=== PATIENT | female | born 1980 | race Caucasian/White ===

== ENCOUNTER 2020-06-18 11:08 | Outpatient (CLI) | payer OTHER, SELFPAY ==
--- NOTE | ~2020-06-18 | XR_ITS ---
XR hip RT min 2V 06/18/2020 11:34 Indication: Right hip pain Procedure: 3 views right hip Comparison: No prior studies for comparison. Findings: No acute fracture or traumatic malalignment. No significant soft tissue abnormality. Sacral foramen are symmetric. No significant joint space narrowing. Impression: 1: No significant bone or joint abnormality. Reviewed, dictated and finalized at location A. Impression: 1: No significant bone or joint abnormality.
[2020-06-18 12:43] LABS: Basophils Absolute Auto 0.1 K/mm3 (0.0-0.1); Basophils Percent Auto 0.9 % (0.2-1.2); Eosinophils Absolute Auto 0.1 K/mm3 (0-0.3); Eosinophils Percent Auto 1.7 % (0-4.4); Hematocrit 39.7 % (37.0-47.0); Hemoglobin 13.3 g/dL (12.0-15.0); Immature Granulocyte Absolute 0.01 K/mm3 (0.00-0.031); Immature Granulocyte Percent A 0.1 % (0-0.5); Lymphocytes Percent Auto 25.7 % (18.3-44.2); Mean Corpuscular HGB Conc 33.5 g/dl (32-36); Mean Corpuscular Hemoglobin 30.4 pg (26-34); Mean Corpuscular Volume 90.6 fl (80-100); Mean Platelet Volume 10.9 fl (7.4-10.4); Monocytes Absolute Auto 0.7 K/mm3 (0.1-0.6); Monocytes Percent Auto 8.5 % (2.6-8.5); Neutrophils Absolute Auto 4.9 K/mm3 (1.3-6.7); Neutrophils Percent Auto 63.1 % (45.5-73.1); Platelet Count Result 340 k/mm3 (150-375); Red Blood Count 4.38 M/mm3 (4.2-5.4); Red Cell Distribution Width 13.1 % (11.5-14.5); White Blood Count 7.8 K/mm3 (4.5-10.0)
[2020-06-18 13:00] LABS: Alanine Aminotransferase 18 U/L (4-35); Albumin Level 5.1 g/dL (3.5-5.1); Alkaline Phosphatase 57 U/L (38-126); Anion Gap 11 mmol/L (8-16); Aspartate Amino Transferase 26 U/L (14-36); Bilirubin,Total 0.3 mg/dL (0.2-1.3); Blood Urea Nitrogen 10 mg/dL (7-17); Carbon Dioxide 27 mmol/L (22-30); Chloride 98 mmol/L (98-107); Cholesterol 198 mg/dL (0-200); Estimated Glomerular Filt Rate > 60; Glucose 82 mg/dL (65-105); HDL Direct 92 mg/dL; Potassium 4.5 mmol/L (3.4-5.0); Sodium 136 mmol/L (137-145); Triglycerides 194 mg/dL (<150)
[2020-06-18 13:12] LABS: LDL Cholesterol Direct 85 mg/dL
[2020-06-18 13:16] LABS: Creatinine Urine 19.6 mg/dL
[2020-06-18 13:31] LABS: Total Triiodothyronine (T3) 1.22 NG/ML (0.97-1.69)
[2020-06-18 13:32] LABS: Free T4 Free Thyroxine 0.92 ng/mL (0.78-2.19); Vitamin D 25 Hydroxy 39.2 ng/mL
[2020-06-18 13:32] LABS: Microalbumin Urine Random < 6.0 mg/L (0-16.7)
== END 2020-06-18 11:09 | disposition home or self-care (01) ==
PROVIDERS: PCP Family Medicine; Visit Provider Nurse Practitioner
DX: Z00.01 Encounter for general adult medical examination with abnormal findings (principal); M25.551 Pain in right hip; I10 Essential (primary) hypertension; G35 Multiple sclerosis
CPT/HCPCS: 36415; 73502; 80053; 80061; 82043; 82306; 84439; 84443; 84480; 85025

== ENCOUNTER 2020-08-15 13:54 | Outpatient (CLI) | payer OTHER, SELFPAY ==
--- NOTE | ~2020-08-15 | MR_ITS ---
EXAMINATION: MR brain/brain stem wo/w con DATE: 08/15/2020 15:23 INDICATION: Multiple sclerosis. TECHNIQUE: Magnetic resonance imaging (MRI) of the brain and brainstem was performed without and with 10 mL MultiHance intravenous contrast. Sequences included sagittal and axial T1-weighted FLAIR, axia l T1-weighted FSE, axial diffusion-weighted FS EPI, sagittal T2-weighted FLAIR, axial T2*-weighted GR E, axial T2-weighted FLAIR Propeller, and axial T2-weighted Propeller. Postcontrast sequences include d axial, coronal, and sagittal T1-weighted FSE. Apparent diffusion coefficient (ADC) maps were create d. COMPARISON: Brain MRI 05/25/2013, 10/25/16 FINDINGS: There are greater than 20 total lesions of increased T2-weighted signal intensity in the br ain. Of these lesions, many are confluent in the periventricular region, several are juxtacortical, a nd one is infratentorial in the left midbrain. None of the lesions enhance. There is cystic encephalo malacia in the left occipital lobe periventricular white matter. There is no acute ischemic infarct o r intracranial hemorrhage. The ventricles are normal in size. The orbits are normal. There is mild mu cosal thickening in left maxillary sinus. The mastoid air cells are normal. IMPRESSION: 1. White matter lesions in the brain without change in number or distribution from 05/25/13, consistent with multiple sclerosis. Reviewed, dictated and finalized at location A. IMPRESSION: 1. White matter lesions in the brain without change in number or distribution f rom 05/25/13, consistent with multiple sclerosis.
--- NOTE | ~2020-08-15 | MR_ITS ---
EXAMINATION: MR cervical spine wo/w con DATE: 08/15/2020 15:40 INDICATION: Multiple sclerosis. TECHNIQUE: Magnetic resonance imaging (MRI) of the cervical spine was performed without and with 10 m L MultiHance intravenous contrast. Sequences included sagittal and axial T2-weighted FSE, sagittal ST IR FSE, and sagittal and axial T1-weighted FSE. Postcontrast sequences included sagittal and axial T1 -weighted FS FSE. COMPARISON: Cervical spine MRI 10/25/2016, 05/25/2013 FINDINGS: There is kyphosis of cervical spine and 10 degrees dextroscoliosis of cervicothoracic spine . Vertebral body heights are normal. There is mildly decreased disc height at C5-C6. There are approx imately 3 lesions of increased T2-weighted signal intensity in the cervical spinal cord. No abnormal contrast enhancement. The following disc levels are specifically discussed: C2-C3: The disc does not extend beyond the endplate margin. There is no uncovertebral joint osteoarth ritis. There is mild bilateral facet joint osteoarthritis. There is no neural foraminal stenosis. The re is no central canal stenosis. C3-C4: The disc does not extend beyond the endplate margin. There is no uncovertebral joint osteoarth ritis. There is no facet joint osteoarthritis. There is no neural foraminal stenosis. There is no roxie tral canal stenosis. C4-C5: The disc is mildly bulging. There is no uncovertebral joint osteoarthritis. There is no facet joint osteoarthritis. There is no neural foraminal stenosis. There is no central canal stenosis. C5-C6: The disc is bulging. There is mild bilateral uncovertebral joint osteoarthritis. There is mild left facet joint osteoarthritis. There is no neural foraminal stenosis. There is mild central canal stenosis with ventral indentation of the spinal cord. C6-C7: The disc does not extend beyond the endplate margin. There is no uncovertebral joint osteoarth ritis. There is no facet joint osteoarthritis. There is no neural foraminal stenosis. There is no roxie tral canal stenosis. C7-T1: The disc does not extend beyond the endplate margin. There is no uncovertebral joint osteoarth ritis. There is no facet joint osteoarthritis. There is no neural foraminal stenosis. There is no roxie tral canal stenosis. IMPRESSION: 1. Spinal cord lesions, stable from 05/25/2013, consistent with multiple sclerosis. 2. Mild cervical spondylosis. Reviewed, dictated and finalized at location A. IMPRESSION: 1. Spinal cord lesions, stable from 05/25/2013, consistent with multiple sclerosi s. 2. Mild cervical spondylosis.
== END 2020-08-15 13:55 | disposition home or self-care (01) ==
PROVIDERS: PCP Family Medicine; Visit Provider Psychiatry & Neurology Neurology
DX: G35 Multiple sclerosis (principal); M47.812 Spondylosis without myelopathy or radiculopathy, cervical region
CPT/HCPCS: 70553; 72156; A9577

== ENCOUNTER 2022-12-20 15:39 | Outpatient (CLI) | payer OTHER, SELFPAY ==
--- NOTE | ~2022-12-20 | XR_ITS ---
EXAMINATION: SACRUM/COCCYX DATE: 12/20/2022 16:12 INDICATION: Tail bone pain and low back pain after fall TECHNIQUE: Three views sacrum/coccyx FINDINGS: No prior studies There is no displaced fracture of the sacrum. The coccyx demonstrates overall normal morphology with out acute angulation. IMPRESSION: 1. No acute displaced osseous abnormality of the sacrum. Suspicion for occult or nondisplaced sacral fracture can either be evaluated with CT or MRI. 2. Grossly normal morphology to the coccyx without acute angulation. However, due to the wide range of normal variation of the coccyx, acute injury would be best evaluated by clinical examination and patient's symptoms. Reviewed, dictated and finalized at location L. R ENERGY SYSTEM INSTALLER
--- NOTE | ~2022-12-20 | XR_ITS ---
EXAMINATION: XR lumbar spine 2-3V DATE: 12/20/2022 16:11 INDICATION: Low back pain TECHNIQUE: Anteroposterior and lateral views of the lumbar spine, and cone-down lateral view of the l umbosacral junction were obtained. COMPARISON: None. FINDINGS: Bone alignment is normal. There is no fracture. There is mild loss of intervertebral disc s pace height at L5-S1. The vertebral body heights are maintained. IMPRESSION: 1. Mild lumbar spondylosis without acute findings. Reviewed, dictated and finalized at location F. INE ATTENDANT
== END 2022-12-20 15:40 | disposition home or self-care (01) ==
PROVIDERS: PCP Family Medicine; Visit Provider Nurse Practitioner Adult Health
DX: R25.2 Cramp and spasm (principal); M54.50 Low back pain, unspecified; M43.06 Spondylolysis, lumbar region
CPT/HCPCS: 72100; 72220

== ENCOUNTER 2024-09-14 11:39 | Emergency (ER) | payer OTHER, SELFPAY ==
[2024-09-14] VITALS (7 sets, daily range): BP systolic 110–141; BP diastolic 84–99; PULSE 77–146; RESP 13–20; TEMP 36.2–36.6; O2SAT 99–100
--- NOTE | ~2024-09-14 | CT_ITS ---
EXAMINATION: CT brain wo con DATE: 09/14/2024 18:41 INDICATION: paresthesias abdominal wall to thighs, hx of MS . TECHNIQUE: Computed tomography (CT) of the head was performed without intravenous contrast. The mA wa s adjusted according to patient size. Iterative reconstruction technique was employed. The dose-lengt h product was 605.33 mGy-cm. COMPARISON: MR brain 08/15/2020. FINDINGS: No acute intracranial hemorrhage or extra-axial fluid collection. No hydrocephalus, mass, or herniation. No acute ischemic infarct. Unremarkable dural venous sinus attenuation. No acute osseous abnormality. The aerated spaces are clear. Mild chronic white matter changes IMPRESSION: No acute intracranial process. Reviewed, dictated and finalized at location K. OF BUSINESS DEVELOPMENT
--- NOTE | 2024-09-14 13:03 | ECG_ITS ---
Test Date: 2024-09-14 13:12:41 Measurements Intervals [place] Rate: 108 P: 83 NH: 161 QRS: 79 QRSD: 68 T: 56 QT: 302 QTc: 406 Interpretive Statements SINUS TACHYCARDIA POSSIBLE RIGHT ATRIAL ENLARGEMENT POSSIBLE LEFT ATRIAL ENLARGEMENT POSSIBLE RIGHT VENTRICULAR CONDUCTION DELAY BORDERLINE ST ABNORMALITY- ANTEROLATERAL LEADS BASELINE ARTIFACT- I, III, AVR, AVL ,AVF, V1-V6 ABNORMAL ECG No previous ECG available for comparison Electronically Signed On 09-14-2024 13:35:00 PLANT INSPECTOR by Morales Cifuentes D.O.
--- NOTE | 2024-09-14 13:05 | ED.GENADULT ---
HPI - General Adult General Chief complaint: Unspecified <JHONATHAN Sanchez Last Filed: 09/14/24 13:13> Stated complaint: numbness to bilateral legs hx of MS. <JHONATAHN Sanchez Last Filed: 09/14/24 13:13> Time Seen by Provider: 09/14/24 13:05 <JHONATHAN Sanchez Last Filed: 09/14/24 13:13> Focused HPI: Patient is a 44 y/o female, with PMH of MS, who presents to the ED with c/o numbness. Patient reports having numbness in her upper abdomen radiating down to her thighs for the past few weeks. States it feels like novocaine in her body. States it has continued to worsen each day. Reports intermittent numbness/tingling in her arms, difficulty walking, intermittent racing heart palpations, increased SOB/dizziness with exertion over past couple weeks. States she was told her iron was low via outpatient blood work 2 weeks ago. She has been taking an OTC iron supplement. Denies focal weakness/numbness, vision changes, vision loss. States she is in between neurologists currently, planning to see someone at [facility] soon. She is not currently on any medications for MS, but states that is by choice. GENERAL: Well-appearing, thin, and in no acute distress. HEAD: Normocephalic, atraumatic. CHEST: Clear to auscultation. ?No respiratory distress. HEART: Borderline tachycardic with regular rhythm.? NEURO: ?Alert and oriented x3. No focal deficits. CN 2-12 intact. Equal fire services plumber strength phyllis. Patient screened in triage and initial orders placed.? ?Additional care and disposition to be based upon?diagnostic testing and treatment. <JHONATHAN Sanchez Last Filed: 09/14/24 13:13> Source: patient <JHONTAHAN Sanchez Last Filed: 09/14/24 13:13> Mode of arrival: ambulatory <JHONATHAN Sanchez Last Filed: 09/14/24 13:13> Limitations: no limitations <JHONATHAN Sanchez Last Filed: 09/14/24 13:13> History of Present Illness HPI narrative: Agree with above <Lona Norton MD - Last Filed: 09/14/24 19:37> Related Data Allergies/adverse reactions: Allergies Allergy/AdvReac Type Severity Reaction Status Date / Time No Known Allergies Allergy Unknown Unverified 09/14/24 14:26 <Chrissy Anderson PA-C - Last Filed: 09/14/24 13:13> Review of Systems Review of Systems: All systems reviewed & are unremarkable except as noted in HPI and below <Lona Norton MD - Last Filed: 09/14/24 19:37> Exam Narrative: GENERAL: Well-appearing, in no acute distress, pleasant cooperative HEAD: Normocephalic, atraumatic. EYES: PERRLA and EOMI. ENT: Mucous membranes moist. NECK: Supple. CHEST: No respiratory distress. HEART: Regular rate and rhythm ABDOMEN: Soft, nontender, nondistended EXTREMITIES: Normal range of motion. SKIN: Warm, dry, no rash. NEURO: + decreased sensation anterior abdominal wall extending to distal thighs, 5/5 strength in all extremities Alert and oriented x3. PSYCH: Normal mood and affect. <Lona Norton MD - Last Filed: 09/14/24 19:37> Course Vital Signs Vital signs: Vital Signs Temperature 97.2 F L 09/14/24 11:43 Pulse Rate 146 H 09/14/24 11:43 Respiratory Rate 18 09/14/24 11:43 Blood Pressure 141/99 H 09/14/24 11:43 Pulse Oximetry 99 09/14/24 11:43 Temperature 97.6 F 09/14/24 19:31 Pulse Rate 83 09/14/24 19:31 Respiratory Rate 13 09/14/24 19:31 Blood Pressure 111/95 H 09/14/24 19:31 Pulse Oximetry 100 09/14/24 19:31 <Chrissy Anderson PA-C - Last Filed: 09/14/24 13:13> Vital Signs Temperature 97.2 F L 09/14/24 11:43 Pulse Rate 146 H 09/14/24 11:43 Respiratory Rate 18 09/14/24 11:43 Blood Pressure 141/99 H 09/14/24 11:43 Pulse Oximetry 99 09/14/24 11:43 Temperature 97.6 F 09/14/24 19:31 Pulse Rate 83 09/14/24 19:31 Respiratory Rate 13 09/14/24 19:31 Blood Pressure 111/95 H 09/14/24 19:31 Pulse Oximetry 100 09/14/24 19:31 <Lona Norton MD - Last Filed: 09/14/24 19:37> Medical Decision Making MDM Narrative Medical decision making narrative: MSE by MARIN in triage. <Chrissy Anderson PA-C - Last Filed: 09/14/24 13:13> MSE by MARIN in triage. 44-year-old female presenting with numbness in her abdomen extending into her thighs. States that she just wants to make sure that it is related to her MS and not something else going on. Blood work is unremarkable. CT brain shows no acute abnormalities. Discussed with the patient that MRI is needed to evaluate for progression of her MS. Offered admission but she declines and states that she would like to go home and make an outpatient appointment. Feel that she is safe to do this. Appropriate return precautions given. Discharged in stable condition. <Lona Norton MD - Last Filed: 09/14/24 19:37> Vital Signs Vital Signs: Vital Signs Temperature 97.2 F L 09/14/24 11:43 Pulse Rate 146 H 09/14/24 11:43 Respiratory Rate 18 09/14/24 11:43 Blood Pressure 141/99 H 09/14/24 11:43 Pulse Oximetry 99 09/14/24 11:43 Temperature 97.6 F 09/14/24 19:31 Pulse Rate 83 09/14/24 19:31 Respiratory Rate 13 09/14/24 19:31 Blood Pressure 111/95 H 09/14/24 19:31 Pulse Oximetry 100 09/14/24 19:31 <Chrissy Anderson PA-C - Last Filed: 09/14/24 13:13> Vital Signs Temperature 97.2 F L 09/14/24 11:43 Pulse Rate 146 H 09/14/24 11:43 Respiratory Rate 18 09/14/24 11:43 Blood Pressure 141/99 H 11/25/24 11:43 Pulse Oximetry 99 09/14/24 11:43 Temperature 97.6 F 09/14/24 19:31 Pulse Rate 83 09/14/24 19:31 Respiratory Rate 13 09/14/24 19:31 Blood Pressure 111/95 H 09/14/24 19:31 Pulse Oximetry 100 09/14/24 19:31 <Lona Norton MD - Last Filed: 09/14/24 19:37> Lab Data Result diagrams: 09/14/24 13:17 09/14/24 13:17 <Chrissy Anderson PA-C - Last Filed: 09/14/24 13:13> Labs: Lab Results 09/14/24 09/14/24 Range/Units 13:17 18:16 WBC 8.9 (4.5-10.0) K/mm3 RBC 4.08 L (4.2-5.4) M/mm3 Hgb 10.8 L (12.0-15.0) g/dL Hct 35.8 L (37.0-47.0) % MCV 87.7 (80-100) fl MCH 26.5 (26-34) pg MCHC 30.2 L (32-36) g/dl RDW 20.3 H (11.5-14.5) % Plt Count 498 H (150-375) k/mm3 MPV 10.0 (7.4-10.4) fl Immature Gran % (Auto) 0.3 (0-0.5) % Neut % (Auto) 75.1 H (45.5-73.1) % Lymph % (Auto) 15.3 L (18.3-44.2) % Hayes % (Auto) 7.3 (2.6-8.5) % Eos % (Auto) 1.3 (0-4.4) % Baso % (Auto) 0.7 (0.2-1.2) % Lymph # (Auto) 1.36 (0.9-3.2) K/mm3 Hayes # (Auto) 0.7 H (0.1-0.6) K/mm3 Eos # (Auto) 0.1 (0-0.3) K/mm3 Baso # (Auto) 0.1 (0.0-0.1) K/mm3 Abs Immat Gran (auto) 0.03 (0.00-0.031) K/mm3 Absolute Neuts (auto) 6.7 (1.3-6.7) K/mm3 Absolute Nucleated RBC 0.000 (0.0-0.012) K/mm3 Nucleated RBC % 0.0 (0.0-0.2) % PT 13.4 (11.1-14.7) Seconds INR 1.0 APTT 26.8 (22.3-36.8) Seconds Sodium 136 L (137-145) mmol/L Potassium 4.5 (3.4-5.0) mmol/L Chloride 105 (98-107) mmol/L Carbon Dioxide 25 (22-30) mmol/L Anion Gap 6 (4-12) mmol/L BUN 16 (7-17) mg/dL Creatinine 0.60 L (0.7-1.0) mg/dL Estim Creat Clear Calc 82 ml/min Estimated GFR > 60 (59 - ) Glucose 100 (65-110) mg/dL Calcium 9.9 (8.4-10.2) mg/dL Magnesium 2.0 (1.6-2.3) mg/dL Total Bilirubin 0.3 (0.2-1.3) mg/dL AST 22 (14-36) U/L ALT 12 (6-35) U/L Alkaline Phosphatase 73 (38-126) U/L Troponin I < 0.012 (0.000-0.034) ng/mL NT-Pro-B Natriuret Pep 73 (19.9-100) pg/mL Total Protein 8.0 (6.3-8.2) g/dL Albumin 4.6 (3.5-5.1) g/dL POC Urine HCG, Qual Negative (Negative) <Chrissy Anderson PA-C - Last Filed: 09/14/24 13:13> Lab Results 09/14/24 09/14/24 Range/Units 13:17 18:16 WBC 8.9 (4.5-10.0) K/mm3 RBC 4.08 L (4.2-5.4) M/mm3 Hgb 10.8 L (12.0-15.0) g/dL Hct 35.8 L (37.0-47.0) % MCV 87.7 (80-100) fl MCH 26.5 (26-34) pg MCHC 30.2 L (32-36) g/dl RDW 20.3 H (11.5-14.5) % Plt Count 498 H (150-375) k/mm3 MPV 10.0 (7.4-10.4) fl Immature Gran % (Auto) 0.3 (0-0.5) % Neut % (Auto) 75.1 H (45.5-73.1) % Lymph % (Auto) 15.3 L (18.3-44.2) % Hayes % (Auto) 7.3 (2.6-8.5) % Eos % (Auto) 1.3 (0-4.4) % Baso % (Auto) 0.7 (0.2-1.2) % Lymph # (Auto) 1.36 (0.9-3.2) K/mm3 Hayes # (Auto) 0.7 H (0.1-0.6) K/mm3 Eos # (Auto) 0.1 (0-0.3) K/mm3 Baso # (Auto) 0.1 (0.0-0.1) K/mm3 Abs Immat Gran (auto) 0.03 (0.00-0.031) K/mm3 Absolute Neuts (auto) 6.7 (1.3-6.7) K/mm3 Absolute Nucleated RBC 0.000 (0.0-0.012) K/mm3 Nucleated RBC % 0.0 (0.0-0.2) % PT 13.4 (11.1-14.7) Seconds INR 1.0 APTT 26.8 (22.3-36.8) Seconds Sodium 136 L (137-145) mmol/L Potassium 4.5 (3.4-5.0) mmol/L Chloride 105 (98-107) mmol/L Carbon Dioxide 25 (22-30) mmol/L Anion Gap 6 (4-12) mmol/L BUN 16 (7-17) mg/dL Creatinine 0.60 L (0.7-1.0) mg/dL Estim Creat Clear Calc 82 ml/min Estimated GFR > 60 (59 - ) Glucose 100 (65-110) mg/dL Calcium 9.9 (8.4-10.2) mg/dL Magnesium 2.0 (1.6-2.3) mg/dL Total Bilirubin 0.3 (0.2-1.3) mg/dL AST 22 (14-36) U/L ALT 12 (6-35) U/L Alkaline Phosphatase 73 (38-126) U/L Troponin I < 0.012 (0.000-0.034) ng/mL NT-Pro-B Natriuret Pep 73 (19.9-100) pg/mL Total Protein 8.0 (6.3-8.2) g/dL Albumin 4.6 (3.5-5.1) g/dL POC Urine HCG, Qual Negative (Negative) <Lona Norton MD - Last Filed: 09/14/24 19:37> Imaging Data Radiologist's impression: ITS Impressions Head CT 09/14/24 18:45 IMPRESSION: No acute intracranial process. <Lona Norton MD - Last Filed: 09/14/24 19:37> Critical Care Time Critical Care Time Critical Care Time: No <Lona Norton MD - Last Filed: 09/14/24 19:37> Discharge Plan Discharge Clinical Impression: Multiple sclerosis, Paresthesia <Chrissy Anderson PA-C - Last Filed: 09/14/24 13:13> Patient Disposition: Home, Self-Care <Chrissy Anderson PA-C - Last Filed: 09/14/24 13:13> Condition: Stable <Chrissy Anderson PA-C - Last Filed: 09/14/24 13:13> Instructions: Antibiotic Form, Paresthesia (ED) <Chrissy Anderson PA-C - Last Filed: 09/14/24 13:13> Additional Instructions: Your workup today shows no acute abnormalities. Please follow-up closely with Neurology as discussed. If your symptoms worsen or other concerning symptoms arise, please return to the ER. <Chrissy Anderson PA-C - Last Filed: 09/14/24 13:13> Follow-up/Referrals: Caden Cuba MD [Primary Care Provider] - <Chrissy Anderson PA-C - Last Filed: 09/14/24 13:13>
[2024-09-14 13:36] LABS: Basophils Absolute Auto 0.1 K/mm3 (0.0-0.1); Basophils Percent Auto 0.7 % (0.2-1.2); Eosinophils Absolute Auto 0.1 K/mm3 (0-0.3); Eosinophils Percent Auto 1.3 % (0-4.4); Hematocrit 35.8 % (37.0-47.0); Hemoglobin 10.8 g/dL (12.0-15.0); Immature Granulocyte Absolute 0.03 K/mm3 (0.00-0.031); Immature Granulocyte Percent A 0.3 % (0-0.5); Lymphocytes Absolute Auto 1.36 K/mm3 (0.9-3.2); Lymphocytes Percent Auto 15.3 % (18.3-44.2); Mean Corpuscular HGB Conc 30.2 g/dl (32-36); Mean Corpuscular Hemoglobin 26.5 pg (26-34); Mean Corpuscular Volume 87.7 fl (80-100); Monocytes Absolute Auto 0.7 K/mm3 (0.1-0.6); Monocytes Percent Auto 7.3 % (2.6-8.5); Neutrophils Absolute Auto 6.7 K/mm3 (1.3-6.7); Neutrophils Percent Auto 75.1 % (45.5-73.1); Platelet Count Result 498 k/mm3 (150-375); Red Blood Count 4.08 M/mm3 (4.2-5.4); Red Cell Distribution Width 20.3 % (11.5-14.5); White Blood Count 8.9 K/mm3 (4.5-10.0)
[2024-09-14 13:46] LABS: Alanine Aminotransferase 12 U/L (6-35); Albumin Level 4.6 g/dL (3.5-5.1); Alkaline Phosphatase 73 U/L (38-126); Anion Gap 6 mmol/L (4-12); Aspartate Amino Transferase 22 U/L (14-36); Bilirubin,Total 0.3 mg/dL (0.2-1.3); Blood Urea Nitrogen 16 mg/dL (7-17); Calcium 9.9 mg/dL (8.4-10.2); Carbon Dioxide 25 mmol/L (22-30); Chloride 105 mmol/L (98-107); Estimated CRCL calculation 82 ml/min; Estimated Glomerular Filt Rate > 60; Glucose 100 mg/dL (65-110); Potassium 4.5 mmol/L (3.4-5.0); Sodium 136 mmol/L (137-145)
[2024-09-14 13:56] LABS: NT Pro B Type Natriuretic Pept 73 pg/mL (19.9-100); Troponin I < 0.012 ng/mL (0.000-0.034)
[2024-09-14 14:10] LABS: Partial Thromboplastin Time 26.8 Seconds (22.3-36.8); Prothrombin Time 13.4 Seconds (11.1-14.7)
[2024-09-14] MEDS: SODIUM CHLORIDE 0.9% IV 1,000 ML 999 ML IV CONT (17:49)
[2024-09-14 18:18] LABS: BEDSIDEPREGUCG Negative (Negative)
== END 2024-09-14 19:50 | disposition home or self-care (01) ==
PROVIDERS: Physician Assistant; Emergency Provider Emergency Medicine; PCP Family Medicine
DX: R20.2 Paresthesia of skin (principal); G35 Multiple sclerosis
CPT/HCPCS: 36415; 70450; 80053; 81025; 83735; 83880; 84484; 85025; 85610; 85730; 93005; 96360; 96361; 99284; J7030

== ENCOUNTER 2024-09-20 11:30 | Inpatient (IN) | payer OTHER, SELFPAY ==
[2024-09-20] VITALS (12 sets, daily range): BP systolic 126–161; BP diastolic 87–104; PULSE 76–107; RESP 15–18; TEMP 36.2–36.9; O2SAT 98–100; BMI 17.9
--- NOTE | ~2024-09-20 | CT_ITS ---
EXAMINATION: CT brain wo con DATE: 09/20/2024 15:06 INDICATION: MS flare . TECHNIQUE: Computed tomography (CT) of the head was performed without intravenous contrast. The mA wa s adjusted according to patient size. Iterative reconstruction technique was employed. The dose-lengt h product was 605.33 mGy-cm. COMPARISON: 09/14/2024. FINDINGS: No acute intracranial hemorrhage or extra-axial fluid collection. No hydrocephalus, mass, or herniation. No acute ischemic infarct. Unremarkable dural venous sinus attenuation. No acute osseous abnormality. The aerated spaces are clear. Mild patchy chronic white matter change, greater than expected for age, consistent with the given his tory of MS. IMPRESSION: No acute intracranial process. Reviewed, dictated and finalized at location K. ENFORCEMENT OFFICER
--- NOTE | ~2024-09-20 | MR_ITS ---
EXAMINATION: MR lumbar spine wo/w con DATE: 09/21/2024 09:24 INDICATION: Multiple sclerosis. Paresthesias. TECHNIQUE: Magnetic resonance imaging (MRI) of the lumbar spine was performed without and with 10 mL MultiHance intravenous contrast. COMPARISON: None FINDINGS: Alignment is normal. Vertebral body heights are normal. There is moderately decreased disc height at L5-S1. The distal spinal cord signal intensity is normal. The conus medullaris is at L1. Th e following disc levels are specifically discussed: L1-L2: The disc does not extend beyond the endplate margin. There is mild left facet joint osteoarthr itis. There is no neural foraminal stenosis. There is no central canal stenosis. L2-L3: The disc does not extend beyond the endplate margin. There is mild right and moderate left fac et joint osteoarthritis. There is no neural foraminal stenosis. There is no central canal stenosis. L3-L4: The disc does not extend beyond the endplate margin. There is severe bilateral facet joint ost eoarthritis. There is no neural foraminal stenosis. There is no central canal stenosis. L4-L5: The disc is bulging. There is mild bilateral facet joint osteoarthritis. There is mild right n eural foraminal stenosis. There is no central canal stenosis. L5-S1: The disc is bulging and has an annular fissure. There is no facet joint osteoarthritis. There is mild bilateral neural foraminal stenosis. There is mild central canal stenosis. IMPRESSION: 1. Moderate lower lumbar spondylosis. Reviewed, dictated and finalized at location A. O PRODUCTION SPECIALIST
--- NOTE | ~2024-09-20 | XR_ITS ---
EXAMINATION: XR chest 1V Exam Date/Time: 09/20/2024 15:00 DRUG ENFORCEMENT AGENT HISTORY: MS flare Comparison: None. RESULT: Lines, tubes, and devices: None. Lungs and pleura: Clear. Cardiomediastinal silhouette: Normal. Other: No acute osseous or upper abdominal finding. Scoliosis. IMPRESSION: No acute cardiopulmonary process. Reviewed, dictated and finalized at location K. ENFORCEMENT AGENT
--- NOTE | ~2024-09-20 | MR_ITS ---
EXAMINATION: MR thoracic spine wo/w con DATE: 09/21/2024 09:24 INDICATION: Multiple sclerosis. Paresthesias. TECHNIQUE: Magnetic resonance imaging (MRI) of the thoracic spine was performed without and with 10 m L MultiHance intravenous contrast. COMPARISON: None FINDINGS: There is 23 degrees levoscoliosis of cervicothoracic spine. Vertebral body heights are norm al. Intervertebral disc heights are normal. The disc do not extend beyond the endplate margins. There is multilevel mild facet joint osteoarthritis. No neural foraminal stenosis or central canal stenosi s. There is patchy ill-defined increased T2-weighted signal intensity throughout the spinal cord. No abnormal contrast enhancement. IMPRESSION: 1. Widespread lesions in the thoracic spinal cord, consistent with multiple sclerosis. Reviewed, dictated and finalized at location A. S REPRESENTATIVE [employer] IMPRESSION: 1. Widespread lesions in the thoracic spinal cord, consistent with multiple scl erosis.
--- NOTE | ~2024-09-20 | MR_ITS ---
EXAMINATION: MR brain/brain stem wo/w con DATE: 09/22/2024 09:25 INDICATION: Multiple sclerosis, acute exacerbation. TECHNIQUE: Magnetic resonance imaging (MRI) of the brain and brainstem was performed without and with 10 mL MultiHance intravenous contrast. COMPARISON: Brain MRI 08/15/2020 FINDINGS: There are greater than 40 lesions of increased T2-weighted signal intensity in the brain. O f these lesions, many are confluent in the periventricular region, several are juxtacortical, and two are infratentorial. None of the lesions enhance. There is no acute ischemic infarct or intracranial hemorrhage. The ventricles are normal in size. The orbits are normal. The paranasal sinuses are clear . The mastoid air cells are normal. IMPRESSION: 1. Worsened white matter lesions in the brain, consistent with multiple sclerosis. Reviewed, dictated and finalized at location A. CTOR OF VOCATIONAL GUIDANCE IMPRESSION: 1. Worsened white matter lesions in the brain, consistent with multiple scleros is.
--- NOTE | ~2024-09-20 | MR_ITS ---
EXAMINATION: MR cervical spine wo/w con DATE: 09/21/2024 09:23 INDICATION: Paresthesias. Multiple sclerosis. TECHNIQUE: Magnetic resonance imaging (MRI) of the cervical spine was performed without and with 10 m L Multihance intravenous contrast. Sequences included sagittal T2-weighted FSE, sagittal T2-weighted FS FSE, sagittal T1-weighted FSE, axial T2-weighted FSE, and axial T1-weighted SE. Postcontrast seque nces included sagittal T1-weighted FS FSE, and axial T1-weighted FS SE. COMPARISON: 08/15/2020 FINDINGS: Unchanged mild cervical kyphosis and 10 degrees cervical dextrocurvature. Vertebral body heights are normal. Bone marrow signal intensity is normal. Mild disc height loss with annular fissure at C5-C6 and minimal disc height loss at C4-C5. Interval increase in size and number of multiple T2 hyperintense cord lesions contrast likely consist ent with prior history of multiple sclerosis. Increase in size of a now mildly expansile lesion located below level of the ring of C1. Increase in size of a T2 hyperintense lesion at the right side of the cord at the level of the base o f C2. No significant change in a small T2 hyperintense lesion without evident expansion of the posterior co rd at the level of C2-C3. Mild increase in size of a T2 hyperintense lesion in central posterior cord at the level of C3-C4. Increase in size, now mildly expansile mild enhancement at the left side of the cord at the level of C4. New small T2 hyperintense lesion at the right side of the cord at the level of C5. New T2 hyperintense lesion on the left at C6. Increased size of a T2 hyperintense lesion in the posterior cord at C6-C7. The following disc levels are specifically discussed: C2-C3: The disc does not extend beyond the endplate margin. There is no uncovertebral joint osteoarth ritis. There is mild bilateral facet joint osteoarthritis. There is no neural foraminal stenosis. The re is no central canal stenosis. C3-C4: The disc does not extend beyond the endplate margin. There is no uncovertebral joint osteoarth ritis. There is no facet joint osteoarthritis. There is no neural foraminal stenosis. There is no roxie tral canal stenosis. C4-C5: Disc is mildly bulging. There is mild left uncovertebral joint osteoarthritis. There is no fac et joint osteoarthritis. There is no neural foraminal stenosis. There is negligible central canal maria eugenia nosis. C5-C6: Disc is bulging with annular fissure. There is mild right and moderate left uncovertebral join t osteoarthritis. There is mild left facet joint osteoarthritis. There is no neural foraminal stenosi s. There is mild central canal stenosis with indentation of the ventral surface of the cord. C6-C7: The disc does not extend beyond the endplate margin. There is no uncovertebral joint osteoarth ritis. There is no facet joint osteoarthritis. There is no neural foraminal stenosis. There is no roxie tral canal stenosis. C7-T1: The disc does not extend beyond the endplate margin. There is no uncovertebral joint osteoarth ritis. There is no facet joint osteoarthritis. There is no neural foraminal stenosis. There is no roxie tral canal stenosis. IMPRESSION: 1. Increase in number and size of multiple T2 hyperintense lesions, coupled which appear mildly expan sile and 1 at the level of C4 with mild enhancement consistent with progression and active flare of k nown multiple sclerosis. 2. Mild cervical spondylosis. Reviewed, dictated and finalized at location A. FACTURING ADVISOR IMPRESSION: 1. Increase in number and size of multiple T2 hyperintense lesions, coupled whi ch appear mildly expansile and 1 at the level of C4 with mild enhancement consi stent with progression and active flare of known multiple sclerosis. 2. Mild cervical spondylosis.
--- NOTE | 2024-09-20 14:37 | ECG_ITS ---
Test Date: 2024-09-20 14:48:23 Measurements Intervals [place] Rate: 75 P: 79 AK: 152 QRS: 74 QRSD: 84 T: 58 QT: 356 QTc: 400 Interpretive Statements SINUS RHYTHM MODERATE VOLTAGE CRITERIA FOR LVH, CONSIDER NORMAL VARIANT [MEETS CRITERIA IN ONE OF: R(aVL), S(V1), R(V5), R(V5/V6)+S(V1)] NONSPECIFIC T-WAVE ABNORMALITY ABNORMAL ECG Electronically Signed On 09-21-2024 08:53:56 MANAGER LEGAL by Jacoby Orr M.D.
--- NOTE | 2024-09-20 14:39 | ED_ITS ---
HPI - General Adult General Chief complaint: Unspecified Stated complaint: MS flare, here to be admitted Time Seen by Provider: 09/20/24 14:07 History of Present Illness HPI narrative: 44-year-old female with history of MS presents emergency department with concerns for an MS flare. Patient states for the past month she has had progressive numbness. States this started near her diaphragm and spread to her knees. She was evaluated in our ED on 09/14/2024 for her symptoms. She had a negative workup at that time and was advised to be admitted for MRI and further workup for MS flare. The patient did not want to be admitted and she went home. She presents today because since 09/14 she has developed progressive numbness from her knees to her feet. She denies focal weakness, vision changes, head injury trauma , fever. Reports history of low iron. She does not have a neurologist. patient states she was diagnosed with MS in 2000 shortly after giving and having visual changes. She does not recall where she originally was evaluated but believes it was [place] or [facility]. States she used to see Dr. Jimenes with [facility] before he retired. Was last seen 2 years ago. She has not been on medications in approximately 10 years due to adverse reactions to medications. She does not recall what these medications were. She cannot recall her last flare but knows it has been several years. Related Data Home Medications Medication Instructions Recorded Confirmed ferrous sulfate 325 mg (65 mg 325 mg PO DAILY 09/20/24 09/20/24 iron) tablet (FeroSul) ibuprofen 400 mg tablet 400 mg PO Q6H PRN Pain 09/20/24 09/20/24 Allergies Allergy/AdvReac Type Severity Reaction Status Date / Time No Known Allergies Allergy Unknown Unverified 09/14/24 14:26 Review of Systems Review of Systems: All systems reviewed & are unremarkable except as noted in HPI and below PMFSH Past Medical History Medical History (Updated 09/20/24 @ 21:44 by Trinidad Farnsworth PA-C) Multiple sclerosis Tobacco dependence Surgical History Surgical History (Updated 09/20/24 @ 21:40 by Trinidad Farnsworth PA-C) History of tubal ligation Family History Family History Other Unknown family medical history Social History Social History (Updated 09/20/24 @ 21:40 by RONALD Guzman Social History: Surrogate medical decision maker: Arnav Ray, significant other. Code status: Full code. Smoking packs per day: 1 Smoking cigarettes per day: 20.0 Years smoked: 25 Smoking pack-years: 25.00 Smoking status: Current every day smoker Alcohol intake: never Drinks per week: 2 Substance use: never Substance use type: marijuana Do You Feel Safe in your Home?: Yes Lack of Transportation: No Lack of Food: Never True Current Housing: I Have Housing Concerned About Future Housing: No Difficulty Paying Gas/Electric Bills: No Difficulty Paying for Meds: No Currently Unemployed: No Education: High School Diploma/GED Difficulty w/ Childcare or Family Care: No Spiritual care concerns: No Exam Narrative: GENERAL: Well-appearing, well-nourished, and in no acute distress. HEAD: Normocephalic, atraumatic. EYES: PERRLA and EOMI. ENT: Nares clear, no rhinorrhea or epistaxis. Mucous membranes moist. NECK: Supple. no nuchal rigidity CHEST: Clear to auscultation. No respiratory distress. HEART: Regular rate and rhythm. No murmur heard. Normal peripheral pulses. ABDOMEN: Soft, nontender, nondistended, normal active bowel sounds. EXTREMITIES: Normal range of motion. No edema. SKIN: Warm, dry, no rash. NEURO: Alert and oriented x3. Cranial nerves 2-12 intact. Strength 5 in 5 in BUE and BLE. Diminished sharp and dull sensation to the bilateral lower extremities. DP pulses 2+. Extremities pink, warm and dry Course Vital Signs Vital signs: Vital Signs Temperature 97.2 F L 09/20/24 11:36 Pulse Rate 107 H 09/20/24 11:36 Respiratory Rate 18 09/20/24 11:36 Blood Pressure 148/104 H 09/20/24 11:36 Pulse Oximetry 100 09/20/24 11:36 Temperature 98.4 F 09/20/24 19:36 Pulse Rate 89 09/20/24 19:36 Respiratory Rate 18 09/20/24 19:36 Blood Pressure 161/99 H 09/20/24 19:36 Pulse Oximetry 99 09/20/24 19:36 Oxygen Delivery Room Air 09/20/24 20:45 Medical Decision Making MDM Narrative Medical decision making narrative: 44-year-old female with history of MS presents to the emergency department for an MS flare. Patient is reporting progressive numbness or prior diaphragm to her feet over the past month. She has no strength deficits on exam but does have decreased sharp and dull sensation to her bilateral lower extremities. Her triage vitals were significant for tachycardia 107, that has since resolved. She is afebrile nontoxic appearing. Exam is significant for the above. CBC shows no leukocytosis. Chemistries are unremarkable. UA with 6-10 wbc's 1+ bacteria, 1+ ketones. Patient denies signs or symptoms of UTI, will wait for urine culture results. EKG shows sinus rhythm with a rate of 75 ppm, normal NE interval, normal QRS duration, normal QTC, inverted T-waves in lead V3, otherwise no acute ischemic changes. Troponin is undetectable. CT brain shows no acute findings. Mag normal at 2. B12 level within normal limits. Patient updated on workup. Plan to admit to the hospitalist for MRI and Neurology consult in the morning. Discussed case with hospitalist Trinidad DOSHI, who agrees to admission. Agrees to 1000 mg of Solu-Medrol now. Consult for Neurology placed for tomorrow morning. Vital Signs Vital Signs: Vital Signs Temperature 97.2 F L 09/20/24 11:36 Pulse Rate 107 H 09/20/24 11:36 Respiratory Rate 18 09/20/24 11:36 Blood Pressure 148/104 H 09/20/24 11:36 Pulse Oximetry 100 09/20/24 11:36 Temperature 98.4 F 09/20/24 19:36 Pulse Rate 89 09/20/24 19:36 Respiratory Rate 18 09/20/24 19:36 Blood Pressure 161/99 H 09/20/24 19:36 Pulse Oximetry 99 09/20/24 19:36 Oxygen Delivery Room Air 09/20/24 20:45 Lab Data 09/20/24 14:55 09/20/24 14:55 Labs: Lab Results 09/20/24 09/20/24 Range/Units 14:55 15:11 WBC 8.2 (4.5-10.0) K/mm3 RBC 3.90 L (4.2-5.4) M/mm3 Hgb 10.9 L (12.0-15.0) g/dL Hct 34.4 L (37.0-47.0) % MCV 88.2 (80-100) fl MCH 27.9 D (26-34) pg MCHC 31.7 L (32-36) g/dl RDW 20.0 H (11.5-14.5) % Plt Count 495 H (150-375) k/mm3 MPV 10.1 (7.4-10.4) fl Immature Gran % (Auto) 0.4 (0-0.5) % Neut % (Auto) 71.7 (45.5-73.1) % Lymph % (Auto) 17.5 L (18.3-44.2) % Hinds % (Auto) 8.8 H (2.6-8.5) % Eos % (Auto) 0.9 (0-4.4) % Baso % (Auto) 0.7 (0.2-1.2) % Lymph # (Auto) 1.44 (0.9-3.2) K/mm3 Hinds # (Auto) 0.7 H (0.1-0.6) K/mm3 Eos # (Auto) 0.1 (0-0.3) K/mm3 Baso # (Auto) 0.1 (0.0-0.1) K/mm3 Abs Immat Gran (auto) 0.03 (0.00-0.031) K/mm3 Absolute Neuts (auto) 5.9 (1.3-6.7) K/mm3 Absolute Nucleated RBC 0.000 (0.0-0.012) K/mm3 Nucleated RBC % 0.0 (0.0-0.2) % PT 14.1 (11.1-14.7) Seconds INR 1.1 APTT 28.1 (22.3-36.8) Seconds Sodium 135 L (137-145) mmol/L Potassium 3.9 (3.4-5.0) mmol/L Chloride 104 (98-107) mmol/L Carbon Dioxide 27 (22-30) mmol/L Anion Gap 4 (4-12) mmol/L BUN 15 (7-17) mg/dL Creatinine 0.70 (0.7-1.0) mg/dL Estim Creat Clear Calc Not Reportable Estimated GFR > 60 (59 - ) Glucose 84 (65-110) mg/dL Calcium 9.4 (8.4-10.2) mg/dL Magnesium 2.0 (1.6-2.3) mg/dL Total Bilirubin 0.4 (0.2-1.3) mg/dL AST 21 (14-36) U/L ALT 13 (6-35) U/L Alkaline Phosphatase 71 (38-126) U/L Troponin I < 0.012 (0.000-0.034) ng/mL Total Protein 7.0 (6.3-8.2) g/dL Albumin 4.4 (3.5-5.1) g/dL Vitamin B6 Pending Vitamin B12 746.0 (239-931) pg/mL Urine Color Yellow (Yellow) Urine Appearance Cloudy H (Clear) Urine pH 5.5 (5.0-9.0) Ur Specific [place] 1.012 (1.001-1.035) Urine Protein Negative (Negative) mg/dL Urine Glucose (UA) Negative (Negative) mg/dL Urine Ketones 1+ H (Negative) mg/dL Ur Blood (Man) Negative (Negative) Urine Nitrate Negative (Negative) Urine Bilirubin Negative (Negative) Urine Urobilinogen 0.2 (<2.0) mg/dL Leukocyte Esterase Rfl Negative (Negative) RK/UL Urine RBC 0-2 (0-2) /hpf Urine WBC 6-10 H (0-3) /hpf Ur Squamous Epith Cells Few (Few) /hpf Urine Bacteria 1+ H /hpf Urine Casts 0-2 Discharge Plan Discharge Clinical Impression: Multiple sclerosis Patient Disposition: Still a Patient Condition: Stable
[2024-09-20 15:03] LABS: Basophils Absolute Auto 0.1 K/mm3 (0.0-0.1); Basophils Percent Auto 0.7 % (0.2-1.2); Eosinophils Absolute Auto 0.1 K/mm3 (0-0.3); Eosinophils Percent Auto 0.9 % (0-4.4); Hematocrit 34.4 % (37.0-47.0); Hemoglobin 10.9 g/dL (12.0-15.0); Immature Granulocyte Absolute 0.03 K/mm3 (0.00-0.031); Immature Granulocyte Percent A 0.4 % (0-0.5); Lymphocytes Absolute Auto 1.44 K/mm3 (0.9-3.2); Lymphocytes Percent Auto 17.5 % (18.3-44.2); Mean Corpuscular HGB Conc 31.7 g/dl (32-36); Mean Corpuscular Hemoglobin 27.9 pg (26-34); Mean Corpuscular Volume 88.2 fl (80-100); Mean Platelet Volume 10.1 fl (7.4-10.4); Monocytes Absolute Auto 0.7 K/mm3 (0.1-0.6); Monocytes Percent Auto 8.8 % (2.6-8.5); Neutrophils Absolute Auto 5.9 K/mm3 (1.3-6.7); Neutrophils Percent Auto 71.7 % (45.5-73.1); Platelet Count Result 495 k/mm3 (150-375); White Blood Count 8.2 K/mm3 (4.5-10.0)
[2024-09-20 15:16] LABS: Alanine Aminotransferase 13 U/L (6-35); Albumin Level 4.4 g/dL (3.5-5.1); Alkaline Phosphatase 71 U/L (38-126); Anion Gap 4 mmol/L (4-12); Aspartate Amino Transferase 21 U/L (14-36); Bilirubin,Total 0.4 mg/dL (0.2-1.3); Blood Urea Nitrogen 15 mg/dL (7-17); Calcium 9.4 mg/dL (8.4-10.2); Carbon Dioxide 27 mmol/L (22-30); Chloride 104 mmol/L (98-107); Estimated Glomerular Filt Rate > 60; Glucose 84 mg/dL (65-110); INR 1.1; Partial Thromboplastin Time 28.1 Seconds (22.3-36.8); Potassium 3.9 mmol/L (3.4-5.0); Prothrombin Time 14.1 Seconds (11.1-14.7); Sodium 135 mmol/L (137-145)
[2024-09-20 15:28] LABS: Troponin I < 0.012 ng/mL (0.000-0.034)
[2024-09-20 15:29] LABS: Add Urine Microscopic? YES; Appearance Urine Cloudy (Clear); Bacteria Urine 1+ /hpf; Bilirubin Urine Negative (Negative); Blood Urine Negative (Negative); Color Urine Yellow (Yellow); Glucose Urine UA Negative (Negative); Ketones Urine 1+ mg/dL (Negative); Leukocyte Esterase Ur Negative LEU/UL (Negative); Nitrate Urine Negative (Negative); Non Pathogenic Casts 0-2; Protein Urine Negative (Negative); RBC Urine 0-2 /hpf (0-2); Specific Grav Ur 1.012 (1.001-1.035); Squamous Epithelial Cell Urine Few /hpf (Few); Urobilinogen Urine 0.2 mg/dL (<2.0); pH Urine 5.5 (5.0-9.0)
[2024-09-20] MEDS: methylPREDNISolone SOD SUCC 1,000 MG in DEXTROSE 5% 100 ML 200 MG IVPB (18:17)
--- NOTE | 2024-09-20 19:10 | PM.IMHP ---
H&P: HPI History of Present Illness Date/Time: 09/20/24 19:10 Chief Complaint: Suspected MS flare. Narrative: This is a pleasant 44-year-old female smoker with multiple sclerosis not currently on treatment who presented to the emergency department via private vehicle with suspected MS flare. The patient provides the following history. She is chronically fatigued and has intermittent symptoms related to her multiple sclerosis including extremity weakness and occasional paresthesias. Over the last several weeks she has developed a significant increase in sensory symptoms including paresthesias around her trunk and into both legs, it almost feels numb to her like Novocain is wearing off. Her legs are a bit more weak than usual as well. She denies visual changes, difficulty speaking and swallowing, gait disturbances, bladder and bowel dysfunction, and shortness of breath. She has not had any falls. She also denies fever, chills, sweats, cold and flu symptoms, cough, dysuria, and diarrhea. In the ED: She was afebrile on arrival with stable vital signs. Labs are significant for WBC count of 8.2, hemoglobin 10.9, sodium 135. Urinalysis was positive for 1+ ketones, 6 to 10 WBC, and 1+ bacteria. Head CT showed no acute intracranial process. Chest x-ray shows no acute cardiopulmonary process. She was given Solu-Medrol 1000 mg IV and is being admitted in this setting for further treatment and evaluation as well as neurology consultation. Review of Systems Review of Systems: 12 systems were reviewed and are negative except for as per HPI. [facility] Past Medical History Medical History (Updated 09/20/24 @ 21:44 by Trinidad Farnsworth PA-C) Multiple sclerosis Tobacco dependence Surgical History Surgical History (Updated 09/20/24 @ 21:40 by Trinidad Farnsworth PA-C) History of tubal ligation Family History Family History Other Unknown family medical history Social History Social History (Updated 09/20/24 @ 21:40 by Trinidad Farnsworth PA-C) Social History: Surrogate medical decision maker: Arnav Ray, significant other. Code status: Full code. Smoking packs per day: 1 Smoking cigarettes per day: 20.0 Years smoked: 25 Smoking pack-years: 25.00 Smoking status: Current every day smoker Alcohol intake: never Drinks per week: 2 Substance use: never Substance use type: marijuana Do You Feel Safe in your Home?: Yes Lack of Transportation: No Lack of Food: Never True Current Housing: I Have Housing Concerned About Future Housing: No Difficulty Paying Gas/Electric Bills: No Difficulty Paying for Meds: No Currently Unemployed: No Education: High School Diploma/GED Difficulty w/ Childcare or Family Care: No Spiritual care concerns: No Meds Home Medications and Allergies Home Medications Medication Instructions Recorded Confirmed Type ferrous sulfate 325 mg (65 mg 325 mg PO DAILY 09/20/24 09/20/24 History iron) tablet (FeroSul) ibuprofen 400 mg tablet 400 mg PO Q6H PRN Pain 09/20/24 09/20/24 History Allergies Allergy/AdvReac Type Severity Reaction Status Date / Time No Known Allergies Allergy Unknown Unverified 09/14/24 14:26 Vital Signs Vital Signs - 24 hr 09/20/24 11:36 09/20/24 13:59 09/20/24 16:16 Temperature 97.2 F L Pulse Rate 107 H 78 90 Respiratory Rate 18 17 16 Blood Pressure 148/104 H 131/95 H 133/87 Pulse Oximetry 100 100 99 09/20/24 16:16 09/20/24 17:45 09/20/24 16:00 Temperature Pulse Rate 80 82 Respiratory Rate 16 15 Blood Pressure 127/96 H Pulse Oximetry 99 09/20/24 16:15 09/20/24 16:30 09/20/24 16:45 Temperature Pulse Rate 81 77 80 Respiratory Rate 16 15 15 Blood Pressure 133/87 130/97 H 126/93 H Pulse Oximetry 98 99 98 09/20/24 17:15 09/20/24 17:30 09/20/24 18:22 Temperature Pulse Rate 77 76 79 Respiratory Rate 16 15 16 Blood Pressure 128/92 H 129/90 128/92 H Pulse Oximetry 100 100 98 Exam Narrative: General: Well-developed, thin female sitting up in bed in no acute distress. HEENT: PERRL, EOMI. Sclera anicteric. Oral mucosa moist. Neck: Supple. Respiratory: Lungs are clear to auscultation bilaterally. Cardiovascular: Regular rate and rhythm with S1-S2. Gastrointestinal: Abdomen is soft, nontender, and nondistended with positive bowel sounds. Skin: Warm and dry. No rash or lesions on limited exam. Extremities: No cyanosis, clubbing, or edema. Radial and pedal pulses intact. Neurological: Alert. Cranial nerves 2-12 are grossly intact. Speech is clear. No facial asymmetry. Hand import coordination and production head and foot pushes are equal bilaterally. Mild bilateral ankle clonus. Subjective decrease in sensation throughout the trunk and lower extremities. Psychiatric: Cooperative with appropriate mood and flat affect. H&P: Results Labs Labs: Short CBC 09/20/24 Range/Units 14:55 WBC 8.2 (4.5-10.0) K/mm3 Hgb 10.9 L (12.0-15.0) g/dL Hct 34.4 L (37.0-47.0) % Plt Count 495 H (150-375) k/mm3 BMP 09/20/24 14:55 Sodium 135 L Potassium 3.9 Chloride 104 Carbon Dioxide 27 BUN 15 Creatinine 0.70 Glucose 84 Calcium 9.4 Cardiac Enzymes 09/20/24 Range/Units 14:55 Troponin I < 0.012 (0.000-0.034) ng/mL Liver Function 09/20/24 Range/Units 14:55 Total Bilirubin 0.4 (0.2-1.3) mg/dL AST 21 (14-36) U/L ALT 13 (6-35) U/L Alkaline Phosphatase 71 (38-126) U/L Albumin 4.4 (3.5-5.1) g/dL Urine 09/20/24 Range/Units 15:11 Urine Color Yellow (Yellow) Urine Appearance Cloudy H (Clear) Urine pH 5.5 (5.0-9.0) Ur Specific [place] 1.012 (1.001-1.035) Urine Protein Negative (Negative) mg/dL Urine Glucose (UA) Negative (Negative) mg/dL Impressions Head CT 09/20/24 15:10 IMPRESSION: No acute intracranial process. Chest X-Ray 09/20/24 15:12 IMPRESSION: No acute cardiopulmonary process. Assessment and Plan Assessment and plan (1) Paresthesias: Code(s): R20.2 - Paresthesia of skin Status: Acute (2) Multiple sclerosis: Code(s): G35 - Multiple sclerosis Status: Acute (3) Tobacco dependence: Code(s): F17.200 - Nicotine dependence, unspecified, uncomplicated Status: Acute Plan The patient presented to the emergency department for evaluation of increasing paresthesias as detailed in HPI. Labs, imaging, EKG, and all reports were personally reviewed. Her symptoms are likely related to her multiple sclerosis for which she has not been on treatment for many years as she had multiple side effects with the medication. Her quality of life seems to be more affected now. MR of the spine has been ordered. She received Solu-Medrol 1000 mg in the ED; consult Dr. Mackenzie for further recommendations. Check B12 to rule out deficiency. Smoking cessation is encouraged. She declines the need for nicotine patch. Her home medications will be reviewed and resumed as appropriate. Findings and treatment plan were discussed with the patient. Questions were solicited and answered to satisfaction. The patient's medical management will be taken over by the hospitalist team in a.m. Quality VTE Prophylaxis VTE prophylaxis: mechanical ordered If No VTE Prophylaxis Answer both mechanical and pharmacologic: Reason no pharmacologic proph: low risk/not indicated The patient has been admitted under observation status. Hospitalist MIPS Advance Care Plan I have confirmed that the patient's Advanced Care Plan is present, code status is documented, or surrogate decision maker is listed in patient medical record.: Yes Medication Reconciliation I have utilized all available resources to obtain, update and review the patients current medications (includes all prescriptions, OTC, herbals, cannabis, and nutritional supplements).: Yes
--- NOTE | 2024-09-20 19:23 | PC.NURSE ---
Patient denies any significant health history aside from MS; Family medical history is unknown. Admission report provided to VERNON Mccoy.
--- NOTE | 2024-09-20 23:09 | ADMGEN ---
This patient, Cory Magallanes, was admitted to [facility] Surg Room 315-02. Patient/family oriented to hospital policies and general routines including ID bracelet, bed and alarms, visiting hours, pain management, procedures, bathroom and other care routines, personal items, smoking policy, room service/diet, and visiting hours. Information on how to activate the Rapid Response Team has been discussed. Patient/Family are encouraged to report perceived risks to care and to ask questions if they do not understand what they are told or what they should do.
[2024-09-21 05:45] VITALS: BP 106/90; PULSE 83; RESP 18; TEMP 36.3; O2SAT 100
[2024-09-21] MEDS: ALPRAZolam (*CRX) 0.25 MG TABLET PO (07:09)
[2024-09-21 07:48] LABS: Anion Gap 7 mmol/L (4-12); Blood Urea Nitrogen 12 mg/dL (7-17); Carbon Dioxide 25 mmol/L (22-30); Chloride 105 mmol/L (98-107); Estimated CRCL calculation 81 ml/min; Estimated Glomerular Filt Rate > 60; Glucose 155 mg/dL (65-110); Potassium 3.9 mmol/L (3.4-5.0); Sodium 137 mmol/L (137-145)
[2024-09-21 08:17] LABS: Thyroid Stimulating Hormone Reflex 0.449 uIU/mL (0.465-4.68)
[2024-09-21] MEDS: FERROUS SULFATE 325 MG TABLET DR BY MOUTH (09:23)
[2024-09-21 10:09] LABS: Cholesterol 191 mg/dL (0-200); HDL Direct 84 mg/dL; Triglycerides 68 mg/dL (<150)
[2024-09-21 10:20] LABS: LDL Cholesterol Direct 82 mg/dL
[2024-09-21 10:31] VITALS: BMI 17.9
[2024-09-21 11:45] LABS: Free T4 Free Thyroxine Reflex 1.19 ng/dL (0.78-2.19)
--- NOTE | 2024-09-21 11:52 | WPDNEURCNPN ---
Assessment and Plan Assessment and plan (1) Multiple sclerosis: Code(s): G35 - Multiple sclerosis Status: Acute Assessment and Plan: Previous records have shown multiple white matter lesions in her brain as well as cervical spinal cord. I do not see any of the thoracic spinal cord results. Prove some of the previous MRI were only available in form of reports and actual films were not visible were reviewed. The most recent evaluation of 2019 also has shown multiple findings but the films are still not visible set of MRI in progress were we have ordered MRI of the brain, cervical and thoracic spine. the MRI of the cervical spine shows increase in the number and size of hyperintense lesion and mild enhancement consistent the progression active flare of the known multiple sclerosis lesion. Clearly this patient has a significant disease and as we know that the patient with the spinal cord and infratentorial lesion 10 to have a more aggressive course and should be treated with disease modifying therapy such as Kesimpta or Ocrevus or similar. I made her aware of the fact that be have numerous twice as compared to what she may have been on 22 years ago. Although some side effect may need to be in mind but overall pre to have more choices and more effective medications of course she will require close follow-up. He at this time a course of Solu-Medrol pulse therapy and a course of physical therapy for any of 5 days is recommended. Following 5 days of therapy we can give her prednisone 80 mg followed by a tapering down dose to stop over course of 10 days and follow up in my office in 4-6 weeks time. I have given her my office phone number and shall be glad to see her. (2) Tobacco dependence: Code(s): F17.200 - Nicotine dependence, unspecified, uncomplicated Status: Acute Consult date: 09/21/24 HPI: Cory Magallanes is a 44 year old female with history of multiple sclerosis diagnosed in 2000 has been under care of Dr. Jimenes and Dr. Stratton and Dr. Humphries on and off in the past but has not been continuously under care of any neurologist for quite some time. At 1 time she was on Betaseron and another time she was on CAPOX on but she states that the medications led to some side effects and she got off all medications. She recently had developed weakness in both lower limbs. Had some bladder problem on and off in the past. She does recall having the visual loss in both eyes as the initial symptom of her multiple sclerosis in 2000 which subsequently improved. She does smoke. An MRI of the brain performed 2019 has shown white matter changes. MRI of the cervical spine in way back in 2003 had shown multiple white matter changes in the spinal cord. She lives with the boyfriend and states that she is able to get around. She has some numbness in her hands again the left side. She has not had any course of Solu-Medrol recently. No history of trauma or febrile illness. Review of Systems Review of Systems: She denies any visual symptoms or any bladder bowel symptoms at this time. All systems reviewed & are unremarkable except as noted in HPI and below PMFSH Past Medical History Medical History Multiple sclerosis Tobacco dependence Surgical History Surgical History History of tubal ligation Family History Family History Other Unknown family medical history Social History Social History Social History: Surrogate medical decision maker: Arnav Ray, significant other. Code status: Full code. Smoking packs per day: 1 Smoking cigarettes per day: 20.0 Years smoked: 25 Smoking pack-years: 25.00 Smoking status: Current every day smoker Alcohol intake: never Drinks per week: 2 Substance use: never Substance use type: marijuana Do You Feel Safe in your Home?: Yes Lack of Transportation: No Lack of Food: Never True Current Housing: I Have Housing Concerned About Future Housing: No Difficulty Paying Gas/Electric Bills: No Difficulty Paying for Meds: No Currently Unemployed: No Education: High School Diploma/GED Difficulty w/ Childcare or Family Care: No Spiritual care concerns: No Meds Home Medications and Allergies Home Medications Medication Instructions Recorded Confirmed Type ferrous sulfate 325 mg (65 mg 325 mg PO DAILY 09/20/24 09/20/24 History iron) tablet (FeroSul) ibuprofen 400 mg tablet 400 mg PO Q6H PRN Pain 09/20/24 09/20/24 History Allergies Allergy/AdvReac Type Severity Reaction Status Date / Time No Known Allergies Allergy Unknown Unverified 09/14/24 14:26 Vital Signs Vital Signs - 24 hr 09/20/24 13:59 09/20/24 16:16 09/20/24 16:16 Temperature Pulse Rate 78 90 Respiratory Rate 17 16 16 Blood Pressure 131/95 H 133/87 Pulse Oximetry 100 99 Oxygen Delivery 09/20/24 17:45 09/20/24 16:00 09/20/24 16:15 Temperature Pulse Rate 80 82 81 Respiratory Rate 15 16 Blood Pressure 127/96 H 133/87 Pulse Oximetry 99 98 Oxygen Delivery 09/20/24 16:30 09/20/24 16:45 09/20/24 17:15 Temperature Pulse Rate 77 80 77 Respiratory Rate 15 15 16 Blood Pressure 130/97 H 126/93 H 128/92 H Pulse Oximetry 99 98 100 Oxygen Delivery 09/20/24 17:30 09/20/24 18:22 09/20/24 19:36 Temperature 98.4 F Pulse Rate 76 79 89 Respiratory Rate 15 16 18 Blood Pressure 129/90 128/92 H 161/99 H Pulse Oximetry 100 98 99 Oxygen Delivery 09/20/24 20:45 09/21/24 05:45 09/21/24 09:20 Temperature 97.4 F L Pulse Rate 83 Respiratory Rate 18 Blood Pressure 106/90 Pulse Oximetry 100 Oxygen Delivery Room Air Room Air Exam Narrative: Fully conscious alert oriented to self time place and person. Speech is fluent and articulate. Memory appears intact. Vital signs stable. Afebrile. Exam of head and neck was unremarkable. No evidence of external trauma. No carotid bruit. cranial nerves: Pupils were large and sluggishly reactive to light. Extraocular movements intact. Visual romero by confrontation are normal. No facial asymmetry. Other cranial nerves within normal limits. Motor system normal power in both upper limbs mild weakness in both lower limbs power grade 4/5 deep tendon reflexes were brisk at 3:04 a.m. in both upper and lower limbs. Sensory exam revealed decreased sensation to temperature and vibration in lower limbs compared to limbs however no sensory level noted on the trunk. Intention tremors or nystagmus. Remainder of the hand findings within acceptable normal limits. Gait was not tested at this time. Results Labs 09/20/24 14:55 09/21/24 06:50 Labs: Short CBC 09/20/24 Range/Units 14:55 WBC 8.2 (4.5-10.0) K/mm3 Hgb 10.9 L (12.0-15.0) g/dL Hct 34.4 L (37.0-47.0) % Plt Count 495 H (150-375) k/mm3 BMP 09/20/24 09/21/24 14:55 06:50 Sodium 135 L 137 Potassium 3.9 3.9 Chloride 104 105 Carbon Dioxide 27 25 BUN 15 12 Creatinine 0.70 0.60 L Glucose 84 155 H Calcium 9.4 9.0 Cardiac Enzymes 09/20/24 Range/Units 14:55 Troponin I < 0.012 (0.000-0.034) ng/mL Liver Function 09/20/24 Range/Units 14:55 Total Bilirubin 0.4 (0.2-1.3) mg/dL AST 21 (14-36) U/L ALT 13 (6-35) U/L Alkaline Phosphatase 71 (38-126) U/L Albumin 4.4 (3.5-5.1) g/dL Urine 09/20/24 Range/Units 15:11 Urine Color Yellow (Yellow) Urine Appearance Cloudy H (Clear) Urine pH 5.5 (5.0-9.0) Ur Specific [place] 1.012 (1.001-1.035) Urine Protein Negative (Negative) mg/dL Urine Glucose (UA) Negative (Negative) mg/dL
[2024-09-21 12:26] LABS: Total Triiodothyronine (T3) 1.02 NG/ML (0.97-1.69)
--- NOTE | 2024-09-21 13:57 | P.PNIM_ITS ---
Progress Note: A&P Assessment and Plan (1) Multiple sclerosis: Code(s): G35 - Multiple sclerosis Status: Acute Assessment and Plan: - MRI Cervical, Thoracic and Lumbar spine reviewed. - MRI Cervical and Thoracic spine showing progression and active flare of known multiple sclerosis, compared to previous imaging. - Started on IV steroids in ER. - Seen by Neurologist and we'll continue IV steroids per neurologist. - PT eval and treatment. - Fall precautions. (2) Paresthesias: Code(s): R20.2 - Paresthesia of skin Status: Acute Assessment and Plan: - Likely related to above. - Continue IV steroids. - PT eval and treatment. (3) Tobacco dependence: Code(s): F17.200 - Nicotine dependence, unspecified, uncomplicated Status: Acute Assessment and Plan: - Admits to 1ppd smoking currently. - Nicotine patch PRN. - Encouraged with cessation. Plan Continue IV steroids and start tapering after 5 days. PT eval and treatment. Time Spent With Patient Time with patient: 15 - 25 minutes Subjective Date/time seen: 09/21/24 13:57 Patient states she feels alright. States still has weakness, mainly from her chest going down. Interval history: Patient calm on bedrest and looks to be in no acute distress. Review of Systems Review of Systems: 12 systems were reviewed and are negativ e except for as per HPI. All systems reviewed & are unremarkable except as noted in HPI and below Exam Narrative: General: Well-developed, thin female on bedrest and in no acute distress. HEENT: PERRL, EOMI. Sclera anicteric. Oral mucosa moist. Neck: Supple. Respiratory: Lungs are clear to auscultation bilaterally. Cardiovascular: Regular rate and rhythm with S1-S2. Gastrointestinal: Abdomen is soft, nontender, and nondistended with positive bowel sounds. Skin: Warm and dry. No rash or lesions on limited exam. Extremities: No cyanosis, clubbing, or edema. Radial and pedal pulses intact. Neurological: Alert. Cranial nerves 2-12 are grossly intact. Speech is clear. No facial asymmetry. Hand engineer geophysical laboratory and foot pushes are equal bilaterally. Subjective decrease in sensation throughout the trunk and lower extremities. Psychiatric: Cooperative with appropriate mood and flat affect. Objective Data Vital Signs Vital Signs: Vital Signs - 24 hr 09/20/24 13:59 09/20/24 16:16 09/20/24 16:16 Temperature Pulse Rate 78 90 Respiratory Rate 17 16 16 Blood Pressure 131/95 H 133/87 Pulse Oximetry 100 99 Oxygen Delivery 09/20/24 17:45 09/20/24 16:00 09/20/24 16:15 Temperature Pulse Rate 80 82 81 Respiratory Rate 15 16 Blood Pressure 127/96 H 133/87 Pulse Oximetry 99 98 Oxygen Delivery 09/20/24 16:30 09/20/24 16:45 09/20/24 17:15 Temperature Pulse Rate 77 80 77 Respiratory Rate 15 15 16 Blood Pressure 130/97 H 126/93 H 128/92 H Pulse Oximetry 99 98 100 Oxygen Delivery 09/20/24 17:30 09/20/24 18:22 09/20/24 19:36 Temperature 98.4 F Pulse Rate 76 79 89 Respiratory Rate 15 16 18 Blood Pressure 129/90 128/92 H 161/99 H Pulse Oximetry 100 98 99 Oxygen Delivery 09/20/24 20:45 09/21/24 05:45 09/21/24 09:20 Temperature 97.4 F L Pulse Rate 83 Respiratory Rate 18 Blood Pressure 106/90 Pulse Oximetry 100 Oxygen Delivery Room Air Room Air Intake/Output Intake/Output: Intake & Output 09/18/24 09/19/24 09/20/24 09/21/24 23:59 23:59 23:59 23:59 Intake Total 116 340 Balance 116 340 Meds/Results Medications: Active Medications Generic Name Dose Route Start Last Admin Trade Name Freq PRN Reason Stop Dose Admin Acetaminophen 650 mg 09/20/24 21:49 Acetaminophen 325 Mg Tablet PO Q6H PRN Mild Pain (1-3) or Fever Alprazolam 0.25 mg 09/22/24 09:00 Alprazolam (*Crx) 0.25 Mg Tablet PO 09/22/24 09:01 ONCE ONE Ferrous Sulfate 325 mg 09/21/24 09:00 09/21/24 09:23 Ferrous Sulfate [address] BY MOUTH 325 mg DAILY DUARTE Administration Methylprednisolone Sodium 104 mls @ 200 mls/hr 09/21/24 12:00 09/21/24 13:15 Succinate 250 mg/ Dextrose IVPB 200 mls/hr Q6HR DUARTE Administration Radiology Results: ITS Impressions Head CT 09/20/24 15:10 IMPRESSION: No acute intracranial process. Chest X-Ray 09/20/24 15:12 IMPRESSION: No acute cardiopulmonary process. Cervical Spine MRI 09/21/24 09:26 IMPRESSION: 1. Increase in number and size of multiple T2 hyperintense lesions, coupled which appear mildly expansile and 1 at the level of C4 with mild enhancement con sistent with progression and active flare of known multiple sclerosis. 2. Mild cervical spondylosis. Lumbar Spine MRI 09/21/24 10:22 IMPRESSION: 1. Moderate lower lumbar spondylosis. Thoracic Spine MRI 09/21/24 10:36 IMPRESSION: 1. Widespread lesions in the thoracic spinal cord, consistent with multiple sclerosis. Labs Labs: Laboratory Results - last 24 hr 09/20/24 09/20/24 09/21/24 14:55 15:11 06:48 WBC 8.2 RBC 3.90 L Hgb 10.9 L Hct 34.4 L MCV 88.2 MCH 27.9 D MCHC 31.7 L RDW 20.0 H Plt Count 495 H MPV 10.1 Immature Gran % (Auto) 0.4 Neut % (Auto) 71.7 Lymph % (Auto) 17.5 L [place] % (Auto) 8.8 H Eos % (Auto) 0.9 Baso % (Auto) 0.7 Lymph # (Auto) 1.44 [place] # (Auto) 0.7 H Eos # (Auto) 0.1 Baso # (Auto) 0.1 Abs Immat Gran (auto) 0.03 Absolute Neuts (auto) 5.9 Absolute Nucleated RBC 0.000 Nucleated RBC % 0.0 PT 14.1 INR 1.1 APTT 28.1 Sodium 135 L Potassium 3.9 Chloride 104 Carbon Dioxide 27 Anion Gap 4 BUN 15 Creatinine 0.70 Estim Creat Clear Calc Not Reportable Estimated GFR > 60 Glucose 84 Calcium 9.4 Magnesium 2.0 Total Bilirubin 0.4 AST 21 ALT 13 Alkaline Phosphatase 71 Troponin I < 0.012 Total Protein 7.0 Albumin 4.4 Triglycerides 68 Cholesterol 191 LDL Cholesterol Direct 82 HDL Direct 84 Vitamin B12 746.0 Vitamin D 25-Hydroxy 48.0 TSH (Reflex) Free T4 Total T3 Urine Color Yellow Urine Appearance Cloudy H Urine pH 5.5 Ur Specific [place] 1.012 Urine Protein Negative Urine Glucose (UA) Negative Urine Ketones 1+ H Ur Blood (Man) Negative Urine Nitrate Negative Urine Bilirubin Negative Urine Urobilinogen 0.2 Leukocyte Esterase Rfl Negative Urine RBC 0-2 Urine WBC 6-10 H Ur Squamous Epith Cells Few Urine Bacteria 1+ H Urine Casts 0-2 09/21/24 06:50 WBC RBC Hgb Hct MCV MCH MCHC RDW Plt Count MPV Immature Gran % (Auto) Neut % (Auto) Lymph % (Auto) [place] % (Auto) Eos % (Auto) Baso % (Auto) Lymph # (Auto) [place] # (Auto) Eos # (Auto) Baso # (Auto) Abs Immat Gran (auto) Absolute Neuts (auto) Absolute Nucleated RBC Nucleated RBC % PT INR APTT Sodium 137 Potassium 3.9 Chloride 105 Carbon Dioxide 25 Anion Gap 7 BUN 12 Creatinine 0.60 L Estim Creat Clear Calc 81 Estimated GFR > 60 Glucose 155 H Calcium 9.0 Magnesium 2.0 Total Bilirubin AST ALT Alkaline Phosphatase Troponin I Total Protein Albumin Triglycerides Cholesterol LDL Cholesterol Direct HDL Direct Vitamin B12 Vitamin D 25-Hydroxy TSH (Reflex) 0.449 L Free T4 1.19 Total T3 1.02 Urine Color Urine Appearance Urine pH Ur Specific [place] Urine Protein Urine Glucose (UA) Urine Ketones Ur Blood (Man) Urine Nitrate Urine Bilirubin Urine Urobilinogen Leukocyte Esterase Rfl Urine RBC Urine WBC Ur Squamous Epith Cells Urine Bacteria Urine Casts Quality VTE Prophylaxis VTE prophylaxis: mechanical ordered Hospitalist MIPS Advance Care Plan I have confirmed that the patient's Advanced Care Plan is present, code status is documented, or surrogate decision maker is listed in patient medical record.: Yes Medication Reconciliation I have utilized all available resources to obtain, update and review the patients current medications (includes all prescriptions, OTC, herbals, cannabis, and nutritional supplements).: Yes
[2024-09-21 14:00] VITALS: BP 116/77; PULSE 86; RESP 18; TEMP 36.2; O2SAT 100
[2024-09-21] MEDS: ACETAMINOPHEN 325 MG TABLET 650 MG PO (14:38)
[2024-09-21 21:46] VITALS: BP 147/86; PULSE 79; RESP 14; TEMP 36.9; O2SAT 99
[2024-09-22 05:25] VITALS: BP 117/78; PULSE 74; RESP 14; TEMP 36.2; O2SAT 99
[2024-09-22] MEDS: ACETAMINOPHEN 325 MG TABLET 650 MG PO ×2 (06:15→17:55)
[2024-09-22] MEDS: FERROUS SULFATE 325 MG TABLET DR BY MOUTH (08:20)
[2024-09-22] MEDS: ALPRAZolam (*CRX) 0.25 MG TABLET PO (08:36)
--- NOTE | 2024-09-22 11:45 | PM.IMPN ---
Progress Note: A&P Assessment and Plan (1) Multiple sclerosis: Code(s): G35 - Multiple sclerosis Status: Acute Assessment and Plan: - MRI Cervical, Thoracic and Lumbar spine reviewed. - MRI Cervical and Thoracic spine showing progression and active flare of known multiple sclerosis, compared to previous imaging. - Continue IV steroids per neurologist. - Patient independent and does not require PT eval and treatment. (2) Paresthesias: Code(s): R20.2 - Paresthesia of skin Status: Acute Assessment and Plan: - Likely related to above. - Continue IV steroids. (3) Tobacco dependence: Code(s): F17.200 - Nicotine dependence, unspecified, uncomplicated Status: Acute Assessment and Plan: - Admits to 1ppd smoking currently. - Nicotine patch PRN. - Encouraged with cessation. Plan Continue IV steroids for now per neurologist and start tapering after 5 days. Time Spent With Patient Time with patient: less than 15 minutes Subjective Date/time seen: 09/22/24 11:45 Patient states she feels alright and has no complaints. States she will walk on the hallway by herself and does not need any PT assistance. Interval history: Patient calm on bedrest and looks to be in no acute distress. Review of Systems Review of Systems: 12 systems were reviewed and are negative except for as per HPI. All systems reviewed & are unremarkable except as noted in HPI and below Exam Narrative: General: Well-developed, thin female on bedrest, and in no acute distress. HEENT: PERRL, EOMI. Sclera anicteric. Oral mucosa moist. Neck: Supple. Respiratory: Lungs are clear to auscultation bilaterally. Cardiovascular: Regular rate and rhythm with S1-S2. Gastrointestinal: Abdomen is soft, nontender, and nondistended with positive bowel sounds. Skin: Warm and dry. No rash or lesions noted. Extremities: No cyanosis, clubbing, or edema. Radial and pedal pulses intact. Neurological: Alert and well oriented. Cranial nerves 2-12 are grossly intact. Speech is clear. No facial asymmetry. Hand hot knife cutter and foot pushes are equal bilaterally. Subjective decrease in sensation throughout the trunk and lower extremities. Psychiatric: Cooperative with appropriate mood and flat affect. Objective Data Vital Signs Vital Signs: Vital Signs - 24 hr 09/21/24 14:00 09/21/24 21:46 09/21/24 20:00 Temperature 97.2 F L 98.5 F Pulse Rate 86 79 Respiratory Rate 18 14 Blood Pressure 116/77 147/86 H Pulse Oximetry 100 99 Oxygen Delivery Room Air 09/22/24 05:25 09/22/24 08:00 Temperature 97.1 F L Pulse Rate 74 Respiratory Rate 14 Blood Pressure 117/78 Pulse Oximetry 99 Oxygen Delivery Room Air Intake/Output Intake/Output: Intake & Output 09/19/24 09/20/24 09/21/24 09/22/24 23:59 23:59 23:59 23:59 Intake Total 116 1028 988 Balance 116 1028 988 Meds/Results Medications: Active Medications Generic Name Dose Route Start Last Admin Trade Name Freq PRN Reason Stop Dose Admin Acetaminophen 650 mg 09/20/24 21:49 09/22/24 06:15 Acetaminophen 325 Mg Tablet PO 650 mg Q6H PRN Administration Mild Pain (1-3) or Fever Ferrous Sulfate 325 mg 09/21/24 09:00 09/22/24 08:20 Ferrous Sulfate [address] BY MOUTH 325 mg DAILY DUARTE Administration Methylprednisolone Sodium 104 mls @ 200 mls/hr 09/21/24 12:00 09/22/24 11:40 Succinate 250 mg/ Dextrose IVPB 200 mls/hr Q6HR DUARTE Administration Radiology Results: ITS Impressions Head CT 09/20/24 15:10 IMPRESSION: No acute intracranial process. Chest X-Ray 09/20/24 15:12 IMPRESSION: No acute cardiopulmonary process. Cervical Spine MRI 09/21/24 09:26 IMPRESSION: 1. Increase in number and size of multiple T2 hyperintense lesions, coupled which appear mildly expansile and 1 at the level of C4 with mild enhancement consistent with progression and active flare of known multiple sclerosis. 2. Mild cervical spondylosis. Lumbar Spine MRI 09/21/24 10:22 IMPRESSION: 1. Moderate lower lumbar spondylosis. Thoracic Spine MRI 09/21/24 10:36 IMPRESSION: 1. Widespread lesions in the thoracic spinal cord, consistent with multiple sclerosis. Brain MRI 09/22/24 09:30 IMPRESSION: 1. Worsened white matter lesions in the brain, consistent with multiple sclerosis. Labs Labs: Laboratory Results - last 24 hr 09/21/24 06:50 Free T4 1.19 Total T3 1.02 Quality VTE Prophylaxis VTE prophylaxis: mechanical ordered Hospitalist MIPS Advance Care Plan I have confirmed that the patient's Advanced Care Plan is present, code status is documented, or surrogate decision maker is listed in patient medical record.: Yes Medication Reconciliation I have utilized all available resources to obtain, update and review the patients current medications (includes all prescriptions, OTC, herbals, cannabis, and nutritional supplements).: Yes
[2024-09-22 13:53] VITALS: BP 112/81; PULSE 77; RESP 18; TEMP 36.2; O2SAT 99
[2024-09-22 21:21] VITALS: BP 121/80; PULSE 65; RESP 16; TEMP 36.4; O2SAT 98
[2024-09-23] MEDS: ACETAMINOPHEN 325 MG TABLET 650 MG PO ×3 (05:30→18:40)
[2024-09-23 05:55] VITALS: BP 108/74; PULSE 70; RESP 12; TEMP 36.2; O2SAT 100
[2024-09-23 08:13] VITALS: O2SAT 99
[2024-09-23] MEDS: FERROUS SULFATE 325 MG TABLET DR BY MOUTH (08:23)
--- NOTE | 2024-09-23 14:00 | OBPPTRN ---
Patient transferred to post room #[id number] via ambulation. Oriented to unit, room, information board, rooming in, admission packet and security measures. Patient verbalizes understanding.
[2024-09-23 14:15] VITALS: BP 140/82; PULSE 88; RESP 16; TEMP 36.7; O2SAT 100
--- NOTE | 2024-09-23 14:26 | P.PNIM_ITS ---
Progress Note: A&P Assessment and Plan (1) Multiple sclerosis: Code(s): G35 - Multiple sclerosis Status: Acute Assessment and Plan: - MRI Cervical, Thoracic and Lumbar spine reviewed. - MRI Cervical and Thoracic spine showing progression and active flare of known multiple sclerosis, compared to previous imaging. - Continue IV steroids X5 days inpatient per neurologist ( Until 12/6/ 6PM), then PO thereafter with tapered dosing at home. - Patient independent and does not require PT eval or treatment, has been ambulating hallways. - Outpatient f/u with neurologist. (2) Paresthesias: Code(s): R20.2 - Paresthesia of skin Status: Acute Assessment and Plan: - Likely related to above. - Continue IV steroids. (3) Tobacco dependence: Code(s): F17.200 - Nicotine dependence, unspecified, uncomplicated Status: Acute Assessment and Plan: - Admits to 1ppd smoking currently. - Nicotine patch PRN. - Encouraged with cessation. Plan Continue IV steroids X5 days ( Last dose 09/25, PPM) for now per neurologist and start tapering with PO dosing thereafter. Time Spent With Patient Time with patient: less than 15 minutes Subjective Date/time seen: 09/23/24 14:26 Patient states she feels alright and has no distressful symptoms. Interval history: Patient calm on bedrest with family bedside, looks to be in no acute distress. Review of Systems Review of Systems: 12 systems were reviewed and are negativ e except for as per HPI. All systems reviewed & are unremarkable except as noted in HPI and below Exam Narrative: General: Well-developed, thin female on bedrest, and in no acute distress. HEENT: PERRL, EOMI. Sclera anicteric. Oral mucosa moist. Neck: Supple. Respiratory: Lungs are clear to auscultation bilaterally. Cardiovascular: Regular rate and rhythm with S1-S2. Gastrointestinal: Abdomen is soft, nontender, and nondistended with positive bowel sounds. Skin: Warm and dry. No rash or lesions noted. Extremities: No cyanosis, clubbing, or edema. Radial and pedal pulses intact. Neurological: Alert and well oriented. Cranial nerves 2-12 are grossly intact. Speech is clear. No facial asymmetry. Hand electrical appliance servicer and foot pushes are equal bilaterally. Subjective decrease in sensation throughout the trunk and lower extremities. Psychiatric: Cooperative with appropriate mood and flat affect. Objective Data Vital Signs Vital Signs: Vital Signs - 24 hr 09/22/24 21:21 09/22/24 20:00 09/23/24 05:55 Temperature 97.5 F L 97.2 F L Pulse Rate 65 70 Respiratory Rate 16 12 Blood Pressure 121/80 108/74 Pulse Oximetry 98 100 Oxygen Delivery Room Air 09/23/24 08:13 09/23/24 08:00 Temperature Pulse Rate Respiratory Rate Blood Pressure Pulse Oximetry 99 Oxygen Delivery Room Air Room Air Intake/Output Intake/Output: Intake & Output 09/20/24 09/21/24 09/22/24 09/23/24 23:59 23:59 23:59 23:59 Intake Total 116 1028 2015 834 Balance 116 1028 2015 834 Meds/Results Medications: Active Medications Generic Name Dose Route Start Last Admin Trade Name Freq PRN Reason Stop Dose Admin Acetaminophen 650 mg 09/20/24 21:49 09/23/24 12:26 Acetaminophen 325 Mg Tablet PO 650 mg Q6H PRN Administration Mild Pain (1-3) or Fever Ferrous Sulfate 325 mg 09/21/24 09:00 09/23/24 08:23 Ferrous Sulfate [address] BY MOUTH 325 mg DAILY DUARTE Administration Methylprednisolone Sodium 104 mls @ 200 mls/hr 09/21/24 12:00 09/23/24 12:27 Succinate 250 mg/ Dextrose IVPB 200 mls/hr Q6HR DUARTE Administration Radiology Results: ITS Impressions Head CT 09/20/24 15:10 IMPRESSION: No acute intracranial process. Chest X-Ray 09/20/24 15:12 IMPRESSION: No acute cardiopulmonary process. Cervical Spine MRI 09/21/24 09:26 IMPRESSION: 1. Increase in number and size of multiple T2 hyperintense lesions, coupled which appear mildly expansile and 1 at the level of C4 with mild enhancement co nsistent with progression and active flare of known multiple sclerosis. 2. Mild cervical spondylosis. Lumbar Spine MRI 09/21/24 10:22 IMPRESSION: 1. Moderate lower lumbar spondylosis. Thoracic Spine MRI 09/21/24 10:36 IMPRESSION: 1. Widespread lesions in the thoracic spinal cord, consistent with multiple sclerosis. Brain MRI 09/22/24 09:30 IMPRESSION: 1. Worsened white matter lesions in the brain, consistent with multiple sclerosis. Quality VTE Prophylaxis VTE prophylaxis: mechanical ordered Hospitalist MIPS Advance Care Plan I have confirmed that the patient's Advanced Care Plan is present, code status is documented, or surrogate decision maker is listed in patient medical record.: Yes Medication Reconciliation I have utilized all available resources to obtain, update and review the patients current medications (includes all prescriptions, OTC, herbals, cannabis, and nutritional supplements).: Yes
[2024-09-23 14:35] VITALS: BP 140/84
[2024-09-23 22:15] VITALS: BP 128/71; PULSE 64; RESP 16; TEMP 36.8; O2SAT 99
[2024-09-24] MEDS: ACETAMINOPHEN 325 MG TABLET 650 MG PO ×4 (00:30→18:24)
[2024-09-24 05:41] VITALS: BP 127/72; PULSE 55; RESP 14; TEMP 36.9; O2SAT 97
[2024-09-24] MEDS: FERROUS SULFATE 325 MG TABLET DR BY MOUTH (08:07)
[2024-09-24 08:40] VITALS: BP 136/87; PULSE 56; RESP 16; TEMP 37.1; O2SAT 99
--- NOTE | 2024-09-24 11:56 | PM.IMPN ---
Progress Note: A&P Assessment and Plan (1) Multiple sclerosis: Code(s): G35 - Multiple sclerosis Status: Acute (2) Tobacco dependence: Code(s): F17.200 - Nicotine dependence, unspecified, uncomplicated Status: Acute (3) Paresthesias: Code(s): R20.2 - Paresthesia of skin Status: Acute Plan 44-year-old female smoker with multiple sclerosis not currently on treatment who presented to the emergency department with suspected MS flare.Head CT showed no acute intracranial process. Chest x-ray shows no acute cardiopulmonary process.MRI Cervical and Thoracic spine showing progression and active flare of known multiple sclerosis, compared to previous imaging. Neurology was consulted. 1. Multiple sclerosis flare: Continue with high-dose steroid therapy for 5 days Patient ambulating independently in the hallway Plan to start on taper steroid after finishing 5 days of steroid therapy Patient will have outpatient follow-up with Dr. Mackenzie in 4-6 weeks time 2. DVT prophylaxis: SCDs 3. Code status: Full 4. Disposition: Pending completion of IV steroid therapy Time Spent With Patient Time with patient: less than 15 minutes Subjective Date/time seen: 09/24/24 11:56 Interval history: No acute events overnight Review of Systems Review of Systems: All systems reviewed & are unremarkable except as noted in HPI and below Exam Narrative: General: Well-developed, thin female on bedrest, and in no acute distress. HEENT: PERRL, EOMI. Sclera anicteric. Oral mucosa moist. Neck: Supple. Respiratory: Lungs are clear to auscultation bilaterally. Cardiovascular: Regular rate and rhythm with S1-S2. Gastrointestinal: Abdomen is soft, nontender, and nondistended with positive bowel sounds. Skin: Warm and dry. No rash or lesions noted. Extremities: No cyanosis, clubbing, or edema. Radial and pedal pulses intact. Neurological: Alert and well oriented. Cranial nerves 2-12 are grossly intact. Speech is clear. No facial asymmetry. Hand pbx operator and foot pushes are equal bilaterally. Subjective decrease in sensation throughout the trunk and lower extremities. Psychiatric: Cooperative with appropriate mood Objective Data Vital Signs Vital Signs: Vital Signs - 24 hr 09/23/24 14:15 09/23/24 14:15 09/23/24 14:35 Temperature 98.1 F Pulse Rate 88 Respiratory Rate 16 Blood Pressure 140/82 140/84 Pulse Oximetry 100 Oxygen Delivery Room Air 09/23/24 22:15 09/24/24 05:41 09/24/24 08:40 Temperature 98.3 F 98.4 F 98.7 F Pulse Rate 64 55 L 56 L Respiratory Rate 16 14 16 Blood Pressure 128/71 127/72 136/87 Pulse Oximetry 99 97 99 Oxygen Delivery Intake/Output Intake/Output: Intake & Output 09/21/24 09/22/24 09/23/24 09/24/24 23:59 23:59 23:59 23:59 Intake Total 1028 2015 1042 208 Balance 1028 2015 1042 208 Meds/Results Medications: Active Medications Generic Name Dose Route Start Last Admin Trade Name Freq PRN Reason Stop Dose Admin Acetaminophen 650 mg 09/20/24 21:49 09/24/24 05:36 Acetaminophen 325 Mg Tablet PO 650 mg Q6H PRN Administration Mild Pain (1-3) or Fever Ferrous Sulfate 325 mg 09/21/24 09:00 09/24/24 08:07 Ferrous Sulfate [address] BY MOUTH 325 mg DAILY [facility] Administration Methylprednisolone Sodium 104 mls @ 200 mls/hr 09/21/24 12:00 09/24/24 06:07 Succinate 250 mg/ Dextrose IVPB 09/26/24 11:59 Infused Q6HR [facility] Infusion Prednisone 1 each 09/25/24 08:00 Prednisone Taper PO DAILY@0800 [facility] Radiology Results: ITS Impressions Head CT 09/20/24 15:10 IMPRESSION: No acute intracranial process. Chest X-Ray 09/20/24 15:12 IMPRESSION: No acute cardiopulmonary process. Cervical Spine MRI 09/21/24 09:26 IMPRESSION: 1. Increase in number and size of multiple T2 hyperintense lesions, coupled which appear mildly expansile and 1 at the level of C4 with mild enhancement consistent with progression and active flare of known multiple sclerosis. 2. Mild cervical spondylosis. Lumbar Spine MRI 09/21/24 10:22 IMPRESSION: 1. Moderate lower lumbar spondylosis. Thoracic Spine MRI 09/21/24 10:36 IMPRESSION: 1. Widespread lesions in the thoracic spinal cord, consistent with multiple sclerosis. Brain MRI 09/22/24 09:30 IMPRESSION: 1. Worsened white matter lesions in the brain, consistent with multiple sclerosis. Quality VTE Prophylaxis VTE prophylaxis: mechanical ordered
[2024-09-24 19:47] LABS: Vitamin B6 29.5 ng/mL (2.1-21.7)
[2024-09-24 21:35] VITALS: BP 115/75; PULSE 55; RESP 12; TEMP 36.8; O2SAT 97
[2024-09-25] MEDS: ACETAMINOPHEN 325 MG TABLET 650 MG PO ×4 (00:08→19:09)
[2024-09-25 07:04] VITALS: BP 130/91; PULSE 61; RESP 16; TEMP 36.7; O2SAT 98
--- NOTE | 2024-09-25 08:21 | P.PNIM_ITS ---
Progress Note: A&P Assessment and Plan (1) Multiple sclerosis: Code(s): G35 - Multiple sclerosis Status: Acute Assessment and Plan: * Neurology consulted * MRI showing progression of MS with acute flare compared to previous MRI * Neurology recommended burst high dose steriods 5 days thru 09/26/24 will then transition to oral taper x 10 days * PT * Follow-up with Neurology Dr. Mackenzie in 4-6 weeks post discharge (2) Paresthesias: Code(s): R20.2 - Paresthesia of skin Status: Acute Assessment and Plan: * Secondary to MS flare-up * PT * See above (3) Tobacco dependence: Code(s): F17.200 - Nicotine dependence, unspecified, uncomplicated Status: Acute Assessment and Plan: ? smoking cessation education ? nicotine patch daily ? remove at night Plan Code status: Full code per patient DVT prophylaxis: SCD/ambulatory Stress ulcer prophylaxis: NA PT/OT notes: PT Disposition: Patient continues admission to the medical unit for MS flare-up currently on IV high dose methylprednisone plan for transitioned to oral taper tomorrow and can likely discharge home. Time Spent With Patient Time with patient: 15 - 25 minutes Subjective Date/time seen: 09/25/24 08:21 Interval history: Patient is a 44-year-old female who was admitted to the medical unit for further treatment multiple sclerosis flare-up 09/25/24: Assumed Care Patient with no complaints ready to go home plan for discharge after final dose of IVP steroids Review of Systems Review of Systems: 12 systems were reviewed and are negativ e except for as per HPI. All systems reviewed & are unremarkable except as noted in HPI and below Exam Narrative: General: Well-developed, thin female on bedrest, and in no acute distress. HEENT: PERRL, EOMI. Sclera anicteric. Oral mucosa moist. Neck: Supple. Respiratory: Lungs are clear to auscultation bilaterally. Cardiovascular: Regular rate and rhythm with S1-S2. Gastrointestinal: Abdomen is soft, nontender, and nondistended with positive bowel sounds. Skin: Warm and dry. No rash or lesions noted. Extremities: No cyanosis, clubbing, or edema. Radial and pedal pulses intact. Neurological: Alert and well oriented. Cranial nerves 2-12 are grossly intact. Speech is clear. No facial asymmetry. Hand chorus master and foot pushes are equal bilaterally. Psychiatric: Cooperative with appropriate mood Objective Data Vital Signs Vital Signs: Vital Signs - 24 hr 09/24/24 08:40 09/24/24 21:35 09/25/24 07:04 Temperature 98.7 F 98.2 F 98.1 F Pulse Rate 56 L 55 L 61 Respiratory Rate 16 12 16 Blood Pressure 136/87 115/75 130/91 H Pulse Oximetry 99 97 98 Oxygen Delivery 09/25/24 07:04 Temperature Pulse Rate Respiratory Rate Blood Pressure Pulse Oximetry Oxygen Delivery Room Air Intake/Output Intake/Output: Intake & Output 09/22/24 09/23/24 09/24/24 09/25/24 23:59 23:59 23:59 23:59 Intake Total 2015 1042 416 104 Balance 2016 1042 416 104 Meds/Results Medications: Active Medications Generic Name Dose Route Start Last Admin Trade Name Freq PRN Reason Stop Dose Admin Acetaminophen 650 mg 09/20/24 21:49 09/25/24 07:01 Acetaminophen 325 Mg Tablet PO 650 mg Q6H PRN Administration Mild Pain (1-3) or Fever Ferrous Sulfate 325 mg 09/21/24 09:00 09/24/24 08:07 Ferrous Sulfate [address] BY MOUTH 325 mg DAILY [facility]ARTE Administration Methylprednisolone Sodium 104 mls @ 200 mls/hr 09/21/24 12:00 09/25/24 06:46 Succinate 250 mg/ Dextrose IVPB 09/26/24 11:59 200 mls/hr Q6HR [facility]ARTE Administration Prednisone 80 mg 09/26/24 08:00 Prednisone 20 Mg Tablet PO 10/05/24 07:59 DAILY@0800 [facility] Taper Prednisone 30 mg 10/05/24 08:00 Prednisone 10 Mg Tablet PO 10/13/24 07:59 DAILY@0800 [facility] Taper Prednisone 5 mg 10/13/24 08:00 Prednisone 5 Mg Tablet PO 10/14/24 08:01 DAILY@0800 [facility] Radiology Results: ITS Impressions Head CT 09/20/24 15:10 IMPRESSION: No acute intracranial process. Chest X-Ray 09/20/24 15:12 IMPRESSION: No acute cardiopulmonary process. Cervical Spine MRI 09/21/24 09:26 IMPRESSION: 1. Increase in number and size of multiple T2 hyperintense lesions, coupled which appear mildly expansile and 1 at the level of C4 with mild enhancement consistent with progression and active flare of known multiple sclerosis. 2. Mild cervical spondylosis. Lumbar Spine MRI 09/21/24 10:22 IMPRESSION: 1. Moderate lower lumbar spondylosis. Thoracic Spine MRI 09/21/24 10:36 IMPRESSION: 1. Widespread lesions in the thoracic spinal cord, consistent with multiple sclerosis. Brain MRI 09/22/24 09:30 IMPRESSION: 1. Worsened white matter lesions in the brain, consistent with multiple sclerosis. Labs Labs: Laboratory Results - last 24 hr 09/20/24 15:11 Vitamin B6 29.5 H Quality VTE Prophylaxis VTE prophylaxis: mechanical ordered -Patient's previous records reviewed on admission -ER notes reviewed in detail on admission -discussed all findings and current treatment plan with patient/Family/POA -Consultations reviewed for recommendations -Patient's disposition for safe discharge discussed with case loader operator Dictation performed by [employer] direct speech recognition software, therefore manager database variants and typographical errors may occur. Hospitalist MIPS Advance Care Plan I have confirmed that the patient's Advanced Care Plan is present, code status is documented, or surrogate decision maker is listed in patient medical record.: Yes Medication Reconciliation I have utilized all available resources to obtain, update and review the patients current medications (includes all prescriptions, OTC, herbals, cannabis, and nutritional supplements).: Yes The patient is not eligible for med reconciliation; the patient is in a emergent medical situation where delaying treatment would jeopardize the patients health.: No
[2024-09-25] MEDS: FERROUS SULFATE 325 MG TABLET DR BY MOUTH (09:30)
--- NOTE | 2024-09-25 12:48 | PCNFU ---
Nutrition Follow-Up Complete: Unintentional weight loss related to reduced appetite and intake as evidenced by pt report. PO intake greater than 50% of meals and supplements - Progressing with intakes 50-100% Goal: Pt current nutrition is Heart healthy diet with Ensure Enlive BID for additional 350 kcal and 20 g protein each. Nutrition recommendation: No new nutrition recommendations. Continue current nutrition care plan and orders. Agree with orders Last recorded weight is 51.88 kg. Bowel Motility: Last BM 09/20/24 Labs Reviewed: No new labs Meds Noted: Prednisone, iron Skin: No skin issues Additional Notes: Intakes are better. Likely to discharge home soon Monitor intake, wt, labs. Follow up in 5 days.
--- NOTE | 2024-09-25 12:50 | PC.NURSE ---
IV infiltrated. Called the hospitalist and pt is not going home today so another IV needs to be started to finish IV steriods.
[2024-09-25 14:05] VITALS: BP 134/76; PULSE 57; RESP 16; TEMP 36.6; O2SAT 100
[2024-09-25 15:41] VITALS: BP 167/87; PULSE 62; RESP 16; TEMP 36.7; O2SAT 98
--- NOTE | 2024-09-25 16:08 | PC.NURSE ---
8270. Met with patient to assess and discuss needs related to feeding. Mom reported to the primary RN that she wanted to try to BF. She had been unsure what she wanted after delivery and ended up giving a bottle for babies first feeding. folder given to mom and we discussed some of the handouts, making sure to go over feeding cues . Mom was on her phone during the teaching. Encouraged mother to breastfeed 8-12 times in 24 hours (approximately every 2-3 hours), watching for early feeding cues. If infant is sleepy, unwrap and place baby skin to skin. Discussed signs that infant is effectively , i.e. sufficient voids and stools, jaundice within normal limits, <10% weight loss from . Mother educated on milk production, supply and demand, and expectations for in the immediate period. was able to lacth to the R breast in cross cradle position, mom required maximum assistance in establishing latch. maintained an appropriate. Mother declines nipple pain/discomfort throughout feeding. Encouraged mother to keep awake and nursing at the breast for 15 minutes. Mother taught to listen for swallowing during feedings. Reviewed using the blue feeding sheet to record time and duration of feeding. Encouraged feeding on demand and feeding durations of 15 minutes or greater. Discussed breast/nipple care with good hand hygiene, signs of a correct latch, listening for infant swallows and documenting feedings on the feeding sheet. Mother instructed to call for assistance if infant will not feed every 3 hours, if there is discomfort with , or if mother has any other questions or concerns. resources provided including the Mom and Baby Guide and name/number on communication board. Mother verbalized understanding. Updated patient?s primary RN with education provided.?
[2024-09-25 20:00] VITALS: BP 129/75; PULSE 67; RESP 18; TEMP 37.2; O2SAT 100
[2024-09-26 04:00] VITALS: BP 150/80; PULSE 74; RESP 16; TEMP 36.8; O2SAT 100
[2024-09-26] MEDS: ACETAMINOPHEN 325 MG TABLET 650 MG PO (05:39)
[2024-09-26 07:20] VITALS: BP 140/89; PULSE 67; RESP 16; TEMP 36.8; O2SAT 99
--- NOTE | 2024-09-26 08:14 | P.DS_ITS ---
DS: Admitting Diagnosis Discharge Date 09/26/2024 Admitting Diagnosis Multiple sclerosis flare-up/paraesthesias DS: Discharge Diagnosis Discharge Diagnosis (1) Multiple sclerosis: Code(s): G35 - Multiple sclerosis Status: Acute (2) Paresthesias: Code(s): R20.2 - Paresthesia of skin Status: Acute (3) Tobacco dependence: Code(s): F17.200 - Nicotine dependence, unspecified, uncomplicated Status: Acute DS: Summary Hospital Course Reason for hospitalization: Multiple sclerosis flare-up/paraesthesias Hospital Course: patient was a 44-year-old female who presented to the emergency department with suspected MS flareup. Patient reports she does have chronic fatigue and intermittent symptoms with weakness and occasional paresthesias however over the last few weeks she developed increasing symptoms around her trunk and both legs she did deny any difficulty with urination or bowel dysfunction. Patient was admitted to medical unit for further evaluation and a consult to Neurology. MRI was completed of the brain, cervical and thoracic which showed an increase in the number and size of hyperintense lesion and mild enhancement consistent the progression active flare of the known multiple sclerosis lesion. patient cont inued hospitalization with recommendation from Neurology for a pulse therapy of IV Solu-Medrol x5 days and physical therapy. Patient reported some improvement and felt back to baseline she was ambulatory on with no further complaints was discharged to home on a taper dose oral steroids and plan to follow-up with Neurology outpatient in 4-6 weeks. It was recommended outpatient that she start modifying therapy such as Kesimpta or Ocrevus which will be discussed with her neurologist. Status at Discharge Functional status at discharge: independent ambulation Overall status at discharge: patient is back to baseline Time Spent with Patient Time attestation: Total time spent providing and/or coordinating discharge services: Time spent: Less than 30 minutes Exam Narrative: General: Well-developed, thin female on bedrest, and in no acute distress. HEENT: PERRL, EOMI. Sclera anicteric. Oral mucosa moist. Neck: Supple. Respiratory: Lungs are clear to auscultation bilaterally. Cardiovascular: Regular rate and rhythm with S1-S2. Gastrointestinal: Abdomen is soft, nontender, and nondistended with positive bowel sounds. Skin: Warm and dry. No rash or lesions noted. Extremities: No cyanosis, clubbing, or edema. Radial and pedal pulses intact. Neurological: Alert and well oriented. Cranial nerves 2-12 are grossly intact. Speech is clear. No facial asymmetry. Hand coke wheeler and foot pushes are equal bilaterally. Psychiatric: Cooperative with appropriate mood DS: Data Imaging Radiologist's impression: Radiology Results: ITS Impressions Head CT 09/20/24 15:10 IMPRESSION: No acute intracranial process. Chest X-Ray 09/20/24 15:12 IMPRESSION: No acute cardiopulmonary process. Cervical Spine MRI 09/21/24 09:26 IMPRESSION: 1. Increase in number and size of multiple T2 hyperintense lesions, coupled which appear mildly expansile and 1 at the level of C4 with mild enhancement consistent with progression and active flare of known multiple sclerosis. 2. Mild cervical spondylosis. Lumbar Spine MRI 09/21/24 10:22 IMPRESSION: 1. Moderate lower lumbar spondylosis. Thoracic Spine MRI 09/21/24 10:36 IMPRESSION: 1. Widespread lesions in the thoracic spinal cord, consistent with multiple sclerosis. Brain MRI 09/22/24 09:30 IMPRESSION: 1. Worsened white matter lesions in the brain, consistent with multiple sclerosis. Discharge Plan Discharge Attending physician on discharge: Sonny Alvarez Consulting providers: Alonso Mackenzie Discharging Clinician: Ayesha Hand Anticipated Discharge Date/Time: 09/26/24 07:59 Patient Disposition: Home, Self-Care Activity: may shower, unlimited and as tolerated Diet: as tolerated and regular Discharge Instructions: You are being discharged home after treatment for a multiple sclerosis flare-up he had been seen by the neurologist following MRI of the brain, cervical and thoracic spine which did show increasing number of size of hyperintense lesion and mild enhancement consistent the progression active flare. he does recommend a more aggressive form of treatment outpatient to include modifying therapy such as Kesimpta or Ocrevus. during your admission you were treated with a pulse therapy of IV Solu-Medrol and physical therapy. I have prescribed per Neurology a steroid dose pack please take as prescribed even if feeling better and please call for follow-up with Neurology in 4-6 weeks How can you care for yourself at home? ? Keep track of any new symptoms or changes in your symptoms. ? Rest until you feel better. ? Be safe with medicines. Take your medicines exactly as prescribed. Call your doctor if you think you are having a problem with your medicine. ? Do not drive after taking a prescription pain medicine. ? Ensure to follow-up with primary care physician as indicated and provide updated medication list provided to you at discharge. When should you call for help? Call 911 anytime you think you may need emergency care. For example, call if: ? You passed out (lost consciousness). Call your doctor now or seek immediate medical care if: ? You have new symptoms like fever, difficulty breathing, Chest pain, vomiting, or rash. ? You have new or different pain. ? You are confused and are having trouble thinking clearly. ? Your symptoms are getting worse. Watch closely for changes in your health, and be sure to contact your doctor if: ? You do not get better as expected. Patient Instructions: Antibiotic Form, Multiple Sclerosis (DC), Pain Management (DC) Patient Language: Palauan Stand Alone Forms: General Discharge Information Follow-up/Referrals: Caden Cuba MD [Primary Care Provider] - 3 Weeks Alonso Mackenzie MD [Physician] - 4 Weeks (Call to schedule appointment) Discharge Medications: New prednisone 10 mg Tablet 30 mg PO DAILY@0800 Qty: 17 0RF prednisone 20 mg Tablet 80 mg PO DAILY@0800 Qty: 27 0RF prednisone 5 mg Tablet 5 mg PO DAILY@0800 Qty: 2 0RF Rx Instructions: Start 10/14 through 10/15 Continued ferrous sulfate [FeroSul] 325 mg (65 mg iron) tablet 325 mg PO DAILY ibuprofen 400 mg Tablet 400 mg PO Q6H PRN (Reason: Pain) Date of admission: 09/21/24 16:16 Primary Care Provider: Caden Cuba Admitting Provider: Александр Simpson Attending physician on admission: Adin Vo Condition: Stable Quality VTE Prophylaxis VTE prophylaxis: mechanical ordered -Patient's previous records reviewed on admission -ER notes reviewed in detail on admission -discussed all findings and current treatment plan with patient/Family/POA -Consultations reviewed for recommendations -Patient's disposition for safe discharge discussed with dependency case manager Dictation performed by [employer] direct speech recognition software, therefore lead military analyst variants and typographical errors may occur. Hospitalist MIPS Heart Failure (Exclusion) Patient has history of Heart Transplant or Left Ventricular Assistive Device?: No IF YES, STOP HERE Heart Failure (Qualifier) Patient has current or prior documentation of LVEF less than or equal to 40%, or mod/servere depressed LVSF?: No IF NO, STOP HERE
[2024-09-26] MEDS: FERROUS SULFATE 325 MG TABLET DR BY MOUTH (10:52)
== END 2024-09-26 11:22 | disposition home or self-care (01) | DRG 43 ==
LOC: ANHED 17:25 → ANH3MEDSUR 18:46 → ANHOB2 09-23 14:33
PROVIDERS: Physician Assistant; Psychiatry & Neurology Neurology; Admitting Provider Internal Medicine; Emergency Provider Physician Assistant; PCP Family Medicine; Visit Provider Nurse Practitioner Family
DX: G35 Multiple sclerosis (principal); R20.2 Paresthesia of skin; F17.210 Nicotine dependence, cigarettes, uncomplicated
CPT/HCPCS: 36415; 70450; 70553; 71045; 72156; 72157; 72158; 80048; 80053; 80061; 81001; 82306; 82607; 83735; 84207; 84439; 84443; 84480; 84484; 85025; 85610; 85730; 87086; 87088; 93005; 96365; 99285; A9270; A9577; G0378; G0379; J2919

== ENCOUNTER 2024-10-01 13:37 | Outpatient (CLI) | payer OTHER, SELFPAY ==
[2024-10-01 13:56] LABS: Basophils Percent Auto 0.2 % (0.2-1.2); Hemoglobin 12.8 g/dL (12.0-15.0); Immature Granulocyte Absolute 0.15 K/mm3 (0.00-0.031); Immature Granulocyte Percent A 0.9 % (0-0.5); Lymphocytes Absolute Auto 0.67 K/mm3 (0.9-3.2); Lymphocytes Percent Auto 3.8 % (18.3-44.2); Mean Corpuscular Hemoglobin 28.3 pg (26-34); Mean Corpuscular Volume 88.5 fl (80-100); Mean Platelet Volume 9.6 fl (7.4-10.4); Monocytes Absolute Auto 0.2 K/mm3 (0.1-0.6); Monocytes Percent Auto 1.1 % (2.6-8.5); Neutrophils Absolute Auto 16.6 K/mm3 (1.3-6.7); Platelet Count Result 477 k/mm3 (150-375); Red Blood Count 4.52 M/mm3 (4.2-5.4); Red Cell Distribution Width 19.5 % (11.5-14.5); White Blood Count 17.6 K/mm3 (4.5-10.0)
[2024-10-01 16:23] LABS: Iron 88 ug/dL (37-170)
[2024-10-01 16:26] LABS: Alanine Aminotransferase 20 U/L (6-35); Albumin Level 4.4 g/dL (3.5-5.1); Alkaline Phosphatase 65 U/L (38-126); Anion Gap 6 mmol/L (4-12); Aspartate Amino Transferase 34 U/L (14-36); Bilirubin,Total 0.4 mg/dL (0.2-1.3); Blood Urea Nitrogen 29 mg/dL (7-17); Calcium 9.7 mg/dL (8.4-10.2); Carbon Dioxide 29 mmol/L (22-30); Chloride 101 mmol/L (98-107); Estimated Glomerular Filt Rate > 60; Glucose 129 mg/dL (65-110); Potassium 4.4 mmol/L (3.4-5.0); Sodium 136 mmol/L (137-145)
[2024-10-01 16:33] LABS: Percent Iron Saturation 20 % (20-50)
[2024-10-01 17:46] LABS: Folic Acid > 20.0 ng/mL (2.76->20)
[2024-10-07 14:09] LABS: Soluble Transferrin Receptor 2.41 mg/L (0.76-1.76)
== END 2024-10-01 13:38 | disposition home or self-care (01) ==
PROVIDERS: PCP Family Medicine; Visit Provider Internal Medicine Hematology & Oncology
DX: D64.9 Anemia, unspecified (principal)
CPT/HCPCS: 36415; 80053; 82607; 82728; 82746; 83540; 83550; 84238; 85025

== ENCOUNTER 2024-10-19 15:38 | Outpatient (CLI) | payer OTHER, SELFPAY ==
[2024-10-20 00:26] LABS: Hepatitis B Surface Antigen Negative (Negative)
[2024-10-20 00:44] LABS: Hepatitis B Surface Anti Res Negative
[2024-10-20 07:13] LABS: Hepatitis B Core Ab Total NON-REACTIVE (NON-REACTIVE)
[2024-10-21 03:39] LABS: Protein, Total 6.5 g/dL (6.1-8.1)
[2024-10-22 22:13] LABS: Immunofixation, Serum Normal pattern.
[2024-10-23 15:23] LABS: JC Polyoma Virus DNA, QL NOT DETECTED; JC Polyoma Virus Source PLASMA
== END 2024-10-19 15:39 | disposition home or self-care (01) ==
LOC: ANHLAB 15:39
PROVIDERS: PCP Family Medicine; Visit Provider Psychiatry & Neurology Neurology
DX: G35 Multiple sclerosis (principal)
CPT/HCPCS: 36415; 84155; 84165; 86334; 86704; 86706; 87340; 87798

== ENCOUNTER 2024-11-11 00:33 | Day surgery (SDC) | payer OTHER, SELFPAY ==
[2024-10-27 10:30] VITALS: BMI 17.8
[2024-11-11 06:52] VITALS: BP 136/81; PULSE 120; RESP 18; TEMP 36; O2SAT 100
[2024-11-11 06:59] LABS: BEDSIDEPREGUCG Negative (Negative)
[2024-11-11] MEDS: LACTATED RINGERS 1,000 ML 150 ML IV CONT (07:08)
--- NOTE | 2024-11-11 07:09 | SUR.PREOP ---
DR RHODES NOTIFIED OF PT'S HEART RATE IN THE 120s, PT STATES HR RUNS HIGH IN THE MORNINGS, DR RHODES TO SEE PT, NO NEW ORDERS RECEIVED. PT COULD NOT VOID FOR URINE TEST, PT HAS HAD A TUBAL, DR RHODES NOTIFIED, ORDER RECEIVED TO DISCONTINUE TEST ORDER.
--- NOTE | 2024-11-11 07:10 | WPDANESEPPF ---
Anes - Initial Pre Proc Eval Procedure: Operation Date: 11/11/24 08:00 Proposed Procedures p Colonoscopy - Haroldo Hopkins MD Date/Time: 11/11/24 07:10 Surgeon: Haroldo Hopkins MD Pre Op Diagnosis: Anemia Patient Data Age: 44 Gender: F Height: 1.68 m Weight: 51.1 kg Last Vital Signs Temp 36.0 C L 11/11/24 06:52 Pulse 120 H 11/11/24 06:52 Resp 18 11/11/24 06:52 BP 136/81 11/11/24 06:52 Pulse Ox 100 11/11/24 06:52 O2 Del Method Room Air 11/11/24 06:52 Allergies Allergy/AdvReac Type Severity Reaction Status Date / Time No Known Allergies Allergy Unknown Verified 11/11/24 06:51 Home Medications ?Medication ?Instructions ?Recorded ?Confirmed ?Type ferrous sulfate 325 mg (65 mg 325 mg PO DAILY 09/20/24 11/11/24 History iron) tablet (FeroSul) ibuprofen 400 mg tablet 400 mg PO Q6H PRN Pain 09/20/24 10/27/24 History amitriptyline 25 mg tablet 25 mg PO QHS #90 tabs 10/07/24 11/11/24 Rx ofatumumab 20 mg/0.4 mL 20 mg (0.4 mL) subcut MONTHLY #0.4 10/08/24 10/27/24 Rx subcutaneous pen injector mL (Kesimpta Pen) ofatumumab 20 mg/0.4 mL 20 mg (0.4 mL) subcut WEEKLY 3 10/08/24 10/27/24 Rx subcutaneous pen injector weeks #1.2 mL (Kesimpta Pen) Laboratory Tests 11/11/24 06:52 POC Urine HCG, Qual Negative (Negative) Patient hx anesthesia problems: none Family hx anesthesia problems: none Results Review: All pre-operative results and documents have been reviewed as part of the pre-operative evaluation. [facility] Past Medical History Medical History Anxiety Abnormal protein electrophoresis Tobacco dependence Multiple sclerosis Surgical History Surgical History (Updated 11/11/24 @ 07:10 by José Miguel Rose MD) H/O colonoscopy History of tubal ligation Family History Family History Other Unknown family medical history Social History Social History Social History: Surrogate medical decision maker: Arnav Ray, significant other. Code status: Full code. Smoking packs per day: 1 Smoking cigarettes per day: 20.0 Years smoked: 25 Smoking pack-years: 25.00 Smoking status: Current every day smoker Tobacco type: cigarettes Alcohol intake: current Drinks per week: 2 Alcohol use details: ocassional Substance use: never Substance use type: does not use Do You Feel Safe in your Home?: Yes Lack of Transportation: No Lack of Food: Never True Current Housing: I Have Housing Concerned About Future Housing: No Difficulty Paying Gas/Electric Bills: No Difficulty Paying for Meds: No Currently Unemployed: No Education: High School Diploma/GED Difficulty w/ Childcare or Family Care: No Spiritual care concerns: No Anes - Eval Final PreProcedure Day of Procedure 11/11/24 07:10 Patient weight: thin Heart: regular rate and rhythm Lungs: clear to auscultation Airway: Mallampati scale class II Neurological: alert and oriented Last oral intake: >/= 8 hours ASA classification: III Emergent: no Anesthetic plan: proceed Anesthesia type and monitoring: general GIVS and standard monitoring Results Review: All pre-operative results and documents have been reviewed as part of the pre-operative evaluation. Informed Consent: The patient's anesthetic plan and its attendant risks and benefits were discussed with the patient/family/POA. Questions were solicited and answers provided to the satisfaction of the patient/family/POA.
--- NOTE | 2024-11-11 08:12 | PM.IMHP ---
H&P: HPI History of Present Illness Date/Time: 11/11/24 08:12 Chief Complaint: History of polyps Narrative: The patient has a history of colonic polyps, the last colonoscopy was 4 years ago Review of Systems Review of Systems: All systems reviewed & are unremarkable except as noted in HPI and below PMFSH Past Medical History Medical History (Updated 11/11/24 @ 08:12 by Haroldo Hopkins MD) Anxiety Abnormal protein electrophoresis Tobacco dependence Multiple sclerosis Surgical History Surgical History (Updated 11/11/24 @ 07:10 by José Miguel Rose MD) H/O colonoscopy History of tubal ligation Family History Family History Other Unknown family medical history Social History Social History Social History: Surrogate medical decision maker: Arnav Ray, significant other. Code status: Full code. Smoking packs per day: 1 Smoking cigarettes per day: 20.0 Years smoked: 25 Smoking pack-years: 25.00 Smoking status: Current every day smoker Tobacco type: cigarettes Alcohol intake: current Drinks per week: 2 Alcohol use details: ocassional Substance use: never Substance use type: does not use Do You Feel Safe in your Home?: Yes Lack of Transportation: No Lack of Food: Never True Current Housing: I Have Housing Concerned About Future Housing: No Difficulty Paying Gas/Electric Bills: No Difficulty Paying for Meds: No Currently Unemployed: No Education: High School Diploma/GED Difficulty w/ Childcare or Family Care: No Spiritual care concerns: No Meds Home Medications and Allergies Home Medications ?Medication ?Instructions ?Recorded ?Confirmed ?Type ferrous sulfate 325 mg (65 mg 325 mg PO DAILY 09/20/24 11/11/24 History iron) tablet (FeroSul) ibuprofen 400 mg tablet 400 mg PO Q6H PRN Pain 09/20/24 10/27/24 History amitriptyline 25 mg tablet 25 mg PO QHS #90 tabs 10/07/24 11/11/24 Rx ofatumumab 20 mg/0.4 mL 20 mg (0.4 mL) subcut MONTHLY #0.4 10/08/24 10/27/24 Rx subcutaneous pen injector mL (Kesimpta Pen) ofatumumab 20 mg/0.4 mL 20 mg (0.4 mL) subcut WEEKLY 3 10/08/24 10/27/24 Rx subcutaneous pen injector weeks #1.2 mL (Kesimpta Pen) Allergies Allergy/AdvReac Type Severity Reaction Status Date / Time No Known Allergies Allergy Unknown Verified 11/11/24 06:51 Vital Signs Vital Signs - 24 hr 11/11/24 06:52 Temperature 96.8 F L Pulse Rate 120 H Respiratory Rate 18 Blood Pressure 136/81 Pulse Oximetry 100 Oxygen Delivery Room Air Exam Const: General: cooperative and healthy appearing Resp: Effort & Inspection: normal respiratory effort and able to speak in complete sentences Auscultation: clear to auscultation bilaterally Cardio: Rate: regular rate Rhythm: regular rhythm GI: Inspection: normal to inspection GI Palp: No No hepatosplenomegaly present Auscultation: normal bowel sounds Rectal Exam: deferred Skin: General skin exam: normal color Psych: Appearance: grossly normal Mental Status: mental status grossly normal Assessment and Plan Assessment and plan (1) History of colonic polyps: Code(s): Z86.0100 - Personal history of colon polyps, unspecified Status: Acute Assessment and Plan: The patient is deemed a good candidate for the procedure. Consent signed. Will proceed.
[2024-11-11 08:34] VITALS: BP 81/47; PULSE 80; RESP 17; O2SAT 100
[2024-11-11 08:44] VITALS: BP 91/55; PULSE 80; RESP 20; O2SAT 100
[2024-11-11 08:54] VITALS: BP 123/85; PULSE 88; RESP 20; O2SAT 100
--- OUTSIDE RECORDS SUMMARY | 2024-11-12 20:52 | XMS_ITS | Clinical Summary ---
Author Organization [facility] Address [address] [place] [address]. [place] [address] Care Team Providers Care Blanket Maker Name Role Phone Matilda Campos MD Primary Care Provider Social History Tobacco Use Types Packs/Day Years Used Date Smoking Tobacco: Never Assessed Comments Unknown Sex and Gender Information Value Date Recorded Sex Assigned at Not on file Legal Sex Female 4:14 PM CDT Gender Identity Not on file Sexual Orientation Not on file Plan of Treatment Health Maintenance Due Date Last Done Comments Cervical Cancer Screening Pa p Smear (Age 30 to 64) Every 3 Years 1980 Annual Physical 01/21/1983 Hepatitis C 01/21/1998 DTaP, Tdap and Td Vaccines ( 1 - Tdap) 01/21/1999 Hepatitis B Vaccines (1 of 3 - 19+ 3-dose series) 01/21/1999 Cervical Cancer Screening Pa p with HPV Testing (Age 30 to 64) Every 5 Years 01/21/2010 Cervical Cancer Screening with HPV 01/21/2010 Mammogram Screening 2020 COVID-19 Vaccine (2023-2 5 season) 2024 Influenza Adult (#1) 2024 HPV Vaccines Aged Out No longer eligi ble based on patient's age to complete this topic Meningococcal Vaccine Aged Out No dahlia sara eligible based on patient's age to complete this topic Pneumococcal Vaccine: Pediat rics (0 to 5 Years) and At-Risk Patients (6 to 64 Years) Aged Out No longer eligible b ased on patient's age to complete this topic RSV Immunizations Under 20 Months Aged Out No longer eligible based on patient's age to complete this topic Insurance [employer] Care Teams Blanket Maker Relationship Specialty [place] [id number] [phone] PCP - General INTERNAL MEDICINE 05/08/24
--- OUTSIDE RECORDS SUMMARY | 2024-11-12 20:52 | XMS_ITS | Patient Health Summary ---
Author Organization [facility] Address [address] [place] [address] Care Team Providers Care Kosher Butcher Name Role Phone Caden Cuba MD Primary Care Provider [phone] Note from [facility] [place] [facility],non-owned Affiliates and Associated Physician Practices is amultiple site organization consisting of ambulatory clinics and hospital sitesin [place], [place], [place] and [place]. This disclosure is being madepursuant to the Care Everywhere program and may not contain all information available regarding this patient. Last updated 18.[facility] Social History Tobacco Use Types Packs/Day Years Used Date Smoking Tobacco: Every Day Smokeless Tobacco: Never Alcohol Use Standard Drinks/Week Comments Not Asked 0 (1 standard drink = 0.6 oz pur e alcohol) Sex and Gender Information Value Date Recorded Sex Assigned at Not on file Gender Identity Not on file Sexual Orientation Not on file Last Filed Vital Signs Vital Sign Reading Time Taken Comments Blood Pressure 122/88 06/15/2015 2:24 PM CDT Pulse 121 06/15/2015 2:24 PM CDT Temperature - - Respiratory Rate - - Oxygen Saturation 100% 06/15/2015 2:24 PM CDT Inhaled Oxygen Concentration - - Weight 51.7 kg (114 lb) 07/04/2015 1:00 PM CDT Height 167.6 cm (5' 6 ) 07/04/2015 1:00 PM CDT Body Mass Index 18.4 07/04/2015 1:00 PM CDT Procedures * EVENT MONITOR(Performed 07/29/2015) * ECHO 2D ONLY WO COLOR OR DOPPLER(Performed 07/08/2015) * EKG 12-LEAD(Performed 06/15/2015) * CULTURE URINE(Performed 12/11/2013) Results * EVENT MONITOR (07/29/2015 8:45 AM CDT) Narrative [facility] - 07/29/2015 8:45 AM CDT Cory Magallaens underwent cardiac monitoring with a 30 day event monitor. ??Results are as follows: Quality of Tracings: ??Fair, some baseline artifact present. Rhythm: ??Sinus. Ectopy: ??None. Symptoms: ??Lightheaded, dizzy (multiple transmissions), which correlated with sinus rhythm, rates 75-163 bpm. ??Heart racing (multiple transmissions), which correlated with sinus rhythm, rates 75-163 bpm. Please feel free to contact me with any questions, thank you. Procedure Note Provider, MD Sharon - 03/28/2018 Cory Magallanes underwent cardiac monitoring with a 30 day event monitor.Results are as follows: Quality of Tracings: Fair, some baseline artifact present. Rhythm: Sinus. Ectopy: None. Symptoms: Lightheaded, dizzy (multiple transmissions), which correlatedwith sinus rhythm, rates 75-163 bpm. Heart racing (multipletransmissions), which correlated with sinus rhythm, rates 75-163 bpm. Please feel free to contact me with any questions, thank you. London Rogers CD CARDIAC SERVICES ORD ERABLES [facility] * ECHO 2D ONLY WO COLOR OR DOPPLER (07/08/2015 1:57 PM CDT) Anatomical Region Laterality Modality Other Narrative 07/08/2015 1:57 PM CDT NAME: Cory Magallanes : 1980 AGE: 35 y.o. SEX: female Referring Physician: Carlos Farfan MD [address] [facility] [address] [place] [address] Ordering Physician: ?? Primary Care Physician: Caden Cuba Date of Test: 07/04/15 TAPE#: ?? Amortization Schedule Clerk: MARSHA Height: 5' 6 (167.6 cm) Weight: 114 lb (51.71 kg) BSA: ?? Introduction: Cory Magallanes is a 35 y.o. female presenting with chest pain. Indication: chest pain Chamber Measurements LV Internal Dimension Systole (cm): 4.1 cm LV Internal Dimension Diastole (cm): 5.2 cm Septal Thickness (cm): 1.1 cm Posterior Wall Thickness (cm): 1.1 cm LV Systolic Function: Normal Aortic Root Measurement (cm): 3.2 cm Left Atrium Measurement (cm): 3.8 cm Right Atrial Size: Normal RV Size: Normal Global RV function: Normal Aortic Valve AV Max (m/s): 1.6 m/s LVOT Diameter (cm): 2.1 cm LVOT max (m/s): 0.8 m/s Normal Aortic Valve Velocities: Yes Mitral Valve Mitral Valve Velocities: ? E (m/s): 0.8 m/s ? A (m/s): 0.6 m/s ? Tissue Doppler Velocities: ? Diastolic Function: Normal Tricuspid Valve Max Tricuspid Valve Velocity (m/s): 0.7 m/s Normal Tricuspid Valve Velocities: Yes Pulmonic Valve Max Pulmonic Valve Velocity (m/s): 0.9 m/s Normal Pulmonic Valve Velocities: Yes OVERALL INTERPRETATION: - Technically Good echocardiogram. - Normal LV size and systolic function. Ejection fraction = 55%. - Normal RV size and systolic function. - Normal left atrium. - Normal right atrium. - Normal aortic valve structure and velocities. ??No aortic regurgitation. - Normal mitral valve structure and velocities. Mild mitral regurgitation. - Normal LV diastolic function. - Normal tricuspid valve structure and velocities. ?? Mild tricuspid regurgitation. - Calculated right ventricular systolic pressure of <35 mmHg which is normal. - Normal pulmonary valve structure and velocities. ??No pulmonic regurgitation. Supervising Physician: Js Balderas M.D. Reading Physician: Vicky Avila MD Procedure Note Provider, MD Sharon - 03/28/2018 NAME: Cory Magallanes : 1980 AGE: 35 y.o. SEX: female Referring Physician: Carlos Farfan MD [address] [facility] [address] [place] [address] Ordering Physician: Primary Care Physician: Caden Cuba Date of Test: 07/04/15 TAPE#: Amortization Schedule Clerk: MARSHA Height: 5' 6 (167.6 cm) Weight: 114 lb (51.71 kg) BSA: Introduction: Cory Magallanes is a 35 y.o. female presenting with chestpain. Indication: chest pain Chamber Measurements LV Internal Dimension Systole (cm): 4.1 cm LV Internal Dimension Diastole (cm): 5.2 cm Septal Thickness (cm): 1.1 cm Posterior Wall Thickness (cm): 1.1 cm LV Systolic Function: Normal Aortic Root Measurement (cm): 3.2 cm Left Atrium Measurement (cm): 3.8 cm Right Atrial Size: Normal RV Size: Normal Global RV function: Normal Aortic Valve AV Max (m/s): 1.6 m/s LVOT Diameter (cm): 2.1 cm LVOT max (m/s): 0.8 m/s Normal Aortic Valve Velocities: Yes Mitral Valve Mitral Valve Velocities: E (m/s): 0.8 m/s A (m/s): 0.6 m/s Tissue Doppler Velocities: Diastolic Function: Normal Tricuspid Valve Max Tricuspid Valve Velocity (m/s): 0.7 m/s Normal Tricuspid ValveVelocities: Yes Pulmonic Valve Max Pulmonic Valve Velocity (m/s): 0.9 m/s Normal Pulmonic ValveVelocities: Yes OVERALL INTERPRETATION: - Technically Good echocardiogram. - Normal LV size and systolic function. Ejection fraction = 55%. - Normal RV size and systolic function. - Normal left atrium. - Normal right atrium. - Normal aortic valve structure and velocities. No aortic regurgitation. - Normal mitral valve structure and velocities. Mild mitral regurgitation. - Normal LV diastolic function. - Normal tricuspid valve structure and velocities. Mild tricuspidregurgitation. - Calculated right ventricular systolic pressure of <35 mmHg which isnormal. - Normal pulmonary valve structure and velocities. No pulmonicregurgitation. Supervising Physician: Js Balderas M.D. Reading Physician: Vicky Avila MD Carlos Farfan MD ECHOCARDIOGRAPH Y RADIANT * EKG 12-LEAD (06/15/2015 2:27 PM CDT) Carlos Farfan MD ECG ORDERABLES [facility] * CULTURE URINE (12/11/2013 9:00 AM LINE RUNNER) Culture Urine NO GROWTH OF >100 CFU/ML AFTER 48 HOURS. [facility] Urine specimen (specimen) 12/11/2013 9:00 AM LINE RUNNER 12/11/2013 2:19 PM LINE RUNNER Frankei Gilmore MD LAB - MICROBIOLOGY O RDERABLES [address] [phone] Care Teams Kosher Butcher Relationship Specialty Start Date End Date Caden Cuba MD [address] [place] [address] PCP - General 04/21/15
--- OUTSIDE RECORDS SUMMARY | 2024-11-12 20:52 | XMS_ITS | Clinical Summary ---
Author Organization [facility] Address [address] [place] [address] Care Team Providers Care Environmental Protection Forester Name Role Phone Caden Cuba MD Primary Care Provider Source Comments [facility],non-owned Affiliates and Associated Physician Practices is amultiple site organization consisting of ambulatory clinics and hospital sitesin [place], [place], [place] and [place]. This disclosure is being madepursuant to the Care Everywhere program and may not contain all information available regarding this patient. Last updated 18.[facility] Encounters Date Type Department Care Team Description 09/21/2024 Transcribe Orders [facility] - Centralized Scheduling [facility] [place] [id number] Ja Wynne, CITY DRIVER-CLOSET ORGANIZER Multiple sclerosis (HCC) from Last 3 Months Social History Tobacco Use Types Packs/Day Years [...] Mass Index 18.4 07/04/2015 1:00 PM CDT Plan of Treatment Health Maintenance Due Date Last Done Comments LIPID TESTING 1980 MAMMOGRAM 1980 PAP SMEAR 1980 HIV SCREENING 01/21/1995 HEPATITIS C SCREENING 01/17/1998 DTAP/TDAP/TD VACCINES (1 - Tdap) 01/21/1999 HEPATITIS B VACCINE (1 of 3 - 19+ 3-dose series) 01/21/1999 PNEUMOCOCCAL VACCINE (1 of 2 - PCV) 01/21/1999 COVID-19 VACCINE (1 - 2023-2 5 season) 2024 INFLUENZA VACCINE (#1) 2024 DEPRESSION SCREENING 10/21/2024 ZOSTER VACCINE (1 of 2) 01/21/2030 HIB VACCINE Aged Out No longer eligi ble based on patient's age to complete this topic HPV VACCINE Aged Out No longer eligi ble based on patient's age to complete this topic MENINGOCOCCAL (Group B) VACCINE Aged Out No longer eligible based on patient's age to complete this topic MENINGOCOCCAL VACCINE Aged Out No dahlia sara eligible based on patient's age to complete this topic Care Teams Environmental Protection Forester Relationship Specialty Start Date End Date Caden Cuba MD [address] [place] [address] PCP - General 04/21/15
--- OUTSIDE RECORDS SUMMARY | 2024-11-12 20:52 | XMS_ITS | Continuity of Care Document ---
Author Organization [facility] Address [address] [facility] [place] [address] [place] [address] Phone Care Team Providers Care Manager Of Application Development Name Role Phone Frankie Gilmore MD Unavailable Unavailable Allergies, Adverse Reactions, Alerts Substance Reaction Status Criticality No Known Allergies Active No Inform ation Medications Medication Instructions Dosage Effective Dates (start - stop) Status Comments losartan 100 mg tablet take 1 tablet (100MG) by oral route every day 100 MG - Active Procedures Procedure Date OFFICE/OUTPATIENT VISIT, [facility] OFFICE/OUTPATIENT VISIT, EST PREV VISIT, [facility], AGE 18-39 OFFICE/OUTPATIENT VISIT, EST PREV VISIT, [facility], AGE 18-39 Advance Directives Directive Yes / No Effective Date File Name No Information Encounters Encounter Description Practice Location Reason(s) For Visit Diagnoses Date Provider Providers Copied on Encounter [facility], [address] [place], [id number], tel:[phone] [facility] No Information 4 Mando David. [address] [facility] [place], [address] , [place]. tel:[phone] Referring Provider: Frankie Gilmore, [address] [facility] [place], [place], [address]. tel:[phone] OFFICE/OUTPA TIENT VISIT, EST [facility], [address] [place], [place], [address], tel:[phone] [facility] HTN (chief complaint)tac hycardia (chief complaint)col on polyp (chief complaint) Dietary surveillance and counselingHypert ension, UnspecifiedTachy cardiaAnal and rectal polyp 4 Mando David. [address], [place], [place], [address] , [place]. [phone] Referring Provider: Mac[address] Mcbride [address], [place], [place], [address]. tel:[phone] OFFICE/OUTPA TIENT VISIT, EST [facility], [address], [place], [place], [address], [place] [phone] [facility] TG (chief complaint)diz ziness (chief complaint)HTN (chief complaint) Hypertension, UnspecifiedMulti ple sclerosisTachyca rdia 4 Mando Maxwell [address], [place], [place], [address] , [place]. [phone] Referring Provider: Macario Mcbride [facility], [place], [place], [address]. tel:[phone] PREV VISIT, EST, AGE 18-39 [facility], [address], [place], [place], [address], [place] [phone] [facility] HTN (chief complaint)rec gabriel bleeding (chief complaint)PHy sical (chief complaint) Routine Medical ExamRoutine Medical Exam 4 Mando David. [address], [place], [place], [address] , [place]. [phone] Referring Provider: Macario Mcbr[address], [place], [place], [address]. tel:[phone] OFFICE/OUTPA TIENT VISIT, EST [facility], [address], [place], [place], [address], [place] tel:[phone] [facility] constipation (chief complaint)HTN (chief complaint)Uri ne color (chief complaint)MS (chief complaint) Constipation, unspecifiedHyper tension, UnspecifiedMulti ple sclerosisUrinary Tract Infection 4 Gilmore Frankie. [address], [place], [place], [address] , . tel:[phone] Referring Provider: Frankie Gilmore, [address], [place], [place], [address]. tel:[phone] PREV VISIT, NEW, AGE 18-39 [facility], [address], [place], [place], [address], tel:[phone] [facility] Physical (chief complaint) Routine Medical ExamRoutine Medical Exam 3 Gilmore Frankie. [address], [place], [place], [address] , [place]. tel:[phone] Referring Provider: Frankie Gilmore, [address], [place], [place], [address]. tel:[phone] Family History Family Member Type Diagnosis Age At Onset Mother Problem (finding) Unknown Disease Father Problem (finding) Unknown Disease Brother Problem (finding) Alive and well Payers Payer name Insurance type Covered green party ID Authoriza tion(s) No Information Social History Type Description Quantity Date Captured Comments Sex Female Smoking Status No Information Chief Complaint And Reason For Visit No Information Plan Of Treatment Date Type Action Status Goal Tobacco cessation counseling completed Goal Tobacco cessation counseling completed Goal Tobacco cessation counseling completed Goal Tobacco cessation counseling completed Referral Ordered: Gastroentergy (related to Anal and rectal polyp) ordered Referral Ordered: Cardiology (related to Tachycardia, unspecified) ordered Referral Ordered: Referral: Cardiology. ordered Referral Ordered: Cardiology (related to Tachycardia, unspecified) ordered Referral Ordered: ECG MONITOR/RECORD, 24 HRS ordered Referral Ordered: Referral: Cardiology. Evaluate and treat. ordered Referral Ordered: COLONOSCOPY AND BIOPSY ordered Referral Ordered: Referral: Gastroentergy. ordered Referral Ordered: FOOT XRAY, TWO VIEW Right ordered History Of Present Illness Encounter Date Complaint History Of Prese nt Illness No Information Instructions Date Instruction Additional Infor mation No Information Assessments Type Assessment Date No Information
--- OUTSIDE RECORDS SUMMARY | 2024-11-12 20:52 | XMS_ITS | Clinical Summary ---
Author Organization [facility] Mary kearney Aleksandar Address [address] [place] [address] Care Team Providers Care Final Inspector Motorcyles Name Role Phone Matilda Campos MD Primary Care Provider [phone] Allergies No known active allergies Medications predniSONE (DELTASONE) 20 mg tablet Take 20 mg by mouth daily with breakfast. 09/26/2024 Active IBUPROFEN ORAL Take by mouth. Active ferrous sulfate (FEOSOL) 300 mg (60 mg iron)/5 mL solution Take 300 mg by mouth daily. Active Active Problems No known active problems Encounters Date Type Department Care Team Description 11/11/2024 External Device Data STL ABSTRACTION Provider, Abstract 11/03/2024 4:30 PM SETTLEMENT CLERK Telephone Check Up [facility] - [place] [address] [place] [address] Akash Kim MD Chronic anemia (Primary Dx) 11/03/2024 Orders Only [facility] [place] Evelyne [address] [place] [address] Scanning, Provider 10/08/2024 Orders Only [facility] - [place] Evelyne [address] [place] [address] Akash Kim MD 10/06/2024 External Device Data STL ABSTRACTION Provider, Abstract 10/05/2024 Orders Only [facility] - [place] Evelyne [address] [place] [address] Akash Kim MD 10/02/2024 Orders Only [facility] - [place] [address] [place] [address] Akash Kim MD 10/01/2024 1:30 PM SETTLEMENT CLERK Office Visit [facility] [address] [facility] [address] [place] [address] Akash Kim MD Chronic anemia (Primary Dx) from Last 3 Months Family History Medical History Relation Name Comments No Known Problems Brother 1 No Known Problems Brother 2 No Known Problems Child Diabetes Father No Known Problems Mother No Known Problems Sister Relation Name Status Comments Brother 1 Alive Brother 2 Alive Child Alive Father Alive Mother Alive Sister Alive Social History Tobacco Use Types Packs/Day Years Used Date Smoking Tobacco: Every Day Cigarettes 11 19. Started: 1994 Alcohol Use Standard Drinks/Week Comments Yes 0 (1 standard drink = 0.6 oz pur e alcohol) ocasionally Sex and Gender Information Value Date Recorded Sex Assigned at Not on file Legal Sex Male 8:15 AM SETTLEMENT CLERK Gender Identity Not on file Sexual Orientation Not on file Last Filed Vital Signs Vital Sign Reading Time Taken Comments Blood Pressure 124/82 10/01/2024 1:17 PM SETTLEMENT CLERK Pulse 76 10/01/2024 1:17 PM SETTLEMENT CLERK Temperature 36.8 ??C (98.2 ??F) 10/01/2024 1:17 PM CS T Respiratory Rate 16 10/01/2024 1:17 PM SETTLEMENT CLERK Oxygen Saturation 98% 10/01/2024 1:17 PM SETTLEMENT CLERK Inhaled Oxygen Concentration - - Weight 50.8 kg (112 lb) 10/01/2024 1:17 PM SETTLEMENT CLERK Height 167.6 cm (5' 6 ) 10/01/2024 1:17 PM SETTLEMENT CLERK Body Mass Index 18.08 10/01/2024 1:17 PM SETTLEMENT CLERK Plan of Treatment Upcoming Encounters Date Type Department Care Team (Late st Contact Info) Description 03/04/2025 11:00 AM CDT Office Visit [facility] H[facility]ology - [place] [address] [place] [address] Akash Kim MD [address] [place] [address] Health Maintenance Due Date Last Done Comments DTAP/TDAP/TD VACCINES (1 - Tdap) 01/21/1999 HEPATITIS B VACCINES (1 of 3 - 19+ 3-dose series) 01/21/1999 INFLUENZA VACCINE (#1) 2024 HPV VACCINES Aged Out No longer eligi ble based on patient's age to complete this topic Procedures Procedure Name Priority Date/Time Associated Diagnosis Comments PROTEIN ELECTROPHORESIS, CSF Routine 11/03/2024 2:54 PM SETTLEMENT CLERK TRANSFERRIN RECEPTOR TFR SOLUBLE Routine 10/07/2024 9:17 AM SETTLEMENT CLERK CBC WITH DIFFERENTIAL Routine 10/01/2024 2:54 PM SETTLEMENT CLERK COMPREHENSIVE METABOLIC PANEL Routine 10/01/2024 10:12 AM SETTLEMENT CLERK COMPREHENSIVE METABOLIC PANEL Routine 10/01/2024 10:07 AM SETTLEMENT CLERK from Last 3 Months Results * PROTEIN ELECTROPHORESIS, CSF (11/03/2024 2:54 PM SETTLEMENT CLERK) Cerebrospinal fluid CEREBROSPINAL FLUID / Unknown Provider Scanning BODY FLUIDS AND STOOLS Final R esult * TRANSFERRIN RECEPTOR TFR SOLUBLE (10/07/2024 9:17 AM SETTLEMENT CLERK) Blood Akash Kim MD CHEMISTRY ORDERABLES Final Resu lt * CBC WITH DIFFERENTIAL (10/01/2024 2:54 PM SETTLEMENT CLERK) Blood Akash Kim MD HEMATOLOGY ORDERABLES Final Res ult * COMPREHENSIVE METABOLIC PANEL (10/01/2024 10:12 AM SETTLEMENT CLERK) Only the most recent of2 resultswithin the time period is included. Blood Akash Kim MD CHEMISTRY ORDERABLES Final Resu lt from Last 3 Months Insurance MEDICAID [place] Care Teams Final Inspector Motorcyles Relationship Specialty Start Date End Date Matilda Campos MD [address] [place] [address] Dr [address] [place] [phone] PCP - General Internal Medicine 11/06/24
--- OUTSIDE RECORDS SUMMARY | 2024-11-12 20:52 | XMS_ITS | Encounter Summary ---
Author Organization [facility] Address [address] [place] [address] Care Team Providers Care Voice Coach Name Role Phone Caden Cuba MD Primary Care Provider [phone] Reason for Referral * Consultation (Routine) - Closed Specialty Diagnoses / Procedures Referred By Tianna weiss Referred To Contact Neurology Diagnoses Multiple sclerosis (HCC) Ja Wynne APRN-CLINICAL RN [address] [place] [address] [facility] [address] [place] [address] Referral ID Status Reason Start Date Expiration Date V isits Requested Visits Authorized [id number] Closed Specialty Services Required 09/21/2024 09/21/2025 1 1 [employer] Encounter Details Date Type Department Care Team (Latest Contact Info) Description 09/21/2024 Transcribe Orders [facility] - Centralized Scheduling [address] [place] [id number] Ja Wynne, SUPPORT ASSOCIATE-CLINICAL RN [address] [place] [address] Multiple sclerosis (HCC) Social History Tobacco Use Types Packs/Day Years Used Date Smoking Tobacco: Every Day Smokeless Tobacco: Never Alcohol Use Standard Drinks/Week Comments Not Asked 0 (1 standard drink = 0.6 oz pur e alcohol) Sex and Gender Information Value Date Recorded Sex Assigned at Not on file Gender Identity Not on file Sexual Orientation Not on file documented as of this encounter Plan of Treatment Scheduled Referrals Name Type Priority Associated Diagnoses Order Schedule AMB REFERRAL TO NEUROLOGY Outpatient Referral Routine Multiple sclerosis (HCC) 1 Occurrences starting 09/21/2024 until 09/21/2025 documented as of this encounter Visit Diagnoses Diagnosis Multiple sclerosis (HCC)- Primary Multiple sclerosis documented in this encounter Care Teams Voice Coach Relationship Specialty Start Date End Date Caden Cuba MD [address] [place] [address] PCP - General 04/21/15 documented as of this encounter
--- OUTSIDE RECORDS SUMMARY | 2024-11-12 20:52 | XMS_ITS | Referral Summary ---
Author Organization [facility] Address [address] [place] [address] Care Team Providers Care New Car Driver Name Role Phone Caden Cuba MD Primary Care Provider [phone] Source Comments [facility],non-owned Affiliates and Associated Physician Practices is amultiple site organization consisting of ambulatory clinics and hospital sitesin [place], [place], [place] and [place]. This disclosure is being madepursuant to the Care Everywhere program and may not contain all information available regarding this patient. Last updated 18.[facility] [employer] Encounters Date Type Department Care Team Description 09/21/2024 Transcribe Orders [facility] - Centralized Scheduling [facility] [place] [id number] Ja Wynne, CONCRETE PIPE MACHINE OPERATOR-RAILROAD WHEELS AND AXLE INSPECTOR Multiple sclerosis (HCC) from Last 3 Months [...] 07/04/2015 1:00 PM CDT Plan of Treatment Not on file Care Teams New Car Driver Relationship Specialty Start Date End Date Caden Cuba MD [address] [place] [address] PCP - General 04/21/15
== END 2024-11-11 09:06 | disposition home or self-care (01) ==
PROVIDERS: Anesthesiology; PCP Family Medicine; Referring Provider Registered Nurse; Visit Provider Internal Medicine Gastroenterology
PROC: 0DJD8ZZ Inspection of Lower Intestinal Tract, Via Natural or Artificial Opening Endoscopic (ICD-10-PCS; CPT 45378; principal; 2024-11-11 08:00)
DX: D64.9 Anemia, unspecified (principal); K64.8 Other hemorrhoids; K57.30 Diverticulosis of large intestine without perforation or abscess without bleeding; F41.9 Anxiety disorder, unspecified; G35 Multiple sclerosis; F17.210 Nicotine dependence, cigarettes, uncomplicated; Z79.1 Long term (current) use of non-steroidal anti-inflammatories (NSAID); Z79.85 Long-term (current) use of injectable non-insulin antidiabetic drugs; Z98.890 Other specified postprocedural states; Z98.51 Tubal ligation status; Z86.0100 Personal history of colon polyps, unspecified
CPT/HCPCS: 45378; J2003; J2371; J2704; J7120

== ENCOUNTER 2025-01-28 11:21 | Inpatient (IN) | payer OTHER, SELFPAY ==
[2025-01-28] VITALS (38 sets, daily range): BP systolic 122–162; BP diastolic 64–125; PULSE 86–133; RESP 15–24; TEMP 36.6–36.9; O2SAT 96–100; BMI 17.2
--- NOTE | 2025-01-28 12:06 | ED_ITS ---
HPI - General Adult General Chief complaint: Unspecified Stated complaint: Has MS-worsening numbness/pain Time Seen by Provider: 01/28/25 12:03 Source: patient Limitations: physical limitation History of Present Illness HPI narrative: 45-year-old female with a history of multiple sclerosis presents with worsening numbness and pain here abdomen, back, and legs. She notes that she has both diminished sensation as well as a degree of hyperalgesia as she feels like she is in an ice bath like the entire bottom half of her body is experiencing frostbite. She was admitted in October 13 for similar and she states interval really got better but especially over the past month has progressed. She denies any falls although she states that this is only because she is incredibly cautious because she knows she is at risk. She states if she stands for too long sometimes she feels like she will fold over in [place]. She has been forcing herself to eat but in general states that she has had decreased p.o. intake. She has minimal sensation with her bowel and bladder and has a weak urinary stream. She has to force herself to go. She is also taking laxatives to help with this. She states she spoke with her neurologist who recommended she come to the emergency department to start steroid therapy. She denies any shortness of breath or chest pain. Patient is not currently on any therapy for multiple sclerosis. She only takes an iron supplement and Tylenol p.r.n.. Has been trying heat pads. Related Data Home Medications ?Medication ?Instructions ?Recorded ?Confirmed ?Last Taken ?Type ferrous sulfate 325 mg (65 mg 325 mg PO DAILY 09/20/24 01/28/25 01/27/25 History iron) tablet (FeroSul) ibuprofen 400 mg tablet 400 mg PO Q6H PRN Pain 09/20/24 01/28/25 Unknown History acetaminophen 325 mg tablet 650 mg PO Q4H PRN fever or pain 01/28/25 01/28/25 Unknown History (Tylenol) Allergies Allergy/AdvReac Type Severity Reaction Status Date / Time No Known Allergies Allergy Unknown Verified 01/28/25 16:41 [facility] Past Medical History Medical History (Updated 01/28/25 @ 19:24 by Aida Jules, STEFAN) Iron deficiency anemia Multiple sclerosis History of colonic polyps Anxiety Abnormal protein electrophoresis Tobacco dependence Surgical History Surgical History H/O colonoscopy History of tubal ligation Family History Family History Other Unknown family medical history Social History Social History Social History: Surrogate medical decision maker: Arnavlinsey Ray, significant other. Code status: Full code. Smoking packs per day: 1 Smoking cigarettes per day: 20.0 Years smoked: 30 Smoking pack-years: 30.00 Smoking status: Current every day smoker Tobacco type: cigarettes Alcohol intake: current Drinks per week: 1 Alcohol use details: ocassional Substance use: former Substance use type: marijuana Other substance usage details: has not used in years Do You Feel Safe in your Home?: Yes Lack of Transportation: No Lack of Food: Never True Current Housing: I Have Housing Concerned About Future Housing: No Difficulty Paying Gas/Electric Bills: No Difficulty Paying for Meds: No Currently Unemployed: No Education: Decline to Answer Difficulty w/ Childcare or Family Care: No Living arrangements: with family Spiritual care concerns: No Exam 2 Narrative: GENERAL: Well-appearing, well-nourished, and in no acute distress. HEAD: Normocephalic, atraumatic. EYES: Non injected, non icteric ENT: Nares clear, no rhinorrhea or epistaxis. NECK: Supple. CHEST: Speaking in full sentences. No respiratory distress. HEART: Tachycardic rate and rhythm. . ABDOMEN: Soft, nondistended. Nontender to palpation throughout. No rigidity or guarding. Not peritoneal. EXTREMITIES: Normal range of motion. No lower extremity edema. Distal extremities are warm without being erythematous. Her bilateral knees are cool, near mottled but not so proximally or distally. SKIN: Warm, dry. NEURO: Alert and oriented x3. Sensation intact in bilateral lower extremities however reports it feeling like ice PSYCH: Normal mood and affect. Course Vital Signs Vital signs: Vital Signs Temperature 97.9 F 01/28/25 11:30 Pulse Rate 133 H 01/28/25 11:30 Respiratory Rate 16 01/28/25 11:30 Blood Pressure 162/110 H 01/28/25 11:30 Pulse Oximetry 100 01/28/25 11:30 Oxygen Delivery Room Air 01/28/25 11:30 Temperature 97.6 F 01/29/25 08:02 Pulse Rate 91 01/29/25 08:02 Respiratory Rate 12 01/29/25 08:02 Blood Pressure 116/77 01/29/25 08:02 Pulse Oximetry 98 01/29/25 08:02 Oxygen Delivery Room Air 01/28/25 20:00 Medical Decision Making MDM Narrative Medical decision making narrative: Patient presents with worsening numbness and pain in her abdomen/trauma, back, and bilateral lower extremities. Advised by her neurologist to present to the emergency department for presumed MS flare which she has had before. In the emergency department she is afebrile with vital signs notable for hypertension tachycardia. Discussed with Dr. Mackenzie who is patient's neurologist who recommends admitting for 5 days of IV steroids, 1000 mg Solu-Medrol divided as 250 q.6. This is ordered with a stop date in place. He thought she was on a poor quality disease modifying medication however patient states she is currently on no disease modifying medication. Discussed with him that there are some worrying features of cauda equina or other rarer disorders. We did review her imaging from MRIs obtained in September 2024 which do confirm patient has known multiple sclerosis and discussed that her symptoms are consistent with this. Did not feel that she required additional MRI imaging again. Mild thrombocytosis, chronic/stable. test negative. Patient is bladder scanned but with a delay in obtaining PVR. At the time it is performed is 231 cc, again though, with a delay in being performed so possibly normal versus retention/ true residual. Discussed with hospitalist MAI Parra who accepted admission. Orders placed. Differential Diagnosis Differential Diagnosis: Multiple sclerosis flare, cauda equina/cord compression, Elsberg syndrome (sacral radiculitis); Lhermitte-Aamir disease Medical Records Medical records reviewed: Yes I reviewed the external patient's medical records. Medical records narrative: Brain, C-spine, and lumbar spine MRI imaging from September 2024 is reviewed which did show lesions consistent with patient's known multiple sclerosis Vital Signs Vital Signs: Vital Signs Temperature 97.9 F 01/28/25 11:30 Pulse Rate 133 H 01/28/25 11:30 Respiratory Rate 16 01/28/25 11:30 Blood Pressure 162/110 H 01/28/25 11:30 Pulse Oximetry 100 04/10/25 11:30 Oxygen Delivery Room Air 01/28/25 11:30 Temperature 97.6 F 01/29/25 08:02 Pulse Rate 91 01/29/25 08:02 Respiratory Rate 12 01/29/25 08:02 Blood Pressure 116/77 01/29/25 08:02 Pulse Oximetry 98 01/29/25 08:02 Oxygen Delivery Room Air 01/28/25 20:00 Lab Data Lab results reviewed: Yes I reviewed the patient's lab results. Lab results narrative: Normal D-dimer. Urinalysis unremarkable. Normal renal function. Normal lipase. 01/29/25 07:20 01/29/25 07:20 Labs: Lab Results 01/28/25 01/28/25 01/28/25 Range/Units 12:45 12:52 14:08 WBC 9.2 (4.5-10.0) K/mm3 RBC 4.05 L (4.2-5.4) M/mm3 Hgb 12.7 (12.0-15.0) g/dL Hct 38.3 (37.0-47.0) % MCV 94.6 (80-100) fl MCH 31.4 (26-34) pg MCHC 33.2 (32-36) g/dl RDW 13.4 (11.5-14.5) % Plt Count 401 H (150-375) k/mm3 MPV 9.8 (7.4-10.4) fl Immature Gran % (Auto) 0.2 (0-0.5) % Neut % (Auto) 77.0 H (45.5-73.1) % Lymph % (Auto) 14.0 L (18.3-44.2) % Bulloch % (Auto) 7.8 (2.6-8.5) % Eos % (Auto) 0.5 (0-4.4) % Baso % (Auto) 0.5 (0.2-1.2) % Lymph # (Auto) 1.29 (0.9-3.2) K/mm3 Bulloch # (Auto) 0.7 H (0.1-0.6) K/mm3 Eos # (Auto) 0.1 (0-0.3) K/mm3 Baso # (Auto) 0.1 (0.0-0.1) K/mm3 Abs Immat Gran (auto) 0.02 (0.00-0.031) K/mm3 Absolute Neuts (auto) 7.1 H (1.3-6.7) K/mm3 Absolute Nucleated RBC 0.000 (0.0-0.012) K/mm3 Nucleated RBC % 0.0 (0.0-0.2) % PT 12.9 (11.1-14.7) Seconds INR 0.9 APTT 28.0 (22.3-36.8) Seconds D-Dimer < 0.27 (<0.48) ug/mL Sodium 138 (137-145) mmol/L Potassium 4.4 (3.4-5.0) mmol/L Chloride 105 (98-107) mmol/L Carbon Dioxide 24 (22-30) mmol/L Anion Gap 9 (4-12) mmol/L BUN 15 D (7-17) mg/dL Creatinine 0.56 L (0.7-1.0) mg/dL Estim Creat Clear Calc Not Reportable Estimated GFR > 60 (59 - ) Glucose 91 (65-110) mg/dL Calcium 9.6 (8.4-10.2) mg/dL Total Bilirubin 0.2 (0.2-1.3) mg/dL AST 22 (14-36) U/L ALT 16 (6-35) U/L Alkaline Phosphatase 63 (38-126) U/L Total Protein 7.0 (6.3-8.2) g/dL Albumin 4.6 (3.5-5.1) g/dL Lipase 107 (23-300) U/L TSH (Reflex) 1.200 (0.465-4.68) uIU/mL Urine Color Yellow (Yellow) Urine Appearance Clear (Clear) Urine pH 5.5 (5.0-9.0) Ur Specific Kin[place] 1.009 (1.001-1.035) Urine Protein Negative (Negative) mg/dL Urine Glucose (UA) Negative (Negative) mg/dL Urine Ketones Negative (Negative) mg/dL Ur Blood (Man) Negative (Negative) Urine Nitrate Negative (Negative) Urine Bilirubin Negative (Negative) Urine Urobilinogen 0.2 (<2.0) mg/dL Leukocyte Esterase Rfl Negative (Negative) RK/UL POC Urine HCG, Qual Negative (Negative) ECG Data EKG #1: Attestation: I personally reviewed and interpreted this ECG as follows: ECG completion date: 01/28/25 ECG completion time: 14:01 Interpretation: Normal sinus rhythm at a rate of 83 beats per minute. Pre populated EKG algorithm suggests a second-degree AV block Mobitz type 2 however P-waves precede all QRS complexes in QRS complexes follow all P-waves and there are no dropped beats, missed beats, or lengthening of [place] interval as all seem consistent. There is some mild R to R variation more consistent with a sinus arrhythmia likely due to respiratory variation and otherwise benign finding. Good R-wave progression across the precordial leads. No T-wave inversions. QRS 88. QT/QTC 345/385. Discharge Plan Discharge Clinical Impression: Multiple sclerosis exacerbation, Thrombocytosis Patient Disposition: Still a Patient Condition: Stable
--- OUTSIDE RECORDS SUMMARY | 2025-01-28 12:09 | XMS_ITS | Continuity of Care Document ---
Author Organization [facility] Address [address] [facility] [place] [address] Phone Care Team Providers Care Section Supervisor Name Role Phone Frankie Gilmore MD Unavailable Unavailable Allergies, Adverse Reactions, Alerts Substance Reaction Status Criticality No Known Allergies Active No Inform ation Medications Medication Instructions Dosage Effective Dates (start - stop) Status Comments losartan 100 mg tablet take 1 tablet (100MG) by oral route every day 100 MG - Active Procedures Procedure Date OFFICE/OUTPATIENT VISIT, [facility] OFFICE/OUTPATIENT VISIT, EST PREV VISIT, [facility], AGE 18-39 OFFICE/OUTPATIENT VISIT, EST PREV VISIT, [facility], AGE 18-39 Advance Directives Directive Yes / No Effective Date File Name No Information Encounters Encounter Description Practice Location Reason(s) For Visit Diagnoses Date Provider Providers Copied on Encounter [facility] [place], [address] [place], [id number], tel:[phone] [facility] [place] No Information 4 Mando David. [address] [facility], [id number] , [place]. tel:[phone] Referring Provider: Frankie Gilmore, [address] [facility] [place], [id number]. tel:[phone] OFFICE/OUTPA TIENT VISIT, EST [facility] [place], [address] [place], [id number], tel:[phone] [facility] [place] HTN (chief complaint)tac hycardia (chief complaint)col on polyp (chief complaint) Dietary surveillance and counselingHypert ension, UnspecifiedTachy cardiaAnal and rectal polyp 4 Mando David. [address], [address], [place], [place], [address] , [place]. [phone] Referring Provider: [address] Mcbr[address], [place], [place], [address]. tel:[phone] OFFICE/OUTPA TIENT VISIT, EST [facility] [place], [address], [place], [place], [address], [place] [phone] [facility] [place] TG (chief complaint)diz ziness (chief complaint)HTN (chief complaint) Hypertension, UnspecifiedMulti ple sclerosisTachyca rdia 4 Mando Maxwell [address], [address], [place], [place], [address] , [place]. [phone] Referring Provider: Macario Mcbride [facility], [place], [place], [id number]. tel:[phone] PREV VISIT, EST, AGE 18-39 [facility] [place], [address], [place], [place], [address], [place] [phone] [facility] [place] HTN (chief complaint)rec gabriel bleeding (chief complaint)PHy sical (chief complaint) Routine Medical ExamRoutine Medical Exam 4 Mando David. [address], [address], [place], [place], [address] , [place]. [phone] Referring Provider: Macario Mcbr[address], [place], [place], [address]. tel:[phone] OFFICE/OUTPA TIENT VISIT, EST [facility] [place], [address], [place], [place], [address], [place] tel:[phone] [facility] [place] constipation (chief complaint)HTN (chief complaint)Uri ne color (chief complaint)MS (chief complaint) Constipation, unspecifiedHyper tension, UnspecifiedMulti ple sclerosisUrinary Tract Infection 4 Gilmore Frankie. [address], [address], [place], [place], [address] , . tel:[phone] Referring Provider: Frankie Gilmore, [address], [place], [place], [address]. tel:[phone] PREV VISIT, NEW, AGE 18-39 [facility], [address], [place], [place], [address], tel:[phone] [facility] [place] Physical (chief complaint) Routine Medical ExamRoutine Medical Exam 3 Gilmore Frankie. [address], [place], [place], [address] , [place]. tel:[phone] Referring Provider: Frankie Gilmore, [address], [place], [place], [address]. tel:[phone] Family History Family Member Type Diagnosis Age At Onset Mother Problem (finding) Unknown Disease Father Problem (finding) Unknown Disease Brother Problem (finding) Alive and well Payers Payer name Insurance type Covered democrat ID Authoriza tion(s) No Information Social History [...]
--- OUTSIDE RECORDS SUMMARY | 2025-01-28 12:09 | XMS_ITS | Encounter Summary ---
Author Organization [facility] Address [address] [facility] [place] [address] Care Team Providers Care Bituminous Distributor Operator Name Role Phone Caden Cuba MD Primary Care Provider [phone] Reason for Referral * Consultation (Routine) - Closed Specialty Diagnoses / Procedures Referred By Tianna weiss Referred To Contact Neurology Diagnoses Multiple sclerosis (HCC) Ja Wynne APRN-SPOOL HAULER [address] [place] [address] [facility] [address] [place] [address] Referral ID Status Reason Start Date Expiration Date V isits Requested Visits Authorized [id number] Closed Specialty Services Required 09/21/2024 09/21/2025 1 1 MONITOR Encounter Details Date Type Department Care Team (Latest Contact Info) Description 09/21/2024 Transcribe Orders [facility] - Centralized Scheduling [address] [place] [id number] Ja Wynne, MOSAIC TILER-SPOOL HAULER [address] [place] [address] Multiple sclerosis Social History Tobacco Use Types Packs/Day Years [...] TO NEUROLOGY Outpatient Referral Routine Multiple sclerosis 1 Occurrences starting 09/21/2024 until 09/21/2025 documented as of this encounter Visit Diagnoses Diagnosis Multiple sclerosis (HCC)- Primary Multiple sclerosis documented in this encounter Care Teams Bituminous Distributor Operator Relationship Specialty Start Date End Date Caden Cuba MD [address] [facility] [address] [place] [address] PCP - General 04/21/15 documented as of this encounter
--- OUTSIDE RECORDS SUMMARY | 2025-01-28 12:09 | XMS_ITS | Clinical Summary ---
Author Organization [facility] Mary kearney Aleksandar Address [address] [place] [address] Care Team Providers Care Sheet Finisher Name Role Phone Matilda Campos MD Primary Care Provider [phone] Allergies No known active allergies Medications predniSONE (DELTASONE) 20 mg tablet Take 20 mg by mouth daily with breakfast. 09/26/2024 Active IBUPROFEN ORAL Take by mouth. Active ferrous sulfate (FEOSOL) 300 mg (60 mg iron)/5 mL solution Take 300 mg by mouth daily. Active Active Problems No known active problems Encounters Date Type Department Care Team Description 12/15/2024 External Device Data ST[facility] ABSTRACTION Provider, Abstract 11/24/2024 External Device Data ST[facility] ABSTRACTION Provider, Abstract 11/17/2024 External Device Data ST[facility] ABSTRACTION Provider, Abstract 11/11/2024 External Device Data ST[facility] ABSTRACTION Provider, Abstract 11/11/2024 External Device Data ST[facility] ABSTRACTION Provider, Abstract 11/03/2024 4:30 PM ASSOCIATE PROFESSOR OF MUSIC Telephone Check Up [facility] - [place] [address] [place] [address] Akash Kim MD Chronic anemia (Primary Dx) 11/03/2024 Orders Only [facility] [place] [address] [place] [address] Scanning, Provider from Last 3 Months Family History Medical [...] Used Date Smoking Tobacco: Every Day Cigarettes 1 30.3 Started: 1994 Alcohol Use Standard Drinks/Week Comments Yes 0 (1 standard drink = 0.6 oz pur e alcohol) ocasionally Sex and Gender Information Value Date Recorded Sex Assigned at Not on file Legal Sex Male 8:15 AM ASSOCIATE PROFESSOR OF MUSIC Gender Identity Not on file Sexual Orientation Not on file Last Filed Vital Signs Vital Sign Reading Time Taken Comments Blood Pressure 124/82 10/01/2024 1:17 PM ASSOCIATE PROFESSOR OF MUSIC Pulse 76 10/01/2024 1:17 PM ASSOCIATE PROFESSOR OF MUSIC Temperature 36.8 C (98.2 F) 10/01/2024 1:17 PM ASSOCIATE PROFESSOR OF MUSIC Respiratory Rate 16 10/01/2024 1:17 PM ASSOCIATE PROFESSOR OF MUSIC Oxygen Saturation 98% 10/01/2024 1:17 PM ASSOCIATE PROFESSOR OF MUSIC Inhaled Oxygen Concentration - - Weight 50.8 kg (112 lb) 10/01/2024 1:17 PM ASSOCIATE PROFESSOR OF MUSIC Height 167.6 cm (5' 6 ) 10/01/2024 1:17 PM ASSOCIATE PROFESSOR OF MUSIC Body Mass Index 18.08 10/01/2024 1:17 PM ASSOCIATE PROFESSOR OF MUSIC Plan of Treatment Upcoming Encounters Date Type Department Care Team (Late st Contact Info) Description 03/04/2025 11:00 AM CDT Office Visit [facility] [place] [address] [facility] [address] [place] [address] Akash Kim MD [address] [facility] [address] [place] [address] Health Maintenance Due Date Last Done Comments DTAP/TDAP/TD VACCINES (1 - Tdap) 01/21/1999 HEPATITIS B VACCINES (1 of 3 - 19+ 3-dose series) 01/21/1999 INFLUENZA VACCINE (#1) 2024 HPV VACCINES Aged Out No longer eligi ble based on patient's age to complete this topic Procedures Procedure Name Priority Date/Time Associated Diagnosis Comments PROTEIN ELECTROPHORESIS, CSF Routine 11/03/2024 2:54 PM ASSOCIATE PROFESSOR OF MUSIC from Last 3 Months Results * PROTEIN ELECTROPHORESIS, CSF (11/03/2024 2:54 PM ASSOCIATE PROFESSOR OF MUSIC) Cerebrospinal fluid CEREBROSPINAL FLUID / Unknown us Provider Scanning BODY FLUIDS AND STOOLS Final R esult from Last 3 Months Insurance [employer] Care Teams Sheet Finisher Relationship Specialty Start Date End Date Matilda Campos MD [address] [place] [address] [phone] PCP - General Internal Medicine 11/06/24
--- OUTSIDE RECORDS SUMMARY | 2025-01-28 12:09 | XMS_ITS | Clinical Summary ---
Author Organization [facility] [place] Address [address] [place] [address] Care Team Providers Care Home Care Giver Name Role Phone Caden Cuba MD Primary Care Provider [phone] Source Comments [facility] and [facility] Practices is amultiple site organization consisting of ambulatory clinics and hospital sitesin [place] and [place]. This disclosure is being madepursuant to the Care Everywhere program and may not contain all information available regarding this patient. Last updated 18.[facility] [place] Social History Tobacco Use Types Packs/Day Years [...] Health Maintenance Due Date Last Done Comments COLOGUARD (AGES 45-75) - COL ON CA SCREENING 1980 COLON MONITORING 1980 COLONOSCOPY - COLON CA SCREENING 1980 CT COLONOGRAPHY - COLON CA SCREENING 1980 Colorectal Cancer Screening 1980 FIT - COLON CA SCREENING 1980 FLEX SIG - COLON CA SCREENING 1980 LIPID TESTING 1980 MAMMOGRAM 1980 PAP SMEAR 1980 HIV SCREENING 01/21/1995 HEPATITIS C SCREENING 01/17/1998 DTAP/TDAP/TD VACCINES (1 - Tdap) 01/21/1999 HEPATITIS B VACCINE (1 of 3 - 19+ 3-dose series) 01/21/1999 PNEUMOCOCCAL VACCINE (1 of 2 - PCV) 01/21/1999 COVID-19 VACCINE (1 - 2023-2 5 season) 2024 DEPRESSION SCREENING 10/21/2024 INFLUENZA VACCINE (Season Ended) 2025 ZOSTER VACCINE (1 of 2) 01/21/2030 HIB VACCINE Aged Out No longer eligi ble based on patient's age to complete this topic HPV VACCINE Aged Out No longer eligi ble based on patient's age to complete this topic MENINGOCOCCAL (Group B) VACC INE SHARED DECISION-MAKING Aged Out No longer eligibl e based on patient's age to complete this topic MENINGOCOCCAL GROUPS A/C/Y/W VACCINE Aged Out No longer eligible b ased on patient's age to complete this topic Care Teams Home Care Giver Relationship Specialty Start Date End Date Caden Cuba MD [address] [place], [place] [id number] [facility] - General 04/21/15
--- OUTSIDE RECORDS SUMMARY | 2025-01-28 12:09 | XMS_ITS | Clinical Summary ---
Author Organization [facility] Address [address] [place] [address] Care Team Providers Care Solar Installer Pv Name Role Phone Matilda Campos MD Primary [...] 30 to 64) Every 3 Years 1980 Colorectal Cancer Screening Colonoscopy (10 Years) 1980 Annual Physical 01/21/1983 Hepatitis C 01/21/1998 DTaP, Tdap and Td Vaccines ( 1 - Tdap) 01/21/1999 Hepatitis B Vaccines (1 of 3 - 19+ 3-dose series) 01/21/1999 Cervical Cancer Screening Pa p with HPV Testing (Age 30 to 64) Every 5 Years 01/21/2010 Cervical Cancer Screening with HPV 01/21/2010 Mammogram Screening 2020 COVID-19 Vaccine (2023-2 5 season) 2024 HPV Vaccines Aged Out No longer eligi ble based on patient's age to complete this topic Meningococcal B Vaccine Aged Out No l onger eligible based on patient's age to complete [...] complete this topic Insurance [employer] Care Teams Solar Installer Pv Relationship Specialty [place] [id number] [address] PCP - General INTERNAL MEDICINE 05/08/24
--- NOTE | 2025-01-28 12:10 | ECG_ITS ---
Test Date: 2025-01-28 14:01:47 Measurements Intervals [place] Rate: 83 P: 0 ID: 0 QRS: 72 QRSD: 88 T: 48 QT: 345 QTc: 406 Interpretive Statements SINUS RHYTHM CONSIDER ANTERIOR INFARCT, AGE INDETERMINATE ABNORMAL ECG Compared to ECG 09/20/2024 14:48:23 NO SIGNIFICANT CHANGE Electronically Signed On 01-28-2025 14:09:46 CDT by Morales Cifuentes D.O.
--- OUTSIDE RECORDS SUMMARY | 2025-01-28 12:40 | XMS_ITS | Clinical Summary ---
Author Organization [facility] Mary kearney Aleksandar Address [address] [place] [address] Care Team Providers Care Tuyere Fitter Name Role Phone Matilda Campos MD Primary Care Provider [phone] Allergies No known active allergies Medications predniSONE [...] STL ABSTRACTION Provider, Abstract 11/03/2024 4:30 PM MEDICAID SERVICE COORDINATOR Telephone Check Up [facility] Oncology and Hematology - [place] [address] [place] [address] Akash Kim MD Chronic anemia (Primary Dx) 11/03/2024 Orders Only [facility] H[facility] [place] [address] [place] [address] Scanning, Provider from Last 3 [...] on file Legal Sex Male 8:15 AM MEDICAID SERVICE COORDINATOR Gender Identity Not on file Sexual Orientation Not on file Last Filed Vital Signs Vital Sign Reading Time Taken Comments Blood Pressure 124/82 10/01/2024 1:17 PM MEDICAID SERVICE COORDINATOR Pulse 76 10/01/2024 1:17 PM MEDICAID SERVICE COORDINATOR Temperature 36.8 C (98.2 F) 10/01/2024 1:17 PM MEDICAID SERVICE COORDINATOR Respiratory Rate 16 10/01/2024 1:17 PM MEDICAID SERVICE COORDINATOR Oxygen Saturation 98% 10/01/2024 1:17 PM MEDICAID SERVICE COORDINATOR Inhaled Oxygen Concentration - - Weight 50.8 kg (112 lb) 10/01/2024 1:17 PM MEDICAID SERVICE COORDINATOR Height 167.6 cm (5' 6 ) 10/01/2024 1:17 PM MEDICAID SERVICE COORDINATOR Body Mass Index 18.08 10/01/2024 1:17 PM MEDICAID SERVICE COORDINATOR Plan of Treatment Upcoming Encounters Date Type Department Care Team (Late st Contact Info) Description 03/04/2025 11:00 AM CDT Office Visit [facility] Oncology and Hematology - [place] [address] [facility] [address] [place] [address] Akash Kim MD [address] [facility] [address] [place] [address] Health Maintenance Due Date Last Done Comments DTAP/TDAP/TD VACCINES (1 - Tdap) 01/21/1999 HEPATITIS B VACCINES (1 of 3 - 19+ 3-dose series) 01/21/1999 INFLUENZA VACCINE (#1) 2024 HPV VACCINES Aged Out No longer eligi ble based on patient's age to complete this topic Procedures Procedure Name Priority Date/Time Associated Diagnosis Comments PROTEIN ELECTROPHORESIS, CSF Routine 11/03/2024 2:54 PM MEDICAID SERVICE COORDINATOR from Last 3 Months Results * PROTEIN ELECTROPHORESIS, CSF (11/03/2024 2:54 PM MEDICAID SERVICE COORDINATOR) Cerebrospinal fluid CEREBROSPINAL FLUID / Unknown us Provider Scanning BODY FLUIDS AND STOOLS Final R esult from Last 3 Months Insurance [employer] Care Teams Tuyere Fitter Relationship Specialty Start Date End Date Matilda Campos MD [address] [place] [address] [phone] PCP - General Internal Medicine 11/06/24
--- OUTSIDE RECORDS SUMMARY | 2025-01-28 12:40 | XMS_ITS | Clinical Summary ---
Author Organization [facility] Address [address] [place] [address] Care Team Providers Care Newspaper Inserter Name Role Phone Matilda Campos MD Primary [...] complete this topic Insurance [employer] Care Teams Newspaper Inserter Relationship Specialty [place] [id number] [address] PCP - General INTERNAL MEDICINE 05/08/24
--- OUTSIDE RECORDS SUMMARY | 2025-01-28 12:40 | XMS_ITS | Continuity of Care Document ---
Author Organization [facility] Address [address] [facility] [place] [address] Phone Care Team Providers Care Steel Crane Operator Name Role Phone Frankie Gilmore MD Unavailable Unavailable Allergies, Adverse Reactions, Alerts Substance Reaction Status Criticality No Known Allergies Active No Inform ation Medications Medication Instructions Dosage Effective Dates (start - stop) Status Comments losartan 100 mg tablet take 1 tablet (100MG) by oral route every day 100 MG - Active Procedures Procedure Date OFFICE/OUTPATIENT VISIT, [facility] OFFICE/OUTPATIENT VISIT, EST PREV VISIT, [facility], AGE 18-39 OFFICE/OUTPATIENT VISIT, EST PREV VISIT, [facility], AGE 18-39 Advance Directives Directive Yes / No Effective Date File Name No Information Encounters Encounter Description Practice Location Reason(s) For Visit Diagnoses Date Provider Providers Copied on Encounter [facility], [address] [place], [id number], tel:[phone] [facility] No Information 4 Mando David. [address] [facility] [place], [address] , [place]. tel:[phone] Referring Provider: Frankie Gilmore, [address] [facility] [place], [address]. tel:[phone] OFFICE/OUTPA TIENT VISIT, EST [facility], [address] [place], [address], tel:[phone] [facility] HTN (chief complaint)tac hycardia (chief complaint)col on polyp (chief complaint) Dietary surveillance and counselingHypert ension, UnspecifiedTachy cardiaAnal and rectal polyp 4 Mando David. [address], [place], [place], [address] , [place]. [phone] Referring Provider: Mac[address] Mcbride [address], [place], [place], [address]. tel:[phone] OFFICE/OUTPA TIENT VISIT, EST [facility], [address], [place], [place], [address], [place] [phone] [facility] TG (chief complaint)diz ziness (chief complaint)HTN (chief complaint) Hypertension, UnspecifiedMulti ple sclerosisTachyca rdia 4 Mando Maxwell [address], [address], [place], [place], [address] , [place]. [phone] Referring Provider: Macario Mcbride [facility] [address], [place], [place], [address]. tel:[phone] PREV VISIT, EST, AGE 18-39 [facility], [address], [place], [place], [address], [place] [phone] [facility] HTN (chief complaint)rec gabriel bleeding (chief complaint)PHy sical (chief complaint) Routine Medical ExamRoutine Medical Exam 4 M[address] David. [address], [address], [place], [place], [address] , [place]. [phone] Referring Provider: Macario Mcbr[address], [place], [place], [address]. tel:[phone] OFFICE/OUTPA TIENT VISIT, EST [facility], [address], [place], [place], [address], [place] tel:[phone] [facility] constipation (chief complaint)HTN (chief complaint)Uri ne color (chief complaint)MS (chief complaint) Constipation, unspecifiedHyper tension, UnspecifiedMulti ple sclerosisUrinary Tract Infection 4 Gilmore Frankie. [address], [place], [place], [address] , . tel:[phone] Referring Provider: Frankie Gilmore, [address], [place], [place], [address]. tel:[phone] PREV VISIT, NEW, AGE 18-39 [facility], [address], [place], [place], [address], tel:[phone] [facility] Physical (chief complaint) Routine Medical ExamRoutine Medical Exam 3 Gilmore Frankie. [address], [place], [place], [address] , [place]. tel:[phone] Referring Provider: Frankie Gilmore, [address], [place], [place], [address]. tel:[phone] Family History Family Member Type Diagnosis Age At Onset Mother Problem (finding) Unknown Disease Father Problem (finding) Unknown Disease Brother Problem (finding) Alive and well Payers Payer name Insurance type Covered constitution party ID Authoriza tion(s) No Information Social History Type Description Quantity Date Captured Comments Sex Female Smoking Status No Information Chief Complaint And Reason For Visit No Information Plan Of Treatment Date Type Action Status Goal Tobacco cessation counseling completed Goal Tobacco cessation counseling completed Goal Tobacco cessation counseling completed Goal Tobacco cessation counseling completed Referral Ordered: Cardiology (related to Tachycardia, unspecified) ordered Referral Ordered: Gastroentergy (related to Anal and rectal polyp) ordered Referral Ordered: Referral: Cardiology. ordered Referral [...]
--- OUTSIDE RECORDS SUMMARY | 2025-01-28 12:40 | XMS_ITS | Encounter Summary ---
Author Organization [facility] Address [address] [place] [address] Care Team Providers Care Quality Assurance Name Role Phone Caden Cuba MD Primary Care Provider [phone] Reason for Referral * Consultation (Routine) - Closed Specialty Diagnoses / Procedures Referred By Tianna weiss Referred To Contact Neurology Diagnoses Multiple sclerosis (HCC) Ja Wynne APRN-RURAL MAIL CONTRACTOR [address] [place] [address] [facility] [address] [place] [address] Referral ID Status Reason Start Date Expiration Date V isits Requested Visits Authorized [id number] Closed Specialty Services Required 09/21/2024 09/21/2025 1 1 ICAL EXERCISE SPECIALIST Encounter Details Date Type Department Care Team (Latest Contact Info) Description 09/21/2024 Transcribe Orders [facility] - Centralized Scheduling [address] [place] [id number] Ja Wynne, PHILOSOPHY FACULTY MEMBER-RURAL MAIL CONTRACTOR [address] [place] [address] Multiple sclerosis Social History Tobacco [...] sclerosis documented in this encounter Care Teams Quality Assurance Relationship Specialty Start Date End Date Caden Cuba MD [address] [facility] [address] [place] [address] PCP - General 04/21/15 documented as of this encounter
--- OUTSIDE RECORDS SUMMARY | 2025-01-28 12:40 | XMS_ITS | Clinical Summary ---
Author Organization [facility] Address [address] [facility] [address] Care Team Providers Care Supervisor Offset Plate Preparation Name Role Phone Caden Cuba MD Primary Care Provider Source Comments [facility] and Associated Physician Practices is amultiple site organization consisting of ambulatory clinics and hospital sitesin [place], [place], [place] and [place]. This disclosure is being madepursuant to the Care Everywhere program and may not contain all information available regarding this patient. Last updated 18.[facility] Social History Tobacco Use Types Packs/Day Years [...] age to complete this topic Care Teams Supervisor Offset Plate Preparation Relationship Specialty Start Date End Date Caden Cuba MD [address] [place], [place] [phone] [facility] - General 04/21/15
[2025-01-28 12:51] LABS: Basophils Absolute Auto 0.1 K/mm3 (0.0-0.1); Basophils Percent Auto 0.5 % (0.2-1.2); Eosinophils Absolute Auto 0.1 K/mm3 (0-0.3); Eosinophils Percent Auto 0.5 % (0-4.4); Hematocrit 38.3 % (37.0-47.0); Hemoglobin 12.7 g/dL (12.0-15.0); Immature Granulocyte Absolute 0.02 K/mm3 (0.00-0.031); Immature Granulocyte Percent A 0.2 % (0-0.5); Lymphocytes Absolute Auto 1.29 K/mm3 (0.9-3.2); Mean Corpuscular HGB Conc 33.2 g/dl (32-36); Mean Corpuscular Hemoglobin 31.4 pg (26-34); Mean Corpuscular Volume 94.6 fl (80-100); Mean Platelet Volume 9.8 fl (7.4-10.4); Monocytes Absolute Auto 0.7 K/mm3 (0.1-0.6); Monocytes Percent Auto 7.8 % (2.6-8.5); Neutrophils Absolute Auto 7.1 K/mm3 (1.3-6.7); Platelet Count Result 401 k/mm3 (150-375); Red Blood Count 4.05 M/mm3 (4.2-5.4); Red Cell Distribution Width 13.4 % (11.5-14.5); White Blood Count 9.2 K/mm3 (4.5-10.0)
[2025-01-28 13:01] LABS: Alanine Aminotransferase 16 U/L (6-35); Albumin Level 4.6 g/dL (3.5-5.1); Alkaline Phosphatase 63 U/L (38-126); Anion Gap 9 mmol/L (4-12); Aspartate Amino Transferase 22 U/L (14-36); Bilirubin,Total 0.2 mg/dL (0.2-1.3); Blood Urea Nitrogen 15 mg/dL (7-17); Calcium 9.6 mg/dL (8.4-10.2); Carbon Dioxide 24 mmol/L (22-30); Chloride 105 mmol/L (98-107); Estimated Glomerular Filt Rate > 60; Glucose 91 mg/dL (65-110); Lipase 107 U/L (23-300); Potassium 4.4 mmol/L (3.4-5.0); Sodium 138 mmol/L (137-145)
[2025-01-28 13:03] LABS: INR 0.9; Prothrombin Time 12.9 Seconds (11.1-14.7)
[2025-01-28 13:04] LABS: Add Urine Microscopic? NO; Appearance Urine Clear (Clear); Bilirubin Urine Negative (Negative); Blood Urine Negative (Negative); Color Urine Yellow (Yellow); Glucose Urine UA Negative (Negative); Ketones Urine Negative (Negative); Leukocyte Esterase Ur Negative LEU/UL (Negative); Nitrate Urine Negative (Negative); Protein Urine Negative (Negative); Specific Grav Ur 1.009 (1.001-1.035); Urobilinogen Urine 0.2 mg/dL (<2.0); pH Urine 5.5 (5.0-9.0)
[2025-01-28 13:07] LABS: D Dimer < 0.27 ug/mL (<0.48)
[2025-01-28] MEDS: methylPREDNISolone SOD SUCC 125 MG VIAL 250 MG IV PUSH ×3 (13:26→23:23)
[2025-01-28 14:10] LABS: BEDSIDEPREGUCG Negative (Negative)
--- NOTE | 2025-01-28 15:25 | WPDNEURCNPN ---
Assessment and Plan Assessment and plan (1) Multiple sclerosis exacerbation: Code(s): G35 - Multiple sclerosis Status: Acute Plan The patient has a extensive the plaques noted in the brain and spinal cord. She has once again deteriorated on. Unfortunately she has not been able to get the medication due to her insurance problems. I would suggest to give her a Solu-Medrol pulse therapy and a course of physical therapy to help ambulate her. This time the course of therapy should probably be given for 1 week. We should try to get her some help from pharmacy [facility] since her insurance is not helping her at all for disease modifying therapy. I will suggest Kesimpta injections once a month after we do some baseline studies on her. I shall speak to her further about it to see if he can arrange it. Consult date: 01/28/25 HPI: Cory Magallanes is a 45 year old female With history of multiple sclerosis with extensive involvement of the spinal cord as well as brain presented with the further deterioration in the strength in her upper and lower limbs. She has a feeling of the lack of sensation from the lower thoracic area or below the breast area. She also has some bladder disturbance. She has some weakness in the upper limbs also. She was treated with Solu-Medrol pulse therapy a few months ago with some benefit her condition. She lives with a boyfriend. She has difficulty getting around. She has not been on any disease modifying therapy for multiple sclerosis for quite some time and she has been battling with the insurance in this regard. She was seen last in my office in September. Previous records were reviewed. Review of Systems Review of Systems: No recent febrile illness or trauma or injuries. Other symptoms are reported as above. No other symptoms reported PMFSH Past Medical History Medical History Anxiety Abnormal protein electrophoresis Tobacco dependence Multiple sclerosis Surgical History Surgical History (Updated 11/11/24 @ 07:10 by José Miguel Rose MD) H/O colonoscopy History of tubal ligation Family History Family History Other Unknown family medical history Social History Social History Social History: Surrogate medical decision maker: Arnav Ray, significant other. Code status: Full code. Smoking packs per day: 1 Smoking cigarettes per day: 20.0 Years smoked: 25 Smoking pack-years: 25.00 Smoking status: Current every day smoker Tobacco type: cigarettes Alcohol intake: current Drinks per week: 2 Alcohol use details: ocassional Substance use: never Substance use type: does not use Do You Feel Safe in your Home?: Yes Lack of Transportation: No Lack of Food: Never True Current Housing: I Have Housing Concerned About Future Housing: No Difficulty Paying Gas/Electric Bills: No Difficulty Paying for Meds: No Currently Unemployed: No Education: High School Diploma/GED Difficulty w/ Childcare or Family Care: No Living arrangements: with family Spiritual care concerns: No Meds Home Medications and Allergies Home Medications ?Medication ?Instructions ?Recorded ?Confirmed ?Type ferrous sulfate 325 mg (65 mg 325 mg PO DAILY 09/20/24 11/11/24 History iron) tablet (FeroSul) ibuprofen 400 mg tablet 400 mg PO Q6H PRN Pain 09/20/24 10/27/24 History amitriptyline 25 mg tablet 25 mg PO QHS #90 tabs 10/07/24 11/11/24 Rx dimethyl fumarate 120 mg (14)-240 See Rx Instructions PO PER PKG DIR 12/28/24 Rx mg (46) capsule,delayed release #60 caps (Tecfidera) Allergies Allergy/AdvReac Type Severity Reaction Status Date / Time No Known Allergies Allergy Unknown Verified 01/28/25 11:22 Vital Signs Vital Signs - 24 hr 01/28/25 11:30 01/28/25 11:42 01/28/25 11:43 Temperature 97.9 F Pulse Rate 133 H 113 H 110 H Respiratory Rate 16 16 16 Blood Pressure 162/110 H 148/125 H Pulse Oximetry 100 100 100 Oxygen Delivery Room Air 01/28/25 11:45 01/28/25 11:46 01/28/25 12:00 Temperature Pulse Rate 113 H 112 H 100 Respiratory Rate 24 H 24 H 18 Blood Pressure 149/113 H 140/102 H Pulse Oximetry 100 100 100 Oxygen Delivery 01/28/25 12:01 01/28/25 12:15 01/28/25 12:16 Temperature Pulse Rate 98 102 H 92 Respiratory Rate 19 18 16 Blood Pressure 157/111 H Pulse Oximetry 100 100 100 Oxygen Delivery 01/28/25 12:30 01/28/25 12:31 01/28/25 12:45 Temperature Pulse Rate 99 99 98 Respiratory Rate 20 19 18 Blood Pressure 147/117 H Pulse Oximetry 100 100 100 Oxygen Delivery 01/28/25 12:52 01/28/25 13:00 01/28/25 13:01 Temperature Pulse Rate 93 93 88 Respiratory Rate 21 H 19 19 Blood Pressure 157/96 H 134/102 H Pulse Oximetry 100 100 100 Oxygen Delivery 01/28/25 13:15 01/28/25 13:16 Temperature Pulse Rate 92 99 Respiratory Rate 20 18 Blood Pressure 130/95 H Pulse Oximetry 99 99 Oxygen Delivery Exam Narrative: fully conscious alert oriented to self time place and person. Speech is without articulation. No aphasia or dysarthria. Cranial nerves show pupils were equal react to light. Visual romero by confrontation are normal. There is no facial asymmetry. Face sensation was normal. Tongue was in midline. Other cranial nerves normal limits. Motor system power grade 4 +over 5 in upper limbs power grade 3-4/5 in lower limbs. There is a sensory abnormal feeling below the 7 8 area but she reports that it feels colder below that point but has abnormal feeling above that. No ankle clonus. Reflexes did not show any significant asymmetry at this time no intention tremors or nystagmus. Results Labs 01/28/25 12:45 01/28/25 12:45 Labs: Short CBC 01/28/25 Range/Units 12:45 WBC 9.2 (4.5-10.0) K/mm3 Hgb 12.7 (12.0-15.0) g/dL Hct 38.3 (37.0-47.0) % Plt Count 401 H (150-375) k/mm3 BMP 01/28/25 12:45 Sodium 138 Potassium 4.4 Chloride 105 Carbon Dioxide 24 BUN 15 D Creatinine 0.56 L Glucose 91 Calcium 9.6 Liver Function 01/28/25 Range/Units 12:45 Total Bilirubin 0.2 (0.2-1.3) mg/dL AST 22 (14-36) U/L ALT 16 (6-35) U/L Alkaline Phosphatase 63 (38-126) U/L Albumin 4.6 (3.5-5.1) g/dL Urine 01/28/25 Range/Units 12:52 Urine Color Yellow (Yellow) Urine Appearance Clear (Clear) Urine pH 5.5 (5.0-9.0) Ur Specific [place] 1.009 (1.001-1.035) Urine Protein Negative (Negative) mg/dL Urine Glucose (UA) Negative (Negative) mg/dL
--- NOTE | 2025-01-28 16:32 | ADMGEN ---
This patient, Cory Magallanes, was admitted to [facility] Surg Room 309-01. Patient/family oriented to hospital policies and general routines including ID bracelet, bed and alarms, visiting hours, pain management, procedures, bathroom and other care routines, personal items, smoking policy, room service/diet, and visiting hours. Information on how to activate the Rapid Response Team has been discussed. Patient/Family are encouraged to report perceived risks to care and to ask questions if they do not understand what they are told or what they should do.
--- NOTE | 2025-01-28 17:36 | P.HP_ITS ---
H&P: HPI History of Present Illness Date/Time: 01/28/25 17:36 Chief Complaint: Weakness, Numbness Narrative: 45 y/o F with PMH of multiple sclerosis (extensive, involved brain and spinal cord), iron deficiency anemia, and anxiety presents here with worsening numbness and weakness. The patient presents here from home for further evaluation of numbness and weakness. She has a history of MS with extensive involvement of the spinal cord as well as the brain. Patient's baseline since September of 2024 is numbness starting just below her sternum, weakness in her bilateral upper and lower extremity, fatigue, and chronic pain. She reports in the last month she has developed worsening paraesthesias, no urgency to urinate (has to go every so often to prompt her bladder), weak stream, no sensation to pass BM, difficulty with ambulation. She describes the paraesthesias as if she is in an ice bath . She is not currently on any daily therapy for multiple sclerosis due to insurance and she has previously trialed 3 types of disease modifying medications around 10 years ago. She developed side effects prompting her to stop the medications after trying each of these meds for multiple months up to year. Has been reluctant to restart medication due to fear of side effects and their effect on her quality of life. Initial VS at presentation: 97.9? F, HR 133 (-> 93), RR 16, 162/110, and 100% on RA. ED workup showed: No leukocytosis, no anemia, no coagulation abnormalities, no significant electrolyte derangements, creatinine 0.56 and GFR >60, TSH 1.2, and UA unremarkable. test negative. Initial EKG showed sinus rhythm, rate 83, consider anterior infarct age indeterminate. When compared to EKG done in 2023, no significant change. Review of Systems Review of Systems: All systems reviewed & are unremarkable except as noted in HPI and below PMFSH Past Medical History Medical History (Updated 01/28/25 @ 19:24 by Aida Jules APRN) Iron deficiency anemia Multiple sclerosis History of colonic polyps Anxiety Abnormal protein electrophoresis Tobacco dependence Surgical History Surgical History H/O colonoscopy History of tubal ligation Family History Family History Other Unknown family medical history Social History Social History Social History: Surrogate medical decision maker: Arnav Ray, significant other. Code status: Full code. Smoking packs per day: 1 Smoking cigarettes per day: 20.0 Years smoked: 30 Smoking pack-years: 30.00 Smoking status: Current every day smoker Tobacco type: cigarettes Alcohol intake: current Drinks per week: 1 Alcohol use details: ocassional Substance use: former Substance use type: marijuana Other substance usage details: has not used in years Do You Feel Safe in your Home?: Yes Lack of Transportation: No Lack of Food: Never True Current Housing: I Have Housing Concerned About Future Housing: No Difficulty Paying Gas/Electric Bills: No Difficulty Paying for Meds: No Currently Unemployed: No Education: Decline to Answer Difficulty w/ Childcare or Family Care: No Living arrangements: with family Spiritual care concerns: No Meds Home Medications and Allergies Home Medications ?Medication ?Instructions ?Recorded ?Confirmed ?Type ferrous sulfate 325 mg (65 mg 325 mg PO DAILY 09/20/24 01/28/25 History iron) tablet (FeroSul) ibuprofen 400 mg tablet 400 mg PO Q6H PRN Pain 09/20/24 01/28/25 History amitriptyline 25 mg tablet 25 mg PO QHS #90 tabs 10/07/24 01/28/25 Rx dimethyl fumarate 120 mg (14)-240 See Rx Instructions PO PER PKG DIR 12/28/24 01/28/25 Rx mg (46) capsule,delayed release #60 caps (Tecfidera) acetaminophen 325 mg tablet 650 mg PO Q4H PRN fever or pain 01/28/25 01/28/25 History (Tylenol) Allergies Allergy/AdvReac Type Severity Reaction Status Date / Time No Known Allergies Allergy Unknown Verified 01/28/25 16:41 Vital Signs Vital Signs - 24 hr 01/28/25 11:30 01/28/25 11:42 01/28/25 11:43 Temperature 97.9 F Pulse Rate 133 H 113 H 110 H Respiratory Rate 16 16 16 Blood Pressure 162/110 H 148/125 H Pulse Oximetry 100 100 100 Oxygen Delivery Room Air 01/28/25 11:45 01/28/25 11:46 01/28/25 12:00 Temperature Pulse Rate 113 H 112 H 100 Respiratory Rate 24 H 24 H 18 Blood Pressure 149/113 H 140/102 H Pulse Oximetry 100 100 100 Oxygen Delivery 01/28/25 12:01 01/28/25 12:15 01/28/25 12:16 Temperature Pulse Rate 98 102 H 92 Respiratory Rate 19 18 16 Blood Pressure 157/111 H Pulse Oximetry 100 100 100 Oxygen Delivery 01/28/25 12:30 01/28/25 12:31 01/28/25 12:45 Temperature Pulse Rate 99 99 98 Respiratory Rate 20 19 18 Blood Pressure 147/117 H Pulse Oximetry 100 100 100 Oxygen Delivery 01/28/25 12:52 01/28/25 13:00 01/28/25 13:01 Temperature Pulse Rate 93 93 88 Respiratory Rate 21 H 19 19 Blood Pressure 157/96 H 134/102 H Pulse Oximetry 100 100 100 Oxygen Delivery 01/28/25 13:15 01/28/25 13:16 01/28/25 13:17 Temperature Pulse Rate 92 99 92 Respiratory Rate 20 18 18 Blood Pressure 130/95 H Pulse Oximetry 99 99 100 Oxygen Delivery 01/28/25 13:30 01/28/25 13:31 01/28/25 13:45 Temperature Pulse Rate 88 101 H 88 Respiratory Rate 15 17 17 Blood Pressure 137/101 H 128/96 H Pulse Oximetry 100 100 99 Oxygen Delivery 01/28/25 13:46 01/28/25 14:00 01/28/25 14:01 Temperature Pulse Rate 86 97 90 Respiratory Rate 17 18 16 Blood Pressure 127/111 H Pulse Oximetry 100 100 100 Oxygen Delivery 01/28/25 14:15 01/28/25 14:16 01/28/25 14:30 Temperature Pulse Rate 93 90 94 Respiratory Rate 18 18 18 Blood Pressure 126/98 H Pulse Oximetry 100 100 100 Oxygen Delivery 01/28/25 14:31 01/28/25 14:45 01/28/25 15:00 Temperature Pulse Rate 88 93 105 H Respiratory Rate 17 17 18 Blood Pressure 132/93 H Pulse Oximetry 100 99 98 Oxygen Delivery 01/28/25 15:01 01/28/25 15:15 01/28/25 15:16 Temperature Pulse Rate 102 H 97 95 Respiratory Rate 18 16 17 Blood Pressure 135/100 H 129/64 Pulse Oximetry 99 99 98 Oxygen Delivery 01/28/25 15:30 01/28/25 15:31 04/10/25 15:45 Temperature Pulse Rate 90 90 92 Respiratory Rate 18 17 16 Blood Pressure 125/88 125/86 Pulse Oximetry 97 96 96 Oxygen Delivery 01/28/25 15:46 Temperature Pulse Rate 93 Respiratory Rate 17 Blood Pressure Pulse Oximetry 96 Oxygen Delivery Exam Narrative: significant weakness in the BLE. Const: General: comfortable and no acute distress Other: , female, nontoxic appearance HENMT: Face/Nose/Sinus: Normal nares present Mouth: Yes moist mucous membranes Eyes: General: appearance normal, both eyes and all related structures Sclera: sclerae normal Pupils: Equal, round and reactive pupils present EOM: EOMs intact bilaterally Resp: Effort & Inspection: normal respiratory effort Auscultation: clear to auscultation bilaterally Cardio: Rate: regular rate Rhythm: regular rhythm Other: S1-S2 present without murmur, rub, ectopy GI: Other: Abdomen soft, nondistended, nontender. Normoactive bowel sounds in all quadrants. Skin: General skin exam: normal color and no rashes or lesions noted Wounds: no wounds Neuro: Other: A&O x4. Significant weakness to bilateral lower extremities, symmetric. Trace weakness to the upper extremities, symmetric. Sensory deficits starting just distal to sternum. Extrem: General: normal to inspection Psych: Mental Status: mental status grossly normal Affect: normal affect Other: Good insight and judgment, very pleasant. H&P: Results Labs Labs: Short CBC 01/28/25 Range/Units 12:45 WBC 9.2 (4.5-10.0) K/mm3 Hgb 12.7 (12.0-15.0) g/dL Hct 38.3 (37.0-47.0) % Plt Count 401 H (150-375) k/mm3 BMP 01/28/25 12:45 Sodium 138 Potassium 4.4 Chloride 105 Carbon Dioxide 24 BUN 15 D Creatinine 0.56 L Glucose 91 Calcium 9.6 Liver Function 01/28/25 Range/Units 12:45 Total Bilirubin 0.2 (0.2-1.3) mg/dL AST 22 (14-36) U/L ALT 16 (6-35) U/L Alkaline Phosphatase 63 (38-126) U/L Albumin 4.6 (3.5-5.1) g/dL Urine 01/28/25 Range/Units 12:52 Urine Color Yellow (Yellow) Urine Appearance Clear (Clear) Urine pH 5.5 (5.0-9.0) Ur Specific [place] 1.009 (1.001-1.035) Urine Protein Negative (Negative) mg/dL Urine Glucose (UA) Negative (Negative) mg/dL Assessment and Plan Assessment and plan (1) Multiple sclerosis exacerbation: Code(s): G35 - Multiple sclerosis Status: Acute Assessment and Plan: Last MRI on file completed on 09/22/2024 which showed greater than 40 lesions of increased T2 weighted signal intensity in the brain. Of these lesions, many are confluent in the periventricular region, several are juxtacortical, and two are infratentorial. (Impression: Worsened white matter lesions in the brain consistent with MS). Last flare in September of 2024 which was treated with steroid pulse therapy. She reports a brief reduction in her symptoms but she did not return to her previous baseline prior to the flare. Neurology consulted for MS exacerbation. Avril FLOYD recommended Solu-Medrol pulse therapy x1 week and physical therapy. Provider spoke with the patient at length about disease modifying therapy, recommended Kesimpta injections QMonthly after baseline studies are completed. Neurology attempting to arrange. Plan Diet: Regular, + dietary supplements GI Prophylaxis: Not currently indicated DVT Prophylaxis: SCDs Lines: Peripheral Code Status: Full code Quality VTE Prophylaxis VTE prophylaxis: mechanical ordered Hospitalist [facility] Advance Care Plan I have confirmed that the patient's Advanced Care Plan is present, code status is documented, or surrogate decision maker is listed in patient medical record.: Yes Medication Reconciliation I have utilized all available resources to obtain, update and review the p atients current medications (includes all prescriptions, OTC, herbals, cannabis, and nutritional supplements).: Yes
[2025-01-28] MEDS: ACETAMINOPHEN 325 MG TABLET 650 MG PO ×2 (18:25→23:23)
[2025-01-29] MEDS: ACETAMINOPHEN 325 MG TABLET 650 MG PO ×4 (05:15→23:21)
[2025-01-29] MEDS: methylPREDNISolone SOD SUCC 125 MG VIAL 250 MG IV PUSH ×4 (05:15→23:20)
[2025-01-29 05:30] VITALS: BP 119/72; PULSE 67; RESP 20; TEMP 36.7; O2SAT 99
--- NOTE | 2025-01-29 07:17 | P.PNIM_ITS ---
Progress Note: A&P Assessment and Plan (1) Multiple sclerosis exacerbation: Code(s): G35 - Multiple sclerosis Status: Acute Assessment and Plan: * Last MRI in 10/13 * Brain MRI: Worsened white matter lesions in the brain, consistent with multiple sclerosis * Thoracic, Lumbar, Cervical Spine MRI: Increase in number and size of multiple T2 hyperintense lesions, Widespread lesions in the thoracic spinal cord * Neurology following, recommend Solu-Medrol pulse therapy x1week * PT/OT eval * On fall precautions (2) Paresthesias: Code(s): R20.2 - Paresthesia of skin Status: Acute Assessment and Plan: * Likely related to MS * Continue IV Solu-medrol * PT/OT eval (3) Tobacco dependence: Code(s): F17.200 - Nicotine dependence, unspecified, uncomplicated Status: Acute Assessment and Plan: * Offered nicotine patch but pt refused Plan Diet: Regular, + dietary supplements GI Prophylaxis: Not currently indicated DVT Prophylaxis: SCDs Lines: Peripheral Code Status: Full code Subjective Date/time seen: 01/29/25 07:17 Interval history: 45 y/o F with PMH of multiple sclerosis (extensive, involved brain and spinal cord), iron deficiency anemia, and anxiety presents here with worsening numbness and weakness. 01/29/2025 Patient sitting comfortably in bed at time of examination. She denies any chest pain, n/v, shortness of breath, or abdominal pain at this time. Neurology following. Recommended Solu-medrol pulse therapy with regular PT/OT evals. Ordered PRN melatonin for sleep assistance. Review of Systems Review of Systems: All systems reviewed & are unremarkable except as noted in HPI and below Exam Narrative: significant weakness in the BLE. Const: General: comfortable and no acute distress Other: , female, nontoxic appearance HENMT: Face/Nose/Sinus: Normal nares present Mouth: Yes moist mucous membranes Eyes: General: appearance normal, both eyes and all related structures Sclera: sclerae normal Pupils: Equal, round and reactive pupils present EOM: EOMs intact bilaterally Resp: Effort & Inspection: normal respiratory effort Auscultation: clear to auscultation bilaterally Cardio: Rate: regular rate Rhythm: regular rhythm Other: S1-S2 present without murmur, rub, ectopy GI: Other: Abdomen soft, nondistended, nontender. Normoactive bowel sounds in all quadrants. Skin: General skin exam: normal color and no rashes or lesions noted Wounds: no wounds Neuro: Cranial nerves: Yes Equal, round and reactive pupils present Other: A&O x4. Significant weakness to bilateral lower extremities, symmetric. Trace weakness to the upper extremities, symmetric. Sensory deficits starting just distal to sternum. Extrem: General: normal to inspection Psych: Mental Status: mental status grossly normal Affect: normal affect Other: Good insight and judgment, very pleasant. Objective Data Vital Signs Vital Signs: Vital Signs - 24 hr 01/28/25 11:30 01/28/25 11:42 01/28/25 11:43 Temperature 97.9 F Pulse Rate 133 H 113 H 110 H Respiratory Rate 16 16 16 Blood Pressure 162/110 H 148/125 H Pulse Oximetry 100 100 100 Oxygen Delivery Room Air 01/28/25 11:45 01/28/25 11:46 01/28/25 12:00 Temperature Pulse Rate 113 H 112 H 100 Respiratory Rate 24 H 24 H 18 Blood Pressure 149/113 H 140/102 H Pulse Oximetry 100 100 100 Oxygen Delivery 01/28/25 12:01 01/28/25 12:15 01/28/25 12:16 Temperature Pulse Rate 98 102 H 92 Respiratory Rate 19 18 16 Blood Pressure 157/111 H Pulse Oximetry 100 100 100 Oxygen Delivery 01/28/25 12:30 01/28/25 12:31 01/28/25 12:45 Temperature Pulse Rate 99 99 98 Respiratory Rate 20 19 18 Blood Pressure 147/117 H Pulse Oximetry 100 100 100 Oxygen Delivery 01/28/25 12:52 01/28/25 13:00 01/28/25 13:01 Temperature Pulse Rate 93 93 88 Respiratory Rate 21 H 19 19 Blood Pressure 157/96 H 134/102 H Pulse Oximetry 100 100 100 Oxygen Delivery 01/28/25 13:15 01/28/25 13:16 01/28/25 13:17 Temperature Pulse Rate 92 99 92 Respiratory Rate 20 18 18 Blood Pressure 130/95 H Pulse Oximetry 99 99 100 Oxygen Delivery 01/28/25 13:30 01/28/25 13:31 01/28/25 13:45 Temperature Pulse Rate 88 101 H 88 Respiratory Rate 15 17 17 Blood Pressure 137/101 H 128/96 H Pulse Oximetry 100 100 99 Oxygen Delivery 01/28/25 13:46 01/28/25 14:00 01/28/25 14:01 Temperature Pulse Rate 86 97 90 Respiratory Rate 17 18 16 Blood Pressure 127/111 H Pulse Oximetry 100 100 100 Oxygen Delivery 01/28/25 14:15 01/28/25 14:16 01/28/25 14:30 Temperature Pulse Rate 93 90 94 Respiratory Rate 18 18 18 Blood Pressure 126/98 H Pulse Oximetry 100 100 100 Oxygen Delivery 01/28/25 14:31 01/28/25 14:45 01/28/25 15:00 Temperature Pulse Rate 88 93 105 H Respiratory Rate 17 17 18 Blood Pressure 132/93 H Pulse Oximetry 100 99 98 Oxygen Delivery 01/28/25 15:01 01/28/25 15:15 01/28/25 15:16 Temperature Pulse Rate 102 H 97 95 Respiratory Rate 18 16 17 Blood Pressure 135/100 H 129/64 Pulse Oximetry 99 99 98 Oxygen Delivery 01/28/25 15:30 01/28/25 15:31 01/28/25 15:45 Temperature Pulse Rate 90 90 92 Respiratory Rate 18 17 16 Blood Pressure 125/88 125/86 Pulse Oximetry 97 96 96 Oxygen Delivery 01/28/25 15:46 01/28/25 20:00 01/28/25 21:00 Temperature 98.4 F Pulse Rate 93 86 Respiratory Rate 17 18 Blood Pressure 122/83 Pulse Oximetry 96 99 Oxygen Delivery Room Air 01/29/25 05:30 Temperature 98.1 F Pulse Rate 67 Respiratory Rate 20 Blood Pressure 119/72 Pulse Oximetry 99 Oxygen Delivery Intake/Output Intake/Output: Intake & Output 01/26/25 01/27/25 01/28/25 01/29/25 23:59 23:59 23:59 23:59 Intake Total 250 550 Balance 250 550 Meds/Results Medications: Active Medications Generic Name Dose Route Start Last Admin Trade Name Freq PRN Reason Stop Dose Admin Acetaminophen 650 mg 01/29/25 00:00 01/29/25 05:15 Acetaminophen 325 Mg Tablet PO 650 mg Q6H [facility] Administration Ferrous Sulfate 325 mg 01/29/25 09:00 Ferrous Sulfate [address] BY MOUTH DAILY DUARTE Ibuprofen 400 mg 01/28/25 19:33 Ibuprofen 400 Mg Tablet PO Q6H PRN Pain 1-3 Methylprednisolone Sodium Succinate 250 mg 01/28/25 12:00 01/29/25 05:15 Methylprednisolone Sod Succ 125 Mg Vial IV PUSH 250 mg Q6HR DUARTE Administration Ondansetron HCl 4 mg 01/28/25 14:43 Ondansetron Inj 4 Mg/2 Ml Vial IV PUSH Q4H PRN Nausea Labs Labs: Laboratory Results - last 24 hr 01/28/25 01/28/25 01/28/25 12:45 12:52 14:08 WBC 9.2 RBC 4.05 L Hgb 12.7 Hct 38.3 MCV 94.6 MCH 31.4 MCHC 33.2 RDW 13.4 Plt Count 401 H MPV 9.8 Immature Gran % (Auto) 0.2 Neut % (Auto) 77.0 H Lymph % (Auto) 14.0 L [place] % (Auto) 7.8 Eos % (Auto) 0.5 Baso % (Auto) 0.5 Lymph # (Auto) 1.29 [place] # (Auto) 0.7 H Eos # (Auto) 0.1 Baso # (Auto) 0.1 Abs Immat Gran (auto) 0.02 Absolute Neuts (auto) 7.1 H Absolute Nucleated RBC 0.000 Nucleated RBC % 0.0 PT 12.9 INR 0.9 APTT 28.0 D-Dimer < 0.27 Sodium 138 Potassium 4.4 Chloride 105 Carbon Dioxide 24 Anion Gap 9 BUN 15 D Creatinine 0.56 L Estim Creat Clear Calc Not Reportable Estimated GFR > 60 Glucose 91 Calcium 9.6 Total Bilirubin 0.2 AST 22 ALT 16 Alkaline Phosphatase 63 Total Protein 7.0 Albumin 4.6 Lipase 107 TSH (Reflex) 1.200 Urine Color Yellow Urine Appearance Clear Urine pH 5.5 Ur Specific [place] 1.009 Urine Protein Negative Urine Glucose (UA) Negative Urine Ketones Negative Ur Blood (Man) Negative Urine Nitrate Negative Urine Bilirubin Negative Urine Urobilinogen 0.2 Leukocyte Esterase Rfl Negative POC Urine HCG, Qual Negative Quality VTE Prophylaxis VTE prophylaxis: mechanical ordered
[2025-01-29 07:48] LABS: Hematocrit 38.8 % (37.0-47.0); Hemoglobin 12.5 g/dL (12.0-15.0); Mean Corpuscular HGB Conc 32.2 g/dl (32-36); Mean Corpuscular Hemoglobin 30.9 pg (26-34); Mean Corpuscular Volume 95.8 fl (80-100); Mean Platelet Volume 10.2 fl (7.4-10.4); Platelet Count Result 441 k/mm3 (150-375); Red Blood Count 4.05 M/mm3 (4.2-5.4); Red Cell Distribution Width 13.5 % (11.5-14.5); White Blood Count 15.1 K/mm3 (4.5-10.0)
[2025-01-29 07:58] LABS: Alanine Aminotransferase 16 U/L (6-35); Albumin Level 4.6 g/dL (3.5-5.1); Alkaline Phosphatase 57 U/L (38-126); Anion Gap 11 mmol/L (4-12); Aspartate Amino Transferase 19 U/L (14-36); Bilirubin,Total 0.4 mg/dL (0.2-1.3); Blood Urea Nitrogen 12 mg/dL (7-17); Calcium 9.5 mg/dL (8.4-10.2); Carbon Dioxide 21 mmol/L (22-30); Chloride 106 mmol/L (98-107); Estimated CRCL calculation 92 ml/min; Estimated Glomerular Filt Rate > 60; Glucose 138 mg/dL (65-110); Potassium 4.1 mmol/L (3.4-5.0); Sodium 138 mmol/L (137-145)
[2025-01-29 08:02] VITALS: BP 116/77; PULSE 91; RESP 12; TEMP 36.4; O2SAT 98
[2025-01-29 08:27] LABS: Band Neutrophils Percent 3 % (0-6); Basophils Percent Manual 0 % (0-1); Eosinophils Percent Manual 0 % (0-4); Lymphocytes Absolute Manual 1.05 K/mm3 (1.1-4.5); Lymphocytes Percent Manual 7 % (18-44); Monocytes Absolute Manual 0.15 K/mm3 (0.1-0.90); Monocytes Percent Manual 1 % (3-9); Neutrophils Absolute Manual 13.89 K/mm3 (1.7-7.2); Neutrophils Percent Manual 89 % (46-73); Total Cells Counted 100
[2025-01-29 08:28] LABS: Hypochromasia 1+; Platelet Estimate Increased (Adequate)
[2025-01-29 08:29] LABS: Schistocytes None Seen
[2025-01-29] MEDS: FERROUS SULFATE 325 MG TABLET DR BY MOUTH (08:31)
[2025-01-29 12:41] VITALS: BMI 17.2
[2025-01-29 13:58] VITALS: BP 132/70; PULSE 85; RESP 16; TEMP 36.8; O2SAT 98
[2025-01-29 20:06] VITALS: BP 122/76; PULSE 78; RESP 15; TEMP 36.2; O2SAT 100
[2025-01-29] MEDS: MELATONIN 3 MG TABLET PO (23:21)
[2025-01-30 06:15] VITALS: BP 125/77; PULSE 72; RESP 20; TEMP 36.4; O2SAT 100
[2025-01-30] MEDS: methylPREDNISolone SOD SUCC 125 MG VIAL 250 MG IV PUSH ×3 (06:19→17:45)
[2025-01-30] MEDS: ACETAMINOPHEN 325 MG TABLET 650 MG PO ×3 (06:25→17:45)
[2025-01-30 06:45] LABS: Basophils Percent Auto 0.1 % (0.2-1.2); Hematocrit 38.7 % (37.0-47.0); Hemoglobin 12.4 g/dL (12.0-15.0); Immature Granulocyte Absolute 0.17 K/mm3 (0.00-0.031); Immature Granulocyte Percent A 0.6 % (0-0.5); Lymphocytes Absolute Auto 1.12 K/mm3 (0.9-3.2); Mean Corpuscular Hemoglobin 30.9 pg (26-34); Mean Corpuscular Volume 96.5 fl (80-100); Mean Platelet Volume 10.2 fl (7.4-10.4); Monocytes Absolute Auto 0.7 K/mm3 (0.1-0.6); Monocytes Percent Auto 2.3 % (2.6-8.5); Neutrophils Absolute Auto 25.8 K/mm3 (1.3-6.7); Platelet Count Result 459 k/mm3 (150-375); Red Blood Count 4.01 M/mm3 (4.2-5.4); Red Cell Distribution Width 13.7 % (11.5-14.5); White Blood Count 27.8 K/mm3 (4.5-10.0)
[2025-01-30 07:05] LABS: Albumin Level 4.8 g/dL (3.5-5.1); Alkaline Phosphatase 53 U/L (38-126); Anion Gap 13 mmol/L (4-12); Aspartate Amino Transferase 22 U/L (14-36); Bilirubin,Total 0.3 mg/dL (0.2-1.3); Blood Urea Nitrogen 16 mg/dL (7-17); Carbon Dioxide 22 mmol/L (22-30); Chloride 105 mmol/L (98-107); Estimated CRCL calculation 82 ml/min; Estimated Glomerular Filt Rate > 60; Glucose 131 mg/dL (65-110); Potassium 4.1 mmol/L (3.4-5.0); Sodium 140 mmol/L (137-145)
[2025-01-30 07:08] LABS: Alanine Aminotransferase 27 U/L (6-35)
--- NOTE | 2025-01-30 07:23 | P.PNIM_ITS ---
Progress Note: A&P Assessment and Plan (1) Multiple sclerosis exacerbation: Code(s): G35 - Multiple sclerosis Status: Acute Assessment and Plan: * Last MRI in 10/13 * Brain MRI: Worsened white matter lesions in the brain, consistent with multiple sclerosis * Thoracic, Lumbar, Cervical Spine MRI: Increase in number and size of multiple T2 hyperintense lesions, Widespread lesions in the thoracic spinal cord * Neurology following, recommend Solu-Medrol pulse therapy x1week * Continue PT/OT eval * On fall precautions * Day 3 of Solu-Medrol therapy (2) Paresthesias: Code(s): R20.2 - Paresthesia of skin Status: Acute Assessment and Plan: * Likely related to MS * Continue IV Solu-medrol * PT/OT eval (3) Tobacco dependence: Code(s): F17.200 - Nicotine dependence, unspecified, uncomplicated Status: Acute Assessment and Plan: * Offered nicotine patch but pt refused Plan Diet: Regular, + dietary supplements GI Prophylaxis: Not currently indicated DVT Prophylaxis: SCDs Lines: Peripheral Code Status: Full code Time Spent With Patient Time: Subjective Date/time seen: 01/30/25 07:23 Interval history: 45 y/o F with PMH of multiple sclerosis (extensive, involved brain and spinal cord), iron deficiency anemia, and anxiety presents here with worsening numbness and weakness. 01/30/2025 Patient sitting comfortably in bed at time of examination. At this time denies any chest pain, SOB, n/v, or abdominal pain. Still has lower extremity paresthesias but states that the cold water feeling has subsided which she states is when she knows her symptoms are improving. She is continuing to ambulate with minimal assistance. CBC showed rise in WBC but this to be expected on glucocorticoid therapy. Will continue to monitor and maintain Solu-medrol pulse therapy. Review of Systems Review of Systems: All systems reviewed & are unremarkable except as noted in HPI and below Exam Narrative: Improving weakness in the BLE. Const: General: comfortable and no acute distress Other: , female, nontoxic appearance HENMT: Face/Nose/Sinus: Normal nares present Mouth: Yes moist mucous membranes Eyes: General: appearance normal, both eyes and all related structures Sclera: sclerae normal Pupils: Equal, round and reactive pupils present EOM: EOMs intact bilaterally Resp: Effort & Inspection: normal respiratory effort Auscultation: clear to auscultation bilaterally Cardio: Rate: regular rate Rhythm: regular rhythm Other: S1-S2 present without murmur, rub, ectopy GI: Other: Abdomen soft, nondistended, nontender. Normoactive bowel sounds in all quadrant s. Skin: General skin exam: normal color and no rashes or lesions noted Wounds: no wounds Neuro: Cranial nerves: Yes Equal, round and reactive pupils present Other: A&O x4. Improving weakness to bilateral lower extremities, symmetric. No weakness in the upper extremities. Sensory deficits starting just distal to sternum. Extrem: General: normal to inspection Psych: Mental Status: mental status grossly normal Affect: normal affect Other: Good insight and judgment, very pleasant. Objective Data Vital Signs Vital Signs: Vital Signs - 24 hr 01/29/25 08:02 01/29/25 11:59 01/29/25 13:56 Temperature 97.6 F Pulse Rate 91 Respiratory Rate 12 Blood Pressure 116/77 Pulse Oximetry 98 Oxygen Delivery Room Air Room Air 01/29/25 13:58 01/29/25 20:00 01/29/25 20:06 Temperature 98.2 F 97.1 F L Pulse Rate 85 78 Respiratory Rate 16 15 Blood Pressure 132/70 122/76 Pulse Oximetry 98 100 Oxygen Delivery Room Air 01/30/25 06:15 Temperature 97.5 F L Pulse Rate 72 Respiratory Rate 20 Blood Pressure 125/77 Pulse Oximetry 100 Oxygen Delivery Intake/Output Intake/Output: Intake & Output 01/27/25 01/28/25 01/29/25 01/30/25 23:59 23:59 23:59 23:59 Intake Total 250 1647 660 Balance 250 1647 660 Meds/Results Medications: Active Medications Generic Name Dose Route Start Last Admin Trade Name Freq PRN Reason Stop Dose Admin Acetaminophen 650 mg 01/29/25 00:00 01/30/25 06:25 Acetaminophen 325 Mg Tablet PO 650 mg Q6H [facility]ARTE Administration Bisacodyl 5 mg 01/29/25 07:46 Bisacodyl 5 Mg Tablet Ec PO QAM PRN Constipation Ferrous Sulfate 325 mg 01/29/25 09:00 01/29/25 08:31 Ferrous Sulfate [address] BY MOUTH 325 mg DAILY [facility]ARTE Administration Ibuprofen 400 mg 01/28/25 19:33 Ibuprofen 400 Mg Tablet PO Q6H PRN Pain 1-3 Melatonin 3 mg 01/29/25 09:24 01/29/25 23:21 Melatonin 3 Mg Tablet PO 3 mg HS PRN Administration Sleep Methylprednisolone Sodium Succinate 250 mg 01/28/25 12:00 01/30/25 06:19 Methylprednisolone Sod Succ 125 Mg Vial IV PUSH 250 mg Q6HR [facility]ARTE Administration Ondansetron HCl 4 mg 01/28/25 14:43 Ondansetron Inj 4 Mg/2 Ml Vial IV PUSH Q4H PRN Nausea Labs Labs: Laboratory Results - last 24 hr 01/29/25 01/30/25 07:20 06:31 WBC 15.1 H RBC 4.05 L Hgb 12.5 Hct 38.8 MCV 95.8 MCH 30.9 MCHC 32.2 RDW 13.5 Plt Count 441 H MPV 10.2 Immature Gran % (Auto) Not Reportable Neut % (Auto) Not Reportable Lymph % (Auto) Not Reportable [place] % (Auto) Not Reportable Eos % (Auto) Not Reportable Baso % (Auto) Not Reportable Lymph # (Auto) Not Reportable [place] # (Auto) Not Reportable Eos # (Auto) Not Reportable Baso # (Auto) Not Reportable Abs Immat Gran (auto) Not Reportable Absolute Neuts (auto) Not Reportable Absolute Nucleated RBC Not Reportable Total Counted 100 Neutrophils % (Manual) 89 H Band Neutrophils % 3 Lymphocytes % (Manual) 7 L Monocytes % (Manual) 1 L Eosinophils % (Manual) 0 Basophils % (Manual) 0 Nucleated RBC % Not Reportable Abs Neuts (Manual) 13.89 H Abs Lymphs (Manual) 1.05 L Abs Monocytes (Manual) 0.15 Absolute Eos (Manual) 0.00 L Abs Basophils (Manual) 0.00 Platelet Estimate Increased Hypochromasia 1+ Schistocytes None seen Sodium 138 140 Potassium 4.1 4.1 Chloride 106 105 Carbon Dioxide 21 L 22 Anion Gap 11 13 H BUN 12 16 Creatinine 0.50 L 0.57 L Estim Creat Clear Calc 92 82 Estimated GFR > 60 > 60 Glucose 138 H 131 H Calcium 9.5 10.0 Total Bilirubin 0.4 0.3 AST 19 22 ALT 16 27 Alkaline Phosphatase 57 53 Total Protein 7.0 7.0 Albumin 4.6 4.8 Quality VTE Prophylaxis VTE prophylaxis: mechanical ordered
[2025-01-30 07:57] LABS: Large Platelets Present; Platelet Estimate Increased (Adequate); Schistocytes None Seen
[2025-01-30] MEDS: FERROUS SULFATE 325 MG TABLET DR BY MOUTH (08:52)
[2025-01-30 09:48] VITALS: O2SAT 99
[2025-01-30 14:00] VITALS: BP 127/79; PULSE 56; RESP 14; TEMP 36.7; O2SAT 98
[2025-01-30 20:05] VITALS: BP 111/59; PULSE 64; RESP 18; TEMP 36.4; O2SAT 98
[2025-01-30] MEDS: BISACODYL 5 MG TABLET EC PO (21:32)
[2025-01-30] MEDS: MELATONIN 3 MG TABLET PO (21:32)
[2025-01-31] MEDS: ACETAMINOPHEN 325 MG TABLET 650 MG PO ×4 (00:27→23:21)
[2025-01-31] MEDS: methylPREDNISolone SOD SUCC 125 MG VIAL 250 MG IV PUSH ×2 (00:27→05:45)
[2025-01-31 05:03] VITALS: BP 126/79; PULSE 66; RESP 16; TEMP 36.2; O2SAT 100
--- NOTE | 2025-01-31 07:43 | P.PNIM_ITS ---
Progress Note: A&P Assessment and Plan (1) Multiple sclerosis exacerbation: Code(s): G35 - Multiple sclerosis Status: Acute Assessment and Plan: * Last MRI in 10/13 * Brain MRI: Worsened white matter lesions in the brain, consistent with multiple sclerosis * Thoracic, Lumbar, Cervical Spine MRI: Increase in number and size of multiple T2 hyperintense lesions, Widespread lesions in the thoracic spinal cord * Neurology following, recommend Solu-Medrol pulse therapy x1week (started on 01/28) * Continue PT/OT eval * On fall precautions (2) Paresthesias: Code(s): R20.2 - Paresthesia of skin Status: Acute Assessment and Plan: * Likely related to MS * Continue IV Solu-medrol * PT/OT eval (3) Tobacco dependence: Code(s): F17.200 - Nicotine dependence, unspecified, uncomplicated Status: Acute Assessment and Plan: * Offered nicotine patch but pt refused Plan Diet: Regular, + dietary supplements GI Prophylaxis: Not currently indicated DVT Prophylaxis: SCDs Lines: Peripheral Code Status: Full code Time Spent With Patient Time: Subjective Date/time seen: 01/31/25 07:43 Interval history: 45 y/o F with PMH of multiple sclerosis (extensive, involved brain and spinal cord), iron deficiency anemia, and anxiety presents here with worsening numbness and weakness. 01/31/2025 Patient sitting comfortably in bed at time of examination. At this time denies any chest pain, SOB, n/v, or abdominal pain. Pt states that her paresthesia is the same as it was yesterday. Will plan to continue steroids and monitor. Review of Systems Review of Systems: All systems reviewed & are unremarkable except as noted in HPI and below Exam Narrative: Improving weakness in the BLE. Const: General: comfortable and no acute distress Other: , female, nontoxic appearance HENMT: Face/Nose/Sinus: Normal nares present Mouth: Yes moist mucous membranes Eyes: General: appearance normal, both eyes and all related structures Sclera: sclerae normal Pupils: Equal, round and reactive pupils present EOM: EOMs intact bilaterally Resp: Effort & Inspection: normal respiratory effort Auscultation: clear to auscultation bilaterally Cardio: Rate: regular rate Rhythm: regular rhythm Other: S1-S2 present without murmur, rub, ectopy GI: Other: Abdomen soft, nondistended, nontender. Normoactive bowel sounds in all quadrants. Skin: General skin exam: normal color and no rashes or lesions noted Wounds: no wounds Neuro: Cranial nerves: Yes Equal, round and reactive pupils present Other: A&O x4. Improving weakness to bilateral lower extremities, symmetric. No weakness in the upper extremities. Sensory deficits starting just distal to sternum. Extrem: General: normal to inspection Psych: Mental Status: mental status grossly normal Affect: normal affect Other: Good insight and judgment, very pleasant. Objective Data Vital Signs Vital Signs: Vital Signs - 24 hr 01/30/25 08:45 01/30/25 09:48 01/30/25 14:00 Temperature 98.1 F Pulse Rate 56 L Respiratory Rate 14 Blood Pressure 127/79 Pulse Oximetry 99 98 Oxygen Delivery Room Air Room Air 01/30/25 20:05 01/31/25 05:03 Temperature 97.5 F L 97.1 F L Pulse Rate 64 66 Respiratory Rate 18 16 Blood Pressure 111/59 L 126/79 Pulse Oximetry 98 100 Oxygen Delivery Intake/Output Intake/Output: Intake & Output 01/28/25 01/29/25 01/30/25 01/31/25 23:59 23:59 23:59 23:59 Intake Total 250 1647 2410 300 Balance 250 1647 2410 300 Meds/Results Medications: Active Medications Generic Name Dose Route Start Last Admin Trade Name Freq PRN Reason Stop Dose Admin Acetaminophen 650 mg 01/29/25 00:00 01/31/25 05:45 Acetaminophen 325 Mg Tablet PO 650 mg Q6H DUARTE Administration Bisacodyl 5 mg 01/29/25 07:46 01/30/25 21:32 Bisacodyl 5 Mg Tablet Ec PO 5 mg QAM PRN Administration Constipation Ferrous Sulfate 325 mg 01/29/25 09:00 01/30/25 08:52 Ferrous Sulfate [address] BY MOUTH 325 mg DAILY DUARTE Administration Ibuprofen 400 mg 01/28/25 19:33 Ibuprofen 400 Mg Tablet PO Q6H PRN Pain 1-3 Melatonin 3 mg 01/29/25 09:24 01/30/25 21:32 Melatonin 3 Mg Tablet PO 3 mg HS PRN Administration Sleep Methylprednisolone Sodium Succinate 250 mg 01/28/25 12:00 01/31/25 05:45 Methylprednisolone Sod Succ 125 Mg Vial IV PUSH 250 mg Q6HR DUARTE Administration Ondansetron HCl 4 mg 01/28/25 14:43 Ondansetron Inj 4 Mg/2 Ml Vial IV PUSH Q4H PRN Nausea Labs Labs: Laboratory Results - last 24 hr 01/30/25 06:31 WBC 27.8 H RBC 4.01 L Hgb 12.4 Hct 38.7 MCV 96.5 MCH 30.9 MCHC 32.0 RDW 13.7 Plt Count 459 H MPV 10.2 Immature Gran % (Auto) 0.6 H Neut % (Auto) 93.0 H Lymph % (Auto) 4.0 L Glasscock % (Auto) 2.3 L Eos % (Auto) 0.0 Baso % (Auto) 0.1 L Lymph # (Auto) 1.12 Glasscock # (Auto) 0.7 H Eos # (Auto) 0.0 Baso # (Auto) 0.0 Abs Immat Gran (auto) 0.17 H Absolute Neuts (auto) 25.8 H Absolute Nucleated RBC 0.000 Band Neutrophils % Not Reportable Nucleated RBC % 0.0 Platelet Estimate Increased Large Platelets Present Schistocytes None seen Quality VTE Prophylaxis VTE prophylaxis: mechanical ordered
[2025-01-31 08:00] VITALS: PULSE 66; RESP 16; O2SAT 100
[2025-01-31] MEDS: FERROUS SULFATE 325 MG TABLET DR BY MOUTH (10:11)
[2025-01-31 14:00] VITALS: BP 122/79; PULSE 61; RESP 14; TEMP 36.6; O2SAT 99
[2025-01-31 21:25] VITALS: BP 126/82; PULSE 60; RESP 16; TEMP 36.8; O2SAT 99
[2025-01-31] MEDS: MELATONIN 3 MG TABLET PO (23:21)
[2025-01-31] MEDS: BISACODYL 5 MG TABLET EC PO (23:21)
[2025-02-01] MEDS: ACETAMINOPHEN 325 MG TABLET 650 MG PO ×4 (05:10→22:58)
[2025-02-01 05:54] VITALS: BP 133/89; PULSE 56; RESP 18; TEMP 36.6; O2SAT 100
--- NOTE | 2025-02-01 07:05 | P.PNIM_ITS ---
Progress Note: A&P Assessment and Plan (1) Multiple sclerosis exacerbation: Code(s): G35 - Multiple sclerosis Status: Acute Assessment and Plan: * Last MRI in 10/13 * Brain MRI: Worsened white matter lesions in the brain, consistent with multiple sclerosis * Thoracic, Lumbar, Cervical Spine MRI: Increase in number and size of multiple T2 hyperintense lesions, Widespread lesions in the thoracic spinal cord * Neurology following, recommend Solu-Medrol pulse therapy x1week (started on 01/28) * Continue PT/OT eval * On fall precautions * Day 4 of Solu-medrol pulse therapy (2) Paresthesias: Code(s): R20.2 - Paresthesia of skin Status: Acute Assessment and Plan: * Likely related to MS * Continue IV Solu-medrol * PT/OT eval (3) Tobacco dependence: Code(s): F17.200 - Nicotine dependence, unspecified, uncomplicated Status: Acute Assessment and Plan: * Offered nicotine patch but pt refused Plan Diet: Regular, + dietary supplements GI Prophylaxis: Not currently indicated DVT Prophylaxis: SCDs Lines: Peripheral Code Status: Full code Time Spent With Patient Time: Subjective Date/time seen: 02/01/25 07:05 Interval history: 45 y/o F with PMH of multiple sclerosis (extensive, involved brain and spinal cord), iron deficiency anemia, and anxiety presents here with worsening numbness and weakness. 02/01/2025 Patient sitting comfortably in bed at time of examination. At this time denies any chest pain, SOB, n/v, or abdominal pain. Day 4 of Steroids. Still reporting typical numbness from sternum down to lower extremities, no changes. Review of Systems Review of Systems: All systems reviewed & are unremarkable except as noted in HPI and below Exam Narrative: Improving weakness in the BLE. Const: General: comfortable and no acute distress Other: , female, nontoxic appearance HENMT: Face/Nose/Sinus: Normal nares present Mouth: Yes moist mucous membranes Eyes: General: appearance normal, both eyes and all related structures Sclera: sclerae normal Pupils: Equal, round and reactive pupils present EOM: EOMs intact bilaterally Resp: Effort & Inspection: normal respiratory effort Auscultation: clear to auscultation bilaterally Cardio: Rate: regular rate Rhythm: regular rhythm Other: S1-S2 present without murmur, rub, ectopy GI: Other: Abdomen soft, nondistended, nontender. Normoactive bowel sounds in all quadrants. Skin: General skin exam: normal color and no rashes or lesions noted Wounds: no wounds Neuro: Cranial nerves: Yes Equal, round and reactive pupils present Other: A&O x4. Improving weakness to bilateral lower extremities, symmetric. No weakness in the upper extremities. Sensory deficits starting just distal to sternum. Extrem: General: normal to inspection Psych: Mental Status: mental status grossly normal Affect: normal affect Other: Good insight and judgment, very pleasant. Objective Data Vital Signs Vital Signs: Vital Signs - 24 hr 01/31/25 08:00 01/31/25 14:00 01/31/25 20:00 Temperature 97.8 F Pulse Rate 66 61 Respiratory Rate 16 14 Blood Pressure 122/79 Pulse Oximetry 100 99 Oxygen Delivery Room Air Room Air 01/31/25 21:25 02/01/25 05:54 Temperature 98.2 F 97.9 F Pulse Rate 60 56 L Respiratory Rate 16 18 Blood Pressure 126/82 133/89 Pulse Oximetry 99 100 Oxygen Delivery Intake/Output Intake/Output: Intake & Output 01/29/25 01/30/25 01/31/25 02/01/25 23:59 23:59 23:59 23:59 Intake Total 1647 2410 1100 400 Output Total 2 Balance 1647 2410 1100 398 Meds/Results Medications: Active Medications Generic Name Dose Route Start Last Admin Trade Name Freq PRN Reason Stop Dose Admin Acetaminophen 650 mg 01/29/25 00:00 02/01/25 05:10 Acetaminophen 325 Mg Tablet PO 650 mg Q6H DUARTE Administration Bisacodyl 5 mg 01/29/25 07:46 01/31/25 23:21 Bisacodyl 5 Mg Tablet Ec PO 5 mg QAM PRN Administration Constipation Ferrous Sulfate 325 mg 01/29/25 09:00 01/31/25 10:11 Ferrous Sulfate [address] BY MOUTH 325 mg DAILY DUARTE Administration Methylprednisolone Sodium 100 mls @ 200 mls/hr 01/31/25 18:00 02/01/25 05:40 Succinate 250 mg/ Dextrose IVPB Infused Q6HR DUARTE Infusion Ibuprofen 400 mg 01/28/25 19:33 Ibuprofen 400 Mg Tablet PO Q6H PRN Pain 1-3 Melatonin 3 mg 01/29/25 09:24 01/31/25 23:21 Melatonin 3 Mg Tablet PO 3 mg HS PRN Administration Sleep Ondansetron HCl 4 mg 01/28/25 14:43 Ondansetron Inj 4 Mg/2 Ml Vial IV PUSH Q4H PRN Nausea Quality VTE Prophylaxis VTE prophylaxis: mechanical ordered
[2025-02-01] MEDS: FERROUS SULFATE 325 MG TABLET DR BY MOUTH (08:48)
[2025-02-01] MEDS: BISACODYL 5 MG TABLET EC PO (09:00)
--- NOTE | 2025-02-01 12:16 | WPDNEUROPN ---
Progress Note: A&P Assessment and Plan (1) Multiple sclerosis exacerbation: Code(s): G35 - Multiple sclerosis Status: Acute Plan The patient is to work with a physical therapist and I did point to her that she is certain year normal strength. If she wishes to have IV Solu-Medrol at home that certainly can be arranged but I also had give her form trying to get help from the manufacture for Kesimpta which can be given monthly subcutaneous injection of the disease modifying therapy. She does need to work with the physical therapist and I strongly recommended to prevent future falls. Subjective Date/time seen: 02/01/25 12:16 Interval history: The patient is a 45-year-old with history of a chronic multiple sclerosis undergoing treatment with the Solu-Medrol pulse therapy. She told me that she does require physical therapy since he is able to walk around and I had some discussion with her regarding the value of therapy given the chronic findings which time to time exacerbate. The feeling of numbness from the midthoracic spine somewhat less than before. Patient's [id number] was present the time of the evaluation. Review of Systems Review of Systems: All systems reviewed & are unremarkable except as noted in HPI and below Exam Narrative: Mental status and cranial nerve examination is unremarkable. She has difficulty getting on the tiptoes and heels and I pointed out to her side she continues to have difficulties as before. And she needs to work with a physical therapist. Objective Data Vital Signs Vital Signs: Vital Signs - 24 hr 01/31/25 14:00 01/31/25 20:00 01/31/25 21:25 Temperature 97.8 F 98.2 F Pulse Rate 61 60 Respiratory Rate 14 16 Blood Pressure 122/79 126/82 Pulse Oximetry 99 99 Oxygen Delivery Room Air 02/01/25 05:54 02/01/25 08:00 Temperature 97.9 F Pulse Rate 56 L Respiratory Rate 18 Blood Pressure 133/89 Pulse Oximetry 100 Oxygen Delivery Room Air Intake/Output Intake/Output: Intake & Output 01/29/25 01/30/25 01/31/25 02/01/25 23:59 23:59 23:59 23:59 Intake Total 1647 2410 1100 400 Output Total 2 Balance 1647 2410 1100 398 Meds/Results Medications: Active Medications Generic Name Dose Route Start Last Admin Trade Name Freq PRN Reason Stop Dose Admin Acetaminophen 650 mg 01/29/25 00:00 02/01/25 05:10 Acetaminophen 325 Mg Tablet PO 650 mg Q6H DUARTE Administration Bisacodyl 5 mg 01/29/25 07:46 02/01/25 09:00 Bisacodyl 5 Mg Tablet Ec PO 5 mg QAM PRN Administration Constipation Ferrous Sulfate 325 mg 01/29/25 09:00 02/01/25 08:48 Ferrous Sulfate [address] BY MOUTH 325 mg DAILY DUARTE Administration Methylprednisolone Sodium 100 mls @ 200 mls/hr 01/31/25 18:00 02/01/25 05:40 Succinate 250 mg/ Dextrose IVPB Infused Q6HR DUARTE Infusion Ibuprofen 400 mg 01/28/25 19:33 Ibuprofen 400 Mg Tablet PO Q6H PRN Pain 1-3 Melatonin 3 mg 01/29/25 09:24 01/31/25 23:21 Melatonin 3 Mg Tablet PO 3 mg HS PRN Administration Sleep Ondansetron HCl 4 mg 01/28/25 14:43 Ondansetron Inj 4 Mg/2 Ml Vial IV PUSH Q4H PRN Nausea
[2025-02-01 14:00] VITALS: BP 143/86; PULSE 59; RESP 20; TEMP 37; O2SAT 99
[2025-02-01 19:55] VITALS: BP 148/93; PULSE 54; RESP 18; TEMP 36.3; O2SAT 100
[2025-02-01] MEDS: MELATONIN 3 MG TABLET PO (22:59)
[2025-02-02 04:45] VITALS: BP 142/82; PULSE 64; RESP 18; TEMP 36.8; O2SAT 99
[2025-02-02] MEDS: ACETAMINOPHEN 325 MG TABLET 650 MG PO ×2 (05:20→12:56)
[2025-02-02 08:00] VITALS: O2SAT 100
[2025-02-02] MEDS: FERROUS SULFATE 325 MG TABLET DR BY MOUTH (08:14)
[2025-02-02] MEDS: IBUPROFEN 400 MG TABLET PO (08:18)
--- NOTE | 2025-02-02 11:54 | P.DS_ITS ---
DS: Admitting Diagnosis Discharge Date Admitting Diagnosis MS Exacerbation DS: Discharge Diagnosis Discharge Diagnosis (1) Multiple sclerosis exacerbation: Code(s): G35 - Multiple sclerosis Status: Acute (2) Paresthesias: Code(s): R20.2 - Paresthesia of skin Status: Acute (3) Tobacco dependence: Code(s): F17.200 - Nicotine dependence, unspecified, uncomplicated Status: Acute DS: Summary Hospital Course Reason for hospitalization: exacerbation of multiple sclerosis Hospital Course: 45 y/o F with PMH of multiple sclerosis (extensive, involved brain and spinal cord), iron deficiency anemia, and anxiety presents here with worsening numbness and weakness. The patient presents here from home for further evaluation of numbness and weakness. She has a history of MS with extensive involvement of the spinal cord as well as the brain. Patient's baseline since September of 2024 is numbness starting just below her sternum, weakness in her bilateral upper and lower extremity, fatigue, and chronic pain. She reports in the last month she has developed worsening paraesthesias, no urgency to urinate (has to go every so often to prompt her bladder), weak stream, no sensation to pass BM, difficulty with ambulation. She describes the paraesthesias as if she is in an ice bath . She is not currently on any daily therapy for multiple sclerosis due to insurance and she has previously trialed 3 types of disease modifying med ications around 10 years ago. She developed side effects prompting her to stop the medications after trying each of these meds for multiple months up to year. Has been reluctant to restart medication due to fear of side effects and their effect on her quality of life. Initial VS at presentation: 97.9? F, HR 133 (-> 93), RR 16, 162/110, and 100% on RA. ED workup showed: No leukocytosis, no anemia, no coagulation abnormalities, no significant electrolyte derangements, creatinine 0.56 and GFR >60, TSH 1.2, and UA unremarkable. test negative. Initial EKG showed sinus rhythm, rate 83, consider anterior infarct age indeterminate. When compared to EKG done in 2023, no significant change. Neurology consulted and recommended an initial 7 day Solu Medrol pulse therapy. Through the first 5 days, the patient was able to work with PT/OT and able to get to the point where she was ambulating independently without complications. Vital signs remained stable throughout visit and the numbness/tingling she was experiencing upon admission had significantly improved. On day 4 of 7 of the pulse therapy, the patient expressed great interest in being discharge and she had a discussion with Dr. Kim of Neurology that if her symptoms continued to improve after the 5th dose of Solu-Medrol that she may be cleared for discharge with a Prednisone taper from a neurology standpoint. On day 5, she remained hemodynamically stable with improving symptoms and was able to ambulate independently. She is otherwise stable for discharge and given a prescription for a prednisone taper that starts out at 80mg and decreases by 10mg every 2 days. Plan for discharge at this time. Status at Discharge Functional status at discharge: independent ambulation Overall status at discharge: patient is back to baseline Time Spent with Patient Time attestation: Total time spent providing and/or coordinating discharge services: 45 Exam Narrative: Improving weakness in the BLE. Const: General: comfortable and no acute distress Other: , female, nontoxic appearance HENMT: Face/Nose/Sinus: Normal nares present Mouth: Yes moist mucous membranes Eyes: General: appearance normal, both eyes and all related structures Sclera: sclerae normal Pupils: Equal, round and reactive pupils present EOM: EOMs intact bilaterally Resp: Effort & Inspection: normal respiratory effort Auscultation: clear to auscultation bilaterally Cardio: Rate: regular rate Rhythm: regular rhythm Other: S1-S2 present without murmur, rub, ectopy GI: Other: Abdomen soft, nondistended, nontender. Normoactive bowel sounds in all quadrants. Skin: General skin exam: normal color and no rashes or lesions noted Wounds: no wounds Neuro: Cranial nerves: Yes Equal, round and reactive pupils present Other: A&O x4. Improving weakness to bilateral lower extremities, symmetric. No weakness in the upper extremities. Sensory deficits starting just distal to sternum, chronic Extrem: General: normal to inspection Psych: Mental Status: mental status grossly normal Affect: normal affect Other: Good insight and judgment, very pleasant. Discharge Plan Discharge Attending physician on discharge: Augustine Wolff Consulting providers: Alonso Mackenzie Discharging Clinician: Augustine Wolff Anticipated Discharge Date/Time: 02/02/25 11:36 Patient Disposition: Home Activity: as tolerated Diet: as tolerated Discharge Instructions: Discharge disposition: Stable Take medications as prescribed. I wrote out instructions on your medication prescription. Start taking 80mg (8 tablets) total tomorrow and take for 2 days (this means you will take 80mg on Saturday 02/03 and 02/04). Then take 70mg (7 tablets) for 2 days(on Monday 02/05 and Tuesday 02/06). Then take 60mg for 2 days and so forth. You will be at each dose for 2 days each then decreased by 10mg the next day. Do this for the entire amount prescribed. Monitor blood pressures Take caution while standing, rising, or moving Change positions slowly taking a break between each position change If you standing feel dizzy sit back down and take a break Encouraged to continue with yearly vaccinations Return to the emergency department if he developed sudden shortness of breath, chest pain, nausea, vomiting, upset stomach or intractable diarrhea Return to the emergency department if you develop fever greater than 101.5 Follow-up with the primary care physician within 1-2 weeks Also follow up with Dr. Mackenzie of Neurology regarding starting a new medication for your MS diagnosis. Thank you for [facility] for your healthcare needs Patient Instructions: Antibiotic Form Patient Language: Hong Konger Stand Alone Forms: General Discharge Information Follow-up/Referrals: Caden Cuba MD [Primary Care Provider] - Alonso Mackenzie MD [Physician] - Discharge Medications: New prednisone 10 mg tablet 10 mg PO DAILY 16 Days Qty: 16 0RF Rx Instructions: Start taking 80mg (8 tablets) total tomorrow and take for 2 days (this means you will take 80mg on Saturday 02/03 and 02/04). Then take 70mg (7 tablets) for 2 days(on Monday 02/05 and Tuesday 02/06). Then take 60mg for 2 days and so forth. You will be at each dose for 2 days each then decreased by 10mg the next day. Do this for the entire amount Continued amitriptyline 25 mg tablet 25 mg PO QHS Qty: 90 1RF Rx Instructions: may increase to 2 tablets at bedtime if necessary ferrous sulfate [FeroSul] 325 mg (65 mg iron) tablet 325 mg PO DAILY ibuprofen 400 mg Tablet 400 mg PO Q6H PRN (Reason: Pain) acetaminophen [Tylenol] 325 mg tablet 650 mg PO Q4H PRN (Reason: fever or pain) dimethyl fumarate [Tecfidera] 120 mg (14)- 240 mg (46) capsule,delayed release(DR/EC) See Rx Instructions PO PER PKG DIR Qty: 60 6RF Rx Instructions: PO PER PKG DIR Date of admission: 01/28/25 15:35 Primary Care Provider: Caden Cuba Admitting Provider: Sonny Alvarez Attending physician on admission: Augustine Wolff Condition: Stable Quality VTE Prophylaxis VTE prophylaxis: mechanical ordered
[2025-02-02 14:00] VITALS: BP 137/84; PULSE 66; RESP 18; TEMP 36.7; O2SAT 99
== END 2025-02-02 14:06 | disposition home or self-care (01) | DRG 43 ==
LOC: ANHED 14:46 → ANH3MEDSUR 15:41
PROVIDERS: Admitting Provider Internal Medicine; Emergency Provider Student in an Organized Health Care Education/Training Program; PCP Family Medicine; Visit Provider Physician Assistant
DX: G35 Multiple sclerosis (principal); R20.2 Paresthesia of skin; D50.9 Iron deficiency anemia, unspecified; F41.9 Anxiety disorder, unspecified; D75.839 Thrombocytosis, unspecified; F17.210 Nicotine dependence, cigarettes, uncomplicated; Z91.148 Patient's other noncompliance with medication regimen for other reason
CPT/HCPCS: 36415; 80053; 81003; 81025; 83690; 84443; 85025; 85380; 85610; 85730; 93005; 96374; 96375; 97116; 97161; 97165; 99285; A9270; J2919

== ENCOUNTER 2025-02-25 15:14 | Outpatient (CLI) | payer OTHER, SELFPAY ==
--- OUTSIDE RECORDS SUMMARY | 2025-02-25 15:16 | XMS_ITS | Clinical Summary ---
Author Organization [facility] Address [address] [place] [address] Care Team Providers Care Admissions Nurse Name Role Phone Caden Cuba MD Primary Care Provider Source Comments [facility] and Associated Physician Practices is amultiple site organization consisting of ambulatory clinics and hospital sitesin [place], [place], [place] and [place]. This disclosure is being madepursuant to the Care Everywhere program and may not contain all information available regarding this patient. 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
--- OUTSIDE RECORDS SUMMARY | 2025-02-25 15:16 | XMS_ITS | Clinical Summary ---
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 Gender Identity Not on file Sexual Orientation Not on file Last Filed Vital Signs Vital Sign Reading Time Taken Comments Blood Pressure 124/82 10/01/2024 1:17 PM SENIOR MECHANICAL DESIGNER Pulse 76 10/01/2024 1:17 PM SENIOR MECHANICAL DESIGNER Temperature 36.8 C (98.2 F) 10/01/2024 1:17 PM SENIOR MECHANICAL DESIGNER Respiratory Rate 16 10/01/2024 1:17 PM SENIOR MECHANICAL DESIGNER Oxygen Saturation 98% 10/01/2024 1:17 PM SENIOR MECHANICAL DESIGNER Inhaled Oxygen Concentration - - Weight 50.8 kg (112 lb) 10/01/2024 1:17 PM SENIOR MECHANICAL DESIGNER Height 167.6 cm (5' 6 ) 10/01/2024 1:17 PM SENIOR MECHANICAL DESIGNER Body Mass Index 18.08 10/01/2024 1:17 PM SENIOR MECHANICAL DESIGNER Plan of Treatment Upcoming Encounters Date Type Department Care Team (Late st Contact Info) Description 03/04/2025 11:00 AM CDT Office Visit [facility] [place] [address] [place] [address] Akash Kim MD [address] [place] [address] Health Maintenance Due Date Last Done Comments DTAP/TDAP/TD VACCINES (1 - Tdap) 01/21/1999 HEPATITIS B VACCINES (1 of 3 - 19+ 3-dose series) 01/21/1999 Preventative Visit-Managed Medicaid 01/21/1999 INFLUENZA VACCINE (#1) 2024 COLORECTAL SCREENING 01/21/2025 Colorectal Cancer Screening 01/21/2025 FIT-DNA Q 3 years 01/21/2025 FIT/FOBT Q 1 year 01/21/2025 Flex Sig/CT Colonography Q 5 years 01/21/2025 HPV VACCINES Aged Out No longer eligi ble based on patient's age to complete this topic Insurance [facility] MEDICAID Care Teams Gluing Machine Operator Electronic Relationship Specialty Start Date End Date Matilda Campos MD [address] [place] [address] [address] [place] [id number] PCP - General Internal Medicine 11/06/24
--- OUTSIDE RECORDS SUMMARY | 2025-02-25 15:16 | XMS_ITS | Encounter Summary ---
Author Organization [facility] Address [address] [place] [address] Care Team Providers Care Gender Studies Professor Name Role Phone Caden Cuba MD Primary Care Provider [phone] Reason for Referral * Consultation (Routine) - Closed Specialty Diagnoses / Procedures Referred By Tianna weiss Referred To Contact Neurology Diagnoses Multiple sclerosis (HCC) Ja Wynne APRN-CNP [address] [place] [address] Phone: tel: fax: [facility] - Neurology [address] [place] [phone] Phone: tel: fax: Referral ID Status Reason Start Date Expiration Date V isits Requested Visits Authorized [id number] Closed Specialty Services Required 09/21/2024 09/21/2025 1 1 Y MAN Encounter Details Date Type Department Care Team (Latest Contact Info) Description 09/21/2024 Transcribe Orders [facility] - Centralized Scheduling [address] [place] [phone] Ja Wynne APRN-CNP [address] [place], [place] [id number] Multiple sclerosis Social History Tobacco Use Types Packs/Day Years Used Date Smoking Tobacco: Every Day Smokeless Tobacco: Never Alcohol Use Standard Drinks/Week Comments Not Asked 0 (1 standard drink = 0.6 oz pur e alcohol) Comments Unknown Sex and Gender Information Value Date Recorded Sex Assigned at Not on file Legal Sex Female 6:09 PM BUGGY MAN Gender Identity Not on file Sexual Orientation Not on file documented as of this encounter Plan of Treatment Scheduled Referrals Name Type Priority Associated Diagnoses Order Schedule AMB REFERRAL TO NEUROLOGY Outpatient Referral Routine Multiple sclerosis 1 Occurrences starting 09/21/2024 until 09/21/2025 documented as of this encounter Visit Diagnoses Diagnosis Multiple sclerosis (HCC)- Primary Multiple sclerosis documented in this encounter Care Teams Gender Studies Professor Relationship Specialty Start Date End Date Caden Cuba MD [address] [facility] [address] [place] [address] PCP - General 04/21/15 documented as of this encounter
--- OUTSIDE RECORDS SUMMARY | 2025-02-25 15:16 | XMS_ITS | Continuity of Care Document ---
Author Organization [facility] Address [address] [place] [address] Phone Care Team Providers Care City Plant Supervisor Name Role Phone Frankie Gilmore MD Unavailable Unavailable Allergies, Adverse Reactions, Alerts Substance Reaction Status Criticality No Known Allergies Active No Inform ation Medications Medication Instructions Dosage Effective Dates (start - stop) Status Comments losartan 100 mg tablet take 1 tablet (100MG) by oral route every day 100 MG - Active Procedures Procedure Date OFFICE/OUTPATIENT VISIT, [facility] OFFICE/OUTPATIENT VISIT, EST PREV VISIT, [facility], AGE 18-39 OFFICE/OUTPATIENT VISIT, EST PREV VISIT, [facility], AGE 18-39 Advance Directives Directive Yes / No Effective Date File Name No Information Encounters Encounter Description Practice Location Reason(s) For Visit Diagnoses Date Provider Providers Copied on Encounter [facility], [place], [address] [place], [id number], tel:[phone] [facility], [place] No Information 4 Mando David. [address] [facility] [place], [id number] , [place]. tel:[phone] Referring Provider: Frankie Gilmore, [address] [facility] [place], [address]. tel:[phone] OFFICE/OUTPA TIENT VISIT, EST [facility], [place], [address] [place], [id number], tel:[phone] [facility], [place] HTN (chief complaint)tac hycardia (chief complaint)col on polyp (chief complaint) Dietary surveillance and counselingHypert ension, UnspecifiedTachy cardiaAnal and rectal polyp 4 Mando David. [address], [address], [place], [place], [address] , [place]. [phone] Referring Provider: Macario Mcbride [address], [place], [place], [address]. tel:[phone] OFFICE/OUTPA TIENT VISIT, EST [facility], [place], [address], [place], [place], [address], [place] [phone] [facility], [place] TG (chief complaint)diz ziness (chief complaint)HTN (chief complaint) Hypertension, UnspecifiedMulti ple sclerosisTachyca rdia 4 Mando Maxwell [address], [address], [place], [place], [address] , [place]. [phone] Referring Provider: Macario Mcbride [facility] [address], [place], [place], [address]. tel:[phone] PREV VISIT, EST, AGE 18-39 [facility], [place], [address], [place], [place], [address], [place] [phone] [facility], [place] HTN (chief complaint)rec gabriel bleeding (chief complaint)PHy sical (chief complaint) Routine Medical ExamRoutine Medical Exam 4 Mando David. [address], [address], [place], [place], [address] , [place]. [phone] Referring Provider: Macario Mcbr[address], [place], [place], [address]. tel:[phone] OFFICE/OUTPA TIENT VISIT, EST [facility], [place], [address], [place], [place], [address], [place] tel:[phone] [facility], [place] constipation (chief complaint)HTN (chief complaint)Uri ne color (chief complaint)MS (chief complaint) Constipation, unspecifiedHyper tension, UnspecifiedMulti ple sclerosisUrinary Tract Infection 4 Gilmore Frankie. [address], [address], [place], [place], [address] , . tel:[phone] Referring Provider: Frankie Gilmore, [address], [place], [place], [address]. tel:[phone] PREV VISIT, NEW, AGE 18-39 [facility], [address], [place], [place], [address], tel:[phone] [facility], [place] Physical (chief complaint) Routine Medical ExamRoutine Medical Exam 3 Gilmore Frankie. [address], [address], [place], [place], [address] , [place]. tel:[phone] Referring Provider: Frankie Gilmore, [address], [place], [place], [address]. tel:[phone] Family History Family Member Type Diagnosis Age [...]
--- OUTSIDE RECORDS SUMMARY | 2025-02-25 15:16 | XMS_ITS | Clinical Summary ---
Author Organization [facility] Address [address] [place] [address] Care Team Providers Care Jack Spinner Name Role Phone Matilda Campos MD Primary [...] topic Meningococcal Vaccine Aged Out No dahlia sraa eligible based on patient's age to complete this topic Pneumococcal Vaccine: Pediat rics (0 to 5 Years) and At-Risk Patients (6 to 49 Years) Aged Out No longer eligible b ased on patient's age to complete this topic RSV Immunizations Under 20 Months Aged Out No longer eligible based on patient's age to complete this topic Insurance [employer] Care Teams Jack Spinner Relationship Specialty [place] [address] [address] PCP - General INTERNAL MEDICINE 05/08/24
[2025-02-25 15:29] LABS: Basophils Percent Auto 0.5 % (0.2-1.2); Eosinophils Absolute Auto 0.2 K/mm3 (0-0.3); Eosinophils Percent Auto 2.7 % (0-4.4); Hematocrit 38.3 % (37.0-47.0); Hemoglobin 12.8 g/dL (12.0-15.0); Immature Granulocyte Absolute 0.02 K/mm3 (0.00-0.031); Immature Granulocyte Percent A 0.3 % (0-0.5); Lymphocytes Absolute Auto 1.23 K/mm3 (0.9-3.2); Lymphocytes Percent Auto 19.4 % (18.3-44.2); Mean Corpuscular HGB Conc 33.4 g/dl (32-36); Mean Corpuscular Hemoglobin 31.8 pg (26-34); Monocytes Absolute Auto 0.5 K/mm3 (0.1-0.6); Monocytes Percent Auto 8.5 % (2.6-8.5); Neutrophils Absolute Auto 4.4 K/mm3 (1.3-6.7); Neutrophils Percent Auto 68.6 % (45.5-73.1); Platelet Count Result 291 k/mm3 (150-375); Red Blood Count 4.03 M/mm3 (4.2-5.4); Red Cell Distribution Width 15.4 % (11.5-14.5); White Blood Count 6.4 K/mm3 (4.5-10.0)
[2025-02-25 17:11] LABS: Iron 87 ug/dL (37-170)
[2025-02-25 17:22] LABS: Percent Iron Saturation 26 % (20-50)
[2025-02-25 17:29] LABS: Anion Gap 7 mmol/L (4-12); Blood Urea Nitrogen 18 mg/dL (7-17); Calcium 9.3 mg/dL (8.4-10.2); Carbon Dioxide 28 mmol/L (22-30); Chloride 103 mmol/L (98-107); Estimated Glomerular Filt Rate > 60; Glucose 98 mg/dL (65-110); Potassium 4.1 mmol/L (3.4-5.0); Sodium 138 mmol/L (137-145)
[2025-02-25 18:39] LABS: Folic Acid > 20.0 ng/mL (2.76->20)
== END 2025-02-25 15:15 | disposition home or self-care (01) ==
LOC: ANHLAB 15:14
PROVIDERS: PCP Family Medicine; Visit Provider Internal Medicine Hematology & Oncology
DX: D64.9 Anemia, unspecified (principal)
CPT/HCPCS: 36415; 80048; 82607; 82728; 82746; 83540; 83550; 85025

== ENCOUNTER 2025-08-17 10:02 | Outpatient (CLI) | payer OTHER, SELFPAY ==
[2025-08-17 11:20] LABS: Hematocrit 38.6 % (37.0-47.0); Hemoglobin 12.3 g/dL (12.0-15.0); Mean Corpuscular HGB Conc 31.9 g/dl (32-36); Mean Corpuscular Hemoglobin 31.1 pg (26-34); Mean Corpuscular Volume 97.5 fl (80-100); Platelet Count Result 476 k/mm3 (150-375); Red Blood Count 3.96 M/mm3 (4.2-5.4); White Blood Count 6.7 K/mm3 (4.5-10.0)
--- OUTSIDE RECORDS SUMMARY | 2025-08-17 11:28 | XMS_ITS | Clinical Summary ---
[facility] Address [address] [place] [address] Care Team Providers Care Junior Marketing Associate Name Role Phone Matilda Campos MD Primary Care Provider [phone] Allergies No known active allergies Medications predniSONE (DELTASONE) 20 mg tablet Take 20 mg by mouth daily with breakfast. 09/26/2024 Active IBUPROFEN ORAL Take by mouth. Active ferrous sulfate (FEOSOL) 300 mg (60 mg iron)/5 mL solution Take 300 mg by mouth daily. Active Active Problems No known active problems Encounters Date Type Department Care Team Description 08/10/2025 External Device Data STL ABSTRACTION Provider, Abstract [...] Date Smoking Tobacco: Every Day Cigarettes 1 30.8 Started: 1994 Tobacco Cessation:Ready to Q uit: Not Asked; Counseling Given: Not Answered Alcohol Use Standard Drinks/Week Comments Yes 0 (1 standard drink = 0.6 oz pur e alcohol) ocasionally Sex and Gender Information Value Date Recorded Sex Assigned at Not on file Legal Sex Male 8:15 AM DIGITAL PROGRAM MANAGER Gender Identity Not on file Sexual Orientation Not on file Last Filed Vital Signs Vital Sign Reading Time Taken Comments Blood Pressure 123/86 03/04/2025 10:59 AM CDT Pulse 106 03/04/2025 10:56 AM CDT Temperature 37 C (98.6 F) 03/04/2025 10:56 AM CDT Respiratory Rate 16 03/04/2025 10:56 AM CDT Oxygen Saturation 96% 03/04/2025 10:56 AM CDT Inhaled Oxygen Concentration - - Weight 49.6 kg (109 lb 6.4 oz) 03/04/2025 10:56 AM CDT Height 167.6 cm (5' 6) 10/01/2024 1:17 PM DIGITAL PROGRAM MANAGER Body Mass Index 17.66 10/01/2024 1:17 PM DIGITAL PROGRAM MANAGER Plan of Treatment Upcoming Encounters Date Type Department Care Team (Late st Contact Info) Description 09/06/2025 3:30 PM DIGITAL PROGRAM MANAGER Office Visit [facility] Oncology and Hematology - [place] [address] [facility] [address] [place] [address] Akash Kim MD [address] [facility] [address] [place] [address] Health Maintenance Due Date Last Done Comments DTAP/TDAP/TD VACCINES (1 - Tdap) 01/21/1999 HEPATITIS B VACCINES (1 of 3 - 19+ 3-dose series) 12/1998 HPV VACCINES (1 - 3-dose SCDM series) 01/21/2007 COLORECTAL SCREENING 01/21/2025 Colorectal Cancer Screening 01/21/2025 FIT-DNA Q 3 years 01/21/2025 FIT/FOBT Q 1 year 01/21/2025 Flex Sig/CT Colonography Q 5 years 01/21/2025 INFLUENZA VACCINE (#1) 2025 Insurance [facility] MEDICAID Care Teams Junior Marketing Associate Relationship Specialty Start Date End Date Matilda Campos MD [address] [facility] [place] [address] PCP - General Internal Medicine 11/06/24
--- OUTSIDE RECORDS SUMMARY | 2025-08-17 11:28 | XMS_ITS | Clinical Summary ---
Author Organization [facility] Address [facility] [place] [address] Care Team Providers Care Machine Clothing Worker Name Role Phone Matilda Campos MD Primary Care Provider [phone] Social History Tobacco Use Types Packs/Day Years [...] of 3 - 19+ 3-dose series) 01/21/1999 HPV Vaccines (1 - 3-dose SCD M series) 01/21/2007 Cervical Cancer Screening Pa p with HPV Testing (Age 30 to 64) Every 5 Years 01/21/2010 Cervical Cancer Screening with HPV 01/21/2010 Mammogram Screening 2020 COVID-19 Vaccine (2024-2 6 season) 2025 Influenza Adult (#1) 2025 Hepatitis A Vaccines Aged Out No long er eligible based on patient's age to complete [...] patient's age to complete this topic Insurance [employer] Care Teams Machine Clothing Worker Relationship Specialty [place] [address] [address] PCP - General INTERNAL MEDICINE 05/08/24
[2025-08-17 11:30] LABS: Hemoglobin A1C 4.3 % (<5.7)
[2025-08-17 11:43] LABS: Alanine Aminotransferase 18 U/L (6-35); Albumin Level 4.7 g/dL (3.5-5.1); Alkaline Phosphatase 72 U/L (38-126); Anion Gap 9 mmol/L (4-12); Aspartate Amino Transferase 25 U/L (14-36); Bilirubin,Total 0.3 mg/dL (0.2-1.3); Blood Urea Nitrogen 18 mg/dL (7-17); Calcium 9.1 mg/dL (8.4-10.2); Carbon Dioxide 25 mmol/L (22-30); Chloride 104 mmol/L (98-107); Cholesterol 223 mg/dL (0-200); Estimated Glomerular Filt Rate > 60; Glucose 100 mg/dL (65-110); HDL Direct 66 mg/dL; Magnesium 2.1 mg/dL (1.6-2.3); Potassium 4.1 mmol/L (3.4-5.0); Sodium 138 mmol/L (137-145); Total Protein 7.4 g/dL (6.3-8.2); Triglycerides 220 mg/dL (<150)
[2025-08-17 12:19] LABS: Thyroid Stimulating Hormone 1.010 uIU/mL (0.465-4.680)
[2025-08-17 12:54] LABS: Vitamin B12 846.0 pg/mL (239-931)
== END 2025-08-17 10:03 | disposition home or self-care (01) ==
LOC: ANHLAB 10:06
PROVIDERS: Visit Provider Nurse Practitioner Family
DX: D64.9 Anemia, unspecified (principal); R53.83 Other fatigue; I10 Essential (primary) hypertension; R53.1 Weakness; E78.1 Pure hyperglyceridemia; Z13.1 Encounter for screening for diabetes mellitus
CPT/HCPCS: 36415; 80053; 80061; 82306; 82607; 82746; 83036; 83735; 84443; 85027

== ENCOUNTER 2025-09-28 14:12 | Outpatient (CLI) | payer OTHER, SELFPAY ==
--- NOTE | ~2025-09-28 | MM_ITS ---
EXAMINATION: MM screening iman BI w sreekanth HISTORY: Screening. TECHNIQUE: Craniocaudal and mediolateral oblique 3-D tomosynthesis images were obtained and synthetic 2-D images were generated. CAD analysis was submitted and interpreted. COMPARISON: None available. BREAST PARENCHYMAL COMPOSITION: Dense: The breasts are extremely dense FINDINGS: There is an asymmetry of the posterior, superior aspect of the right MLO view. There are no suspicious calcifications. No unexplained architectural distortion is seen. There are no skin or nipple abnormalities identified. There is no adenopathy seen on the images submitted. IMPRESSION: Asymmetry in the right for which additional imaging is recommended. BI-RADS 0 - Incomplete - needs additional imaging evaluation Reviewed, dictated and finalized at location C. M FIELD TECHNICIAN
--- OUTSIDE RECORDS SUMMARY | 2025-09-28 16:19 | XMS_ITS | Clinical Summary ---
Author Organization [facility] Address [address] [place] [address] Care Team Providers Care Spa Consultant Name Role Phone Caden Cuba MD Primary Care Provider [phone] Source Comments [facility] and Associated Physician Practices is amultiple site organization consisting of ambulatory clinics and hospital sitesin [place], [place], [place] and [place]. This disclosure is being madepursuant to the Care Everywhere program and may not contain all information available regarding this patient. Last updated 18.[facility] [employer] Social History Tobacco Use Types Packs/Day Years Used Date Smoking Tobacco: Every Day Smokeless Tobacco: Never Alcohol Use Standard Drinks/Week Comments Not Asked 0 (1 standard drink = 0.6 oz pur e alcohol) Comments Unknown Sex and Gender Information Value Date Recorded Sex Assigned at Not on file Legal Sex Female 6:09 PM CPA TAX Gender Identity Not on file Sexual Orientation [...] 1:00 PM CDT Height 167.6 cm (5' 6) 07/04/2015 1:00 PM CDT Body Mass Index [...] SCREENING 1980 LIPID TESTING 1980 MAMMOGRAM 1980 HIV SCREENING 01/21/1995 HEPATITIS C SCREENING 01/17/1998 DTAP/TDAP/TD VACCINES (1 - Tdap) 01/21/1999 HEPATITIS B VACCINE (1 of 3 - 19+ 3-dose series) 01/21/1999 PNEUMOCOCCAL VACCINE (1 of 2 - PCV) 01/21/1999 PAP SMEAR 01/21/2001 HPV VACCINE (1 - 3-dose SCDM series) 01/21/2007 DEPRESSION SCREENING 10/21/2024 COVID-19 VACCINE (1 - 2024-2 6 season) 2025 INFLUENZA VACCINE (#1) 2025 ZOSTER VACCINE (1 of 2) 01/21/2030 HIB VACCINE Aged Out No longer eligi ble based on patient's age to complete this topic MENINGOCOCCAL (Group B) VACC INE SHARED DECISION-MAKING Aged Out No longer eligibl e based on patient's age to complete this topic MENINGOCOCCAL GROUPS A/C/Y/W VACCINE Aged Out No longer eligible b ased on patient's age to complete this topic Insurance [facility] Care Teams Spa Consultant Relationship Specialty Start Date End Date Caden Cuba MD [address] [place] [address] PCP - General 04/21/15
--- OUTSIDE RECORDS SUMMARY | 2025-09-28 16:19 | XMS_ITS | Encounter Summary ---
Author Organization [facility] Address [address] [place] [address] Care Team Providers Care Group Segment Consultant Name Role Phone Caden Cuba MD Primary Care Provider [phone] Reason for Referral * Consultation (Routine) - Closed Specialty Diagnoses / Procedures Referred By Tianna weiss Referred To Contact Neurology Diagnoses Multiple sclerosis Ja Wynne APRN-CNP [address] [place] [address] Phone: tel: fax: [facility] - Neurology [address] [place] [phone] Phone: tel: fax: Referral ID Status Reason Start Date Expiration Date V isits Requested Visits Authorized [id number] Closed Specialty Services Required 09/21/2024 09/21/2025 1 1 FLOOR INSTALLER Encounter Details Date Type Department Care Team (Latest Contact Info) Description 09/21/2024 Transcribe Orders [facility] - Centralized Scheduling [address] [place] [phone] Ja Wynne APRN-CNP [address] [place] [address] Multiple sclerosis Social History Tobacco Use Types Packs/Day Years Used Date Smoking Tobacco: Every Day Smokeless Tobacco: Never Alcohol Use Standard Drinks/Week Comments Not Asked 0 (1 standard drink = 0.6 oz pur e alcohol) Comments Unknown Sex and Gender Information Value Date Recorded Sex Assigned at Not on file Legal Sex Female 6:09 PM CORK FLOOR INSTALLER Gender Identity Not on file Sexual Orientation Not on file documented as of this encounter Plan of Treatment Scheduled Referrals Name Type Priority Associated Diagnoses Order Schedule AMB REFERRAL TO NEUROLOGY Outpatient Referral Routine Multiple sclerosis 1 Occurrences starting 09/21/2024 until 09/21/2025 documented as of this encounter Visit Diagnoses Diagnosis Multiple sclerosis- Primary documented in this encounter Care Teams Group Segment Consultant Relationship Specialty Start Date End Date Caden Cuba MD [address] [place] [address] PCP - General 04/21/15 documented as of this encounter
--- OUTSIDE RECORDS SUMMARY | 2025-09-28 16:19 | XMS_ITS | Clinical Summary ---
Author Organization [facility] Address [address] [place] [address] Care Team Providers Care Glove Finisher Name Role Phone Matilda Campos MD Primary Care Provider [phone] Allergies No known active allergies Medications predniSONE (DELTASONE) 20 mg tablet Take 20 mg by mouth daily with breakfast. 09/26/2024 Active IBUPROFEN ORAL Take by mouth. Active ferrous sulfate (FEOSOL) 300 mg (60 mg iron)/5 mL solution Take 300 mg by mouth daily. Active Active Problems No known active problems Encounters Date Type Department Care Team Description 09/21/2025 External Device Data STL ABSTRACTION Provider, Abstract 08/24/2025 External Device Data STL ABSTRACTION Provider, Abstract 08/18/2025 External Device Data STL ABSTRACTION Provider, Abstract 08/18/2025 External Device Data STL ABSTRACTION Provider, Abstract 08/10/2025 External Device Data STL ABSTRACTION Provider, [...] Date Smoking Tobacco: Every Day Cigarettes 1 30.9 Started: 1994 Tobacco Cessation:Ready to Q uit: Not Asked; Counseling Given: Not Answered Alcohol Use Standard Drinks/Week Comments Yes 0 (1 standard drink = 0.6 oz pur e alcohol) ocasionally Sex and Gender Information Value Date Recorded Sex Assigned at Not on file Legal Sex Male 8:15 AM PROPOSAL REP Gender Identity Not on file Sexual Orientation [...] 167.6 cm (5' 6) 10/01/2024 1:17 PM PROPOSAL REP Body Mass Index 17.66 10/01/2024 1:17 PM PROPOSAL REP Plan of Treatment Health Maintenance Due Date Last Done Comments DTAP/TDAP/TD VACCINES (1 - Tdap) 01/21/1999 HEPATITIS B VACCINES (1 of 3 - 19+ 3-dose series) 12/1998 COLORECTAL SCREENING 01/21/2025 Colorectal Cancer Screening 01/21/2025 FIT-DNA Q 3 years 01/21/2025 FIT/FOBT Q 1 year 01/21/2025 Flex Sig/CT Colonography Q 5 years 01/21/2025 INFLUENZA VACCINE (#1) 2025 HPV VACCINES (No Doses Required) Completed Insurance [facility] MEDICAID Care Teams Glove Finisher Relationship Specialty Start Date End Date Matilda Campos MD [address] [place] [address] Dr [address] [place] [phone] PCP - General Internal Medicine 11/06/24
--- OUTSIDE RECORDS SUMMARY | 2025-09-28 16:19 | XMS_ITS | Clinical Summary ---
Author Organization [facility] Address [facility] [place] [address] Care Team Providers Care Electronic Console Display Operator Name Role Phone Matilda Campos MD Primary Care Provider [phone] Social History Tobacco Use Types Packs/Day Years [...] patient's age to complete this topic Insurance [place] Care Teams Electronic Console Display Operator Relationship Specialty Start [place] [address] [address] PCP - General INTERNAL MEDICINE 05/08/24
== END 2025-09-28 14:13 | disposition home or self-care (01) ==
LOC: ANHFOHIMG 14:15
PROVIDERS: Visit Provider Nurse Practitioner Family
DX: Z12.31 Encounter for screening mammogram for malignant neoplasm of breast (principal); R92.8 Other abnormal and inconclusive findings on diagnostic imaging of breast
CPT/HCPCS: 77063; 77067